=== PATIENT | male | born 1980 | race Caucasian/White ===

== ENCOUNTER 2016-07-02 12:07 | Emergency (ER) | payer OTHER ==
--- NOTE | 2016-07-02 14:13 | EDDOCDS ---
Physician Documentation [facility] Name: José Miguel Terrell Age: 35 yrs Sex: Male : 1980 Arrival Date: 07/02/2016 Time: 12:07 Bed I10 / 23 Private MD: Flynn Prado A. Disposition: 07/02/16 13:59 Discharged to Home/Self Care. Impression: Dental caries. - Condition is Stable. - Discharge Instructions: Dental Pain. - Prescriptions for Clindamycin HCl 300 mg Oral Capsule - take 1 capsule by ORAL route every 6 hours; 40 capsule. Percocet 5- 325 mg Oral Tablet - take 1 tablet by ORAL route every 6 hours As needed MDD: 4 tabs; 20 tablet. - Medication Reconciliation, Local Pharmacy Hours form. - Follow up: Your, Dentist; When: As soon as possible; Reason: Further diagnostic work-up, Continuance of care. - Problem is an ongoing problem. - Symptoms have worsened. Historical: - Allergies: PENICILLINS; - Home Meds: 1. lisinopril 20 mg Oral tab 1 tab once daily (Last dose: 07/01/2016) 2. Xigduo XR Unknown oral once daily (Last dose: 07/01/2016) 3. Unknown Antidepressant daily - PMHx: Depression; Diabetes - NIDDM: controlled; Hypertension; - PSHx: bilateral eye surgery; - Social history: Smoking status: Patient states was never smoker of tobacco. No barriers to communication noted, The patient speaks fluent Yi, Speaks appropriately for age. - Family history: Not pertinent. - : The pt / caregiver states he / she is not on anticoagulants. Home medication list is obtained from the patient. - Exposure Risk Screening:: None identified. Vital Signs: 07/02 12:13 BP 202 / 106 RA Sitting (auto/lg); Pulse 93; Resp 18; Temp 98.5(T); Pulse Ox 99% on dem1 R/A; Weight 90.72 kg / 200 lbs; Height 5 ft. 8 in. (172.72 cm); Pain 9/10; 14:00 Resp 18; Pain 8/10; ttb 12:13 Body Mass Index 30.41 (90.72 kg, 172.72 cm) dem1 Signatures: Glynn Moreno, TALENT ACQUISITION CONSULTANT TALENT ACQUISITION CONSULTANT Sandra Feliciano,RN RN kr3 Rachel Mack, RN RN ttb TOMEKAD
--- NOTE | 2016-07-02 14:13 | EDDOCDS ---
Nurse's Notes [facility] Name: José Miguel Terrell Age: 35 yrs Sex: Male : 1980 Arrival Date: 07/02/2016 Time: 12:07 Bed I10 / 23 Private MD: Flynn Prado A. Diagnosis: Dental caries Presentation: 07/02 12:13 Presenting complaint: Patient states: right upper dental pain for 1 1/2 days. Adult kr3 Sepsis Screening: The patient does not have new or worsening altered mentation. Patient's respiratory rate is less than 22. Systolic blood pressure is greater than 100. Patient has a qSOFA score of 0- Negative Sepsis Screen. Suicide/Homicide risk assessment- the patient denies having any suicidal and/or homicidal ideations and does not present with any other emotional, behavioral or mental health complaints. Status: Patient is not a director of physiotherapy services or dependent. Transition of care: patient was not received from another setting of care. 12:13 Method Of Arrival: Walkin/Carried/Asstd kr3 12:13 Acuity: ALONZO Level 4 kr3 Triage Assessment: 12:15 General: Appears uncomfortable, Behavior is appropriate for age, cooperative. Pain: kr3 Location: right side of face Pain currently is 8 out of 10 on a pain scale. HIV screening NA for this visit Offered previously. EENT: Reports pain in mouth. Respiratory: Respiratory effort is even, unlabored. Derm: Swollen area noted on right cheek. Historical: - Allergies: PENICILLINS; - Home Meds: 1. lisinopril 20 mg Oral tab 1 tab once daily (Last dose: 07/01/2016) 2. Xigduo XR Unknown oral once daily (Last dose: 07/01/2016) 3. Unknown Antidepressant daily - PMHx: Depression; Diabetes - NIDDM: controlled; Hypertension; - PSHx: bilateral eye surgery; - Social history: Smoking status: Patient states was never smoker of tobacco. No barriers to communication noted, The patient speaks fluent Sao Tomean, Speaks appropriately for age. - Family history: Not pertinent. - : The pt / caregiver states he / she is not on anticoagulants. Home medication list is obtained from the patient. - Exposure Risk Screening:: None identified. Screenin:09 Screening information is obtained from the patient. Fall risk: No risks identified. ttb Assistance ADL's: requires no assistance with activities of daily living. Abuse/DV Screen: The patient / caregiver reports he/she is: not in a situation that causes fear, pain or injury. Nutritional screening: No deficits noted. Advance Directives: Currently, there is no health care proxy. home support is adequate. Assessment: 13:30 Adult Sepsis Screening: The patient does not have new or worsening altered mentation. ttb Patient's respiratory rate is less than 22. Systolic blood pressure is greater than 100. Patient has a qSOFA score of 0- Negative Sepsis Screen. 14:09 General: Appears in no apparent distress, well nourished, well groomed, Behavior is ttb appropriate for age, cooperative, pleasant. Pain: Location: right mouth. Neurological: Level of Consciousness is awake, alert. Cardiovascular: Chest pain is denied. Respiratory: Airway is patent Denies cough, shortness of breath. GI: Denies nausea, vomiting, pain. Derm: Skin is normal. Injury Description: No known injury. Vital Signs: 12:13 BP 202 / 106 RA Sitting (auto/lg); Pulse 93; Resp 18; Temp 98.5(T); Pulse Ox 99% on [facility] R/A; Weight 90.72 kg; Height 5 ft. 8 in. (172.72 cm); Pain 9/10; 14:00 Resp 18; Pain 8/10; ttb 12:13 Body Mass Index 30.41 (90.72 kg, 172.72 cm) [facility] Vitals: 12:10 Log In Time: July 02, 2016 at 12:07. [facility] ED Course: 12:09 Patient visited by Juliocesar Collado. gr2 12:09 Patient moved to Waiting gr2 12:10 NO PRIMARY PHYSICIAN, . is Private Physician. gr2 12:11 Patient visited by Juliocesar Collado. gr2 12:11 Patient moved to Pre RCE gr2 12:13 Triage Initiated kr3 12:15 Flynn Prado is Private Physician. dem1 13:46 Patient moved to I10 / 23 dsf 13:47 Glynn Moreno FNP is PHCP. ke 13:47 Patient visited by Glynn Moreno FNP. ke 13:47 Patient visited by Glynn Moreno FNP. ke 13:57 Your, Dentist is Referral Physician. ke 14:09 The patient / caregiver is instructed regarding the plan of care and ED course. Patient ttb has correct armband on for positive identification. 14:09 No IV's were initiated during this patient's visit. No procedures done that require ttb assistance. 14:12 Patient visited by Rachel Mack RN. ttb Order Results: There are currently no results for this order. Outcome: 13:59 Discharge ordered by Provider. ke 14:09 Discharge Assessment: Patient awake, alert and oriented x 3. No cognitive and/or ttb functional deficits noted. Patient verbalized understanding of disposition instructions. Patient awake and alert. patient administered narcotics - no. The following High Risk Discharge criteria are identified: None. Discharged to home ambulatory. Condition: good Condition: stable Condition: improved. Discharge instructions given to patient, Instructed on discharge instructions, follow up and referral plans. medication usage, no driving heavy equipment, no drinking with medication, Demonstrated understanding of instructions, medications, no d/d with narcs Pt was receptive of discharge instructions/ teaching. Prescriptions given X 2. No special radiology studies were completed. Property :Personal belongings accompany Pt. 14:12 Patient left the ED. ttb Signatures: Glynn Moreno, DRY HOUSE WHEELER DRY HOUSE WHEELER Sandra FelicianoRN RN Megan MaldonadoRN RN Gil Dixon dem1 Rachel Mack, BERNABE RN ttb Juliocesar Collado gr2 Corrections: (The following items were deleted from the chart) 12:15 12:10 Log In Time: July 02, 2016 at 12:10 gr2 dem1 12:15 12:10 BP 158 / 107; Pulse 78bpm; Resp 18bpm; Spontaneous; Pulse Ox 98% RA; Temp 96.0F dem1 Oral; 104.33 kg Reported; Height 5 ft. 10 in. Reported; BMI: 33.0; Pain 3/10; gr2 MTDD
--- NOTE | 2016-07-04 15:12 | EDDOCDS ---
Physician Documentation [facility] Name: José Miguel Terrell Age: 35 yrs Sex: Male : 1980 Arrival Date: 07/02/2016 Time: 12:07 Bed I10 / 23 Private MD: Flynn Prado A. Disposition: 07/02/16 13:59 Discharged to Home/Self Care. Impression: Dental caries. - Condition is Stable. - Discharge Instructions: Dental Pain. - Prescriptions for Clindamycin HCl 300 mg Oral Capsule - take 1 capsule by ORAL route every 6 hours; 40 capsule. Percocet 5- 325 mg Oral Tablet - take 1 tablet by ORAL route every 6 hours As needed MDD: 4 tabs; 20 tablet. - Medication Reconciliation, Local Pharmacy Hours form. - Follow up: Your, Dentist; When: As soon as possible; Reason: Further diagnostic work-up, Continuance of care. - Problem is an ongoing problem. - Symptoms have worsened. Historical: - Allergies: PENICILLINS; - Home Meds: 1. lisinopril 20 mg Oral tab 1 tab once daily (Last dose: 07/01/2016) 2. Xigduo XR Unknown oral once daily (Last dose: 07/01/2016) 3. Unknown Antidepressant daily - PMHx: Depression; Diabetes - NIDDM: controlled; Hypertension; - PSHx: bilateral eye surgery; - Social history: Smoking status: Patient states was never smoker of tobacco. No barriers to communication noted, The patient speaks fluent German, Speaks appropriately for age. - Family history: Not pertinent. - : The pt / caregiver states he / she is not on anticoagulants. Home medication list is obtained from the patient. - Exposure Risk Screening:: None identified. Vital Signs: 07/02 12:13 BP 202 / 106 RA Sitting (auto/lg); Pulse 93; Resp 18; Temp 98.5(T); Pulse Ox 99% on dem1 R/A; Weight 90.72 kg / 200 lbs; Height 5 ft. 8 in. (172.72 cm); Pain 9/10; 14:00 Resp 18; Pain 8/10; ttb 12:13 Body Mass Index 30.41 (90.72 kg, 172.72 cm) dem1 MDM: 14:44 [facility] Payment Agreement was scanned into [employer] and attached to record. pm4 07/03 07:40 T-Sheet-- Draft Copy was scanned into [employer] and attached to record. gb Signatures: Vivi Miller, Reg Reg gb Glynn Moreno, JEFF LEÓNP Sandra Feliciano,RN RN kr3 Rachel Mack RN RN ttb Ubaldo Harris, Reg Reg pm4 The chart was reviewed and I authenticate all verbal orders and agree with the evaluation and treatment provided.Attachments: 07/02 14:44 [facility] [place] pm4 07/03 07:40 T-Sheet-- Draft Copy gb Chart Complete MTDD
--- NOTE | 2016-07-04 15:12 | EDDOCDS ---
Physician Documentation [facility] Name: José Miguel Terrell Age: 35 yrs Sex: Male : 1980 Arrival Date: 07/02/2016 Time: 12:07 Bed I10 / 23 Private MD: Flynn Prado A. Disposition: 07/02/16 13:59 Discharged to Home/Self Care. Impression: Dental caries. - Condition is Stable. - Discharge Instructions: Dental Pain. - Prescriptions for Clindamycin HCl 300 mg Oral Capsule - take 1 capsule by ORAL route every 6 hours; 40 capsule. Percocet 5- 325 mg Oral Tablet - take 1 tablet by ORAL route every 6 hours As needed MDD: 4 tabs; 20 tablet. - Medication Reconciliation, Local Pharmacy Hours form. - Follow up: Your, Dentist; When: As soon as possible; Reason: Further diagnostic work-up, Continuance of care. - Problem is an ongoing problem. - Symptoms have worsened. Historical: - Allergies: PENICILLINS; - Home Meds: 1. lisinopril 20 mg Oral tab 1 tab once daily (Last dose: 07/01/2016) 2. Xigduo XR Unknown oral once daily (Last dose: 07/01/2016) 3. Unknown Antidepressant daily - PMHx: Depression; Diabetes - NIDDM: controlled; Hypertension; - PSHx: bilateral eye surgery; - Social history: Smoking status: Patient states was never smoker of tobacco. No barriers to communication noted, The patient speaks fluent Romansh, Speaks appropriately for age. - Family history: Not pertinent. - : The pt / caregiver states he / she is not on anticoagulants. Home medication list is obtained from the patient. - Exposure Risk Screening:: None identified. Vital Signs: 07/02 12:13 BP 202 / 106 RA Sitting (auto/lg); Pulse 93; Resp 18; Temp 98.5(T); Pulse Ox 99% on dem1 R/A; Weight 90.72 kg / 200 lbs; Height 5 ft. 8 in. (172.72 cm); Pain 9/10; 14:00 Resp 18; Pain 8/10; ttb 12:13 Body Mass Index 30.41 (90.72 kg, 172.72 cm) dem1 MDM: 14:44 [facility] Payment Agreement was scanned into [employer] and attached to record. pm4 07/03 07:40 T-Sheet-- Draft Copy was scanned into [employer] and attached to record. gb Signatures: Vivi Miller, Reg Reg gb Glynn Moreno, JEFF LEÓNP Sandra Feliciano,RN RN kr3 Rachel Mack RN RN ttb Ubaldo Harris, Reg Reg pm4 The chart was reviewed and I authenticate all verbal orders and agree with the evaluation and treatment provided.Attachments: 07/02 14:44 [facility] Payment Agreement pm4 07/03 07:40 T-Sheet-- Draft Copy gb Chart Complete MTDD
--- NOTE | 2016-07-04 15:13 | EDDOCDS ---
Nurse's Notes [facility] Name: José Miguel Terrell Age: 35 yrs Sex: Male : 1980 Arrival Date: 07/02/2016 Time: 12:07 Bed I10 / 23 Private MD: Flynn Prado A. Diagnosis: Dental caries Presentation: 07/02 12:13 Presenting complaint: Patient states: right upper dental pain for 1 1/2 days. Adult kr3 Sepsis Screening: The patient does not have new or worsening altered mentation. Patient's respiratory rate is less than 22. Systolic blood pressure is greater than 100. Patient has a qSOFA score of 0- Negative Sepsis Screen. Suicide/Homicide risk assessment- the patient denies having any suicidal and/or homicidal ideations and does not present with any other emotional, behavioral or mental health complaints. Status: Patient is not a service desk team lead or dependent. Transition of care: patient was not received from another setting of care. 12:13 Method Of Arrival: Walkin/Carried/Asstd kr3 12:13 Acuity: ALONZO Level 4 kr3 Triage Assessment: 12:15 General: Appears uncomfortable, Behavior is appropriate for age, cooperative. Pain: kr3 Location: right side of face Pain currently is 8 out of 10 on a pain scale. HIV screening NA for this visit Offered previously. EENT: Reports pain in mouth. Respiratory: Respiratory effort is even, unlabored. Derm: Swollen area noted on right cheek. Historical: - Allergies: PENICILLINS; - Home Meds: 1. lisinopril 20 mg Oral tab 1 tab once daily (Last dose: 07/01/2016) 2. Xigduo XR Unknown oral once daily (Last dose: 07/01/2016) 3. Unknown Antidepressant daily - PMHx: Depression; Diabetes - NIDDM: controlled; Hypertension; - PSHx: bilateral eye surgery; - Social history: Smoking status: Patient states was never smoker of tobacco. No barriers to communication noted, The patient speaks fluent Ethiopian, Speaks appropriately for age. - Family history: Not pertinent. - : The pt / caregiver states he / she is not on anticoagulants. Home medication list is obtained from the patient. - Exposure Risk Screening:: None identified. Screenin:09 Screening information is obtained from the patient. Fall risk: No risks identified. ttb Assistance ADL's: requires no assistance with activities of daily living. Abuse/DV Screen: The patient / caregiver reports he/she is: not in a situation that causes fear, pain or injury. Nutritional screening: No deficits noted. Advance Directives: Currently, there is no health care proxy. home support is adequate. Assessment: 13:30 Adult Sepsis Screening: The patient does not have new or worsening altered mentation. ttb Patient's respiratory rate is less than 22. Systolic blood pressure is greater than 100. Patient has a qSOFA score of 0- Negative Sepsis Screen. 14:09 General: Appears in no apparent distress, well nourished, well groomed, Behavior is ttb appropriate for age, cooperative, pleasant. Pain: Location: right mouth. Neurological: Level of Consciousness is awake, alert. Cardiovascular: Chest pain is denied. Respiratory: Airway is patent Denies cough, shortness of breath. GI: Denies nausea, vomiting, pain. Derm: Skin is normal. Injury Description: No known injury. Vital Signs: 12:13 BP 202 / 106 RA Sitting (auto/lg); Pulse 93; Resp 18; Temp 98.5(T); Pulse Ox 99% on [facility] R/A; Weight 90.72 kg; Height 5 ft. 8 in. (172.72 cm); Pain 9/10; 14:00 Resp 18; Pain 8/10; ttb 12:13 Body Mass Index 30.41 (90.72 kg, 172.72 cm) [facility] Vitals: 12:10 Log In Time: July 02, 2016 at 12:07. [facility] ED Course: 12:09 Patient visited by Juliocesar Collado. gr2 12:09 Patient moved to Waiting gr2 12:10 NO PRIMARY PHYSICIAN, . is Private Physician. gr2 12:11 Patient visited by Juliocesar Collado. gr2 12:11 Patient moved to Pre RCE gr2 12:13 Triage Initiated kr3 12:15 Flynn rPado is Private Physician. dem1 13:46 Patient moved to I10 / 23 dsf 13:47 Glynn Moreno FNP is PHCP. ke 13:47 Patient visited by Glynn Moreno FNP. ke 13:47 Patient visited by Glynn Moreno FNP. ke 13:57 Your, Dentist is Referral Physician. ke 14:09 The patient / caregiver is instructed regarding the plan of care and ED course. Patient ttb has correct armband on for positive identification. 14:09 No IV's were initiated during this patient's visit. No procedures done that require ttb assistance. 14:12 Patient visited by Rachel Mack RN. ttb 14:40 Patient name changed from José Miguel\Zulma\Dhruv\S\Xander\S\ to José Miguel\Zulma\Calixto\S\Xander. EDMS 14:44 [place] [place] was scanned into [employer] and attached to record. pm4 07/03 07:40 T-Sheet-- Draft Copy was scanned into [employer] and attached to record. gb Order Results: There are currently no results for this order. Outcome: 07/02 13:59 Discharge ordered by Provider. ke 14:09 Discharge Assessment: Patient awake, alert and oriented x 3. No cognitive and/or ttb functional deficits noted. Patient verbalized understanding of disposition instructions. Patient awake and alert. patient administered narcotics - no. The following High Risk Discharge criteria are identified: None. Discharged to home ambulatory. Condition: good Condition: stable Condition: improved. Discharge instructions given to patient, Instructed on discharge instructions, follow up and referral plans. medication usage, no driving heavy equipment, no drinking with medication, Demonstrated understanding of instructions, medications, no d/d with narcs Pt was receptive of discharge instructions/ teaching. Prescriptions given X 2. No special radiology studies were completed. Property :Personal belongings accompany Pt. 14:12 Patient left the ED. ttb Signatures: [facility] Vivi Miller, Reg Reg gb Glynn Moreno, REGISTERED PHARMACY TECHNICIAN REGISTERED PHARMACY TECHNICIAN Sandra FelicianoRN RN Megan Maldonado RN RN dsf Mack, Demeishia dem1 Rachel Mack RN RN ttb Juliocesar Collado gr2 Ubaldo Harris, Reg Reg pm4 Corrections: (The following items were deleted from the chart) 12:15 12:10 Log In Time: July 02, 2016 at 12:10 gr2 dem1 12:15 12:10 BP 158 / 107; Pulse 78bpm; Resp 18bpm; Spontaneous; Pulse Ox 98% RA; Temp 96.0F dem1 Oral; 104.33 kg Reported; Height 5 ft. 10 in. Reported; BMI: 33.0; Pain 3/10; gr2 Chart Complete MTDD
== END 2016-07-02 14:12 | disposition home or self-care (01) ==
LOC: M ED 12:07
DX: K02.9 Dental caries, unspecified (principal); K05.10 Chronic gingivitis, plaque induced; R68.84 Jaw pain; G50.1 Atypical facial pain; K08.9 Disorder of teeth and supporting structures, unspecified; F32.9 Major depressive disorder, single episode, unspecified; E11.9 Type 2 diabetes mellitus without complications; I10 Essential (primary) hypertension; Z79.899 Other long term (current) drug therapy; Z88.0 Allergy status to penicillin

== ENCOUNTER 2016-07-04 13:39 | Emergency (ER) | payer OTHER ==
--- NOTE | 2016-07-04 14:33 | EDDOCDS ---
Nurse's Notes [facility] Name: José Miguel Terrell Age: 35 yrs Sex: Male : 1980 Arrival Date: 07/04/2016 Time: 13:39 Bed TR7 Private MD: Flynn Prado A. Diagnosis: Pain in left upper arm;Pain in left shoulder Presentation: 07/04 13:43 Presenting complaint: Patient states: "I've been having some left arm pain today that jc4 has been causing me a little bit of concern". States that pain began a couple of hours ago and has been intermittent. Denies any chest pain. Denies any injury to arm. Pt points to left triceps when asked where pain located. Adult Sepsis Screening: The patient does not have new or worsening altered mentation. Patient's respiratory rate is less than 22. Systolic blood pressure is greater than 100. Patient has a qSOFA score of 0- Negative Sepsis Screen. Suicide/Homicide risk assessment- the patient denies having any suicidal and/or homicidal ideations and does not present with any other emotional, behavioral or mental health complaints. 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 Transition of care: patient was not received from another setting of care. 13:43 Acuity: ALONZO Level 3 jc4 13:43 Method Of Arrival: Walkin/Carried/Asstd jc4 Triage Assessment: 13:47 General: Appears in no apparent distress. Pain: Denies pain. Location: left tricep Is jc4 intermittent. HIV screening NA for this visit Offered previously. Musculoskeletal: Circulation, motion, and sensation intact. Historical: - Allergies: PENICILLINS (throat closes); - Home Meds: 1. lisinopril 20 mg Oral tab 1 tab once daily (Last dose: 07/04/2016 12:45) 2. Xigduo XR 5-500 mg oral TBph 1 tab twice a day (Last dose: 07/04/2016 12:45) 3. Percocet 5-325 mg Oral tab 1 tab every 4 hours as needed (Last dose: 07/04/2016 08:00) 4. Clindamycin Oral 1 cap 4 times per day (Last dose: 07/04/2016 08:00) 5. glipizide 2.5 mg oral tr24 1 tabs once daily (Last dose: 07/04/2016 12:45) 6. Sertraline 25 mg daily (Last dose: 07/04/2016 12:45) - PMHx: Depression; Diabetes - NIDDM: controlled; Hypertension; - PSHx: Eye Surgery for Retinopathy; - Social history: Smoking status: Patient states was never smoker of tobacco. No barriers to communication noted, The patient speaks fluent Tajik. - Family history: Not pertinent. - : The pt / caregiver states he / she is not on anticoagulants. Home medication list is obtained from the patient. - Exposure Risk Screening:: None identified. Screenin:30 Screening information is obtained from the patient. Primary language is Tajik. Fall dls risk: No risks identified. Assistance ADL's: requires no assistance with activities of daily living. Abuse/DV Screen: The patient / caregiver reports he/she is: not in a situation that causes fear, pain or injury. Nutritional screening: No deficits noted. Advance Directives: Currently, there is no health care proxy. There is no active DNR order. There is no Power of Simulation Educator. Advance directive information has not previously been placed in an [facility] medical record. home support is adequate. Assessment: 14:30 General: Appears uncomfortable, well developed, well nourished, well groomed, Behavior dls is cooperative. Awake, alert, oriented. Skin warm and dry. Moves all extremities. Bilateral breath sounds clear. Respirations unlabored. Abdomen soft, non-tender. No apparent distress. The patient / caregiver is instructed regarding the plan of care and ED course. Vital Signs: 13:41 BP 152 / 86; Pulse 98; Resp 18 S; Temp 98.5(O); Pulse Ox 98% on R/A; Weight 90.72 kg gr2 (R); Height 5 ft. 8 in. (172.72 cm) (R); Pain 6/10; 13:41 Body Mass Index 30.41 (90.72 kg, 172.72 cm) gr2 Vitals: 13:41 Log In Time: July 04, 2016 at 13:41. gr2 ED Course: 13:41 Patient visited by Juliocesar Collado. gr2 13:41 Flynn Prado is Private Physician. gr2 13:41 Patient moved to Waiting gr2 13:42 Patient visited by Juliocesar Collado. gr2 13:42 Patient moved to Pre RCE gr2 13:44 Triage Initiated jc4 13:48 Patient moved to PD2 / 27 jc4 13:58 Patient moved to Triage 2 js13 14:05 Vern Mayo PA is PHCP. btw 14:05 Darian Zapien MD is Attending Physician. btw 14:11 Patient visited by Vern Mayo PA. btw 14:25 Flynn Prado is Referral Physician. btw 14:29 Patient moved to TR7 dls 14:29 [facility] Payment Agreement was scanned into [employer] and attached to record. lg 14:30 Accompanied by Family Member. dls 14:32 No IV's were initiated during this patient's visit. No procedures done that require dls assistance. Order Results: There are currently no results for this order. Outcome: 14:25 Discharge ordered by Provider. btw 14:30 The following High Risk Discharge criteria are identified: None. Discharged to home dls ambulatory, with family. Condition: stable. Discharge instructions given to patient, Instructed on discharge instructions, follow up and referral plans. Demonstrated understanding of instructions, Pt was receptive of discharge instructions/ teaching. No special radiology studies were completed. 14:32 Discharge Assessment: Patient awake, alert and oriented x 3. No cognitive and/or dls functional deficits noted. Patient verbalized understanding of disposition instructions. patient administered narcotics - no. The following High Risk Discharge criteria are identified: None. Discharged to home ambulatory, with family. Property sent home with patient. 14:32 Patient left the ED. dls Signatures: Vaishnavi Denson RN RN dls Aditi Arzola, Reg Reg Vern Mayo PA PA bt Haven Sandoval RN RN jc4 Haven Schmitt RN RN js13 Juliocesar Collado gr2 Corrections: (The following items were deleted from the chart) 13:51 13:48 Home Meds: glipizide 5 mg Oral tr24 1 tab once daily (Last Dose: 07/04/2016 jc4 12:45); jc4 MTDD
--- NOTE | 2016-07-04 14:33 | EDDOCDS ---
Physician Documentation [facility] Name: José Miguel Terrell Age: 35 yrs Sex: Male : 1980 Arrival Date: 07/04/2016 Time: 13:39 Bed TR7 Private MD: Flynn Prado A. Disposition: 07/04/16 14:25 Discharged to Home/Self Care. Impression: Pain in left upper arm, Pain in left shoulder. - Condition is Stable. - Discharge Instructions: Musculoskeletal Pain, Shoulder Pain, [id number]. - Medication Reconciliation, Local Pharmacy Hours form. - Follow up: Flynn Prado; When: 2 - 3 days; Reason: Further diagnostic work-up, Recheck today's complaints, Continuance of care. - Problem is new. - Symptoms are unchanged. Historical: - Allergies: PENICILLINS (throat closes); - Home Meds: 1. lisinopril 20 mg Oral tab 1 tab once daily (Last dose: 07/04/2016 12:45) 2. Xigduo XR 5-500 mg oral TBph 1 tab twice a day (Last dose: 07/04/2016 12:45) 3. Percocet 5-325 mg Oral tab 1 tab every 4 hours as needed (Last dose: 07/04/2016 08:00) 4. Clindamycin Oral 1 cap 4 times per day (Last dose: 07/04/2016 08:00) 5. glipizide 2.5 mg oral tr24 1 tabs once daily (Last dose: 07/04/2016 12:45) 6. Sertraline 25 mg daily (Last dose: 07/04/2016 12:45) - PMHx: Depression; Diabetes - NIDDM: controlled; Hypertension; - PSHx: Eye Surgery for Retinopathy; - Social history: Smoking status: Patient states was never smoker of tobacco. No barriers to communication noted, The patient speaks fluent Romansh. - Family history: Not pertinent. - : The pt / caregiver states he / she is not on anticoagulants. Home medication list is obtained from the patient. - Exposure Risk Screening:: None identified. Vital Signs: 07/04 13:41 BP 152 / 86; Pulse 98; Resp 18 S; Temp 98.5(O); Pulse Ox 98% on R/A; Weight 90.72 kg / gr2 200 lbs (R); Height 5 ft. 8 in. (172.72 cm) (R); Pain 6/10; 13:41 Body Mass Index 30.41 (90.72 kg, 172.72 cm) gr2 MDM: 13:49 ECG WITH READING ER PHYS+CARDIAG ordered. EDVT 14:13 Financial registration complete. 14:29 [facility] Payment Agreement was scanned into [employer] and attached to record. Signatures: Dispatcher [employer] EDVT Vaishnavi Denson, BERNABE RN dls Aditi Arzola, Reg Reg lg Vern Mayo PA PA btw [place], Jennifer RN RN jc4 The chart was reviewed and I authenticate all verbal orders and agree with the evaluation and treatment provided.Corrections: (The following items were deleted from the chart) 13:51 13:48 Home Meds: glipizide 5 mg Oral tr24 1 tab once daily (Last Dose: 07/04/2016 jc4 12:45); jc4 Attachments: 14:29 [facility] Payment Agreement lg MTDD
--- NOTE | 2016-07-04 23:02 | ECGEPIP ---
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
--- NOTE | 2016-07-07 11:11 | EDDOCDS ---
Physician Documentation [facility] Name: José Miguel Terrell Age: 35 yrs Sex: Male : 1980 Arrival Date: 07/04/2016 Time: 13:39 Bed TR7 Private MD: Flynn Prado A. Disposition: 07/04/16 14:25 Discharged to Home/Self Care. Impression: Pain in left upper arm, Pain in left shoulder. - Condition is Stable. - Discharge Instructions: Musculoskeletal Pain, Shoulder Pain, Fqxs-nv-Axza. - Medication Reconciliation, Local Pharmacy Hours form. - Follow up: Flynn Prado; When: 2 - 3 days; Reason: Further diagnostic work-up, Recheck today's complaints, Continuance of care. - Problem is new. - Symptoms are unchanged. Historical: - Allergies: PENICILLINS (throat closes); - Home Meds: 1. lisinopril 20 mg Oral tab 1 tab once daily (Last dose: 07/04/2016 12:45) 2. Xigduo XR 5-500 mg oral TBph 1 tab twice a day (Last dose: 07/04/2016 12:45) 3. Percocet 5-325 mg Oral tab 1 tab every 4 hours as needed (Last dose: 07/04/2016 08:00) 4. Clindamycin Oral 1 cap 4 times per day (Last dose: 07/04/2016 08:00) 5. glipizide 2.5 mg oral tr24 1 tabs once daily (Last dose: 07/04/2016 12:45) 6. Sertraline 25 mg daily (Last dose: 07/04/2016 12:45) - PMHx: Depression; Diabetes - NIDDM: controlled; Hypertension; - PSHx: Eye Surgery for Retinopathy; - Social history: Smoking status: Patient states was never smoker of tobacco. No barriers to communication noted, The patient speaks fluent Romansh. - Family history: Not pertinent. - : The pt / caregiver states he / she is not on anticoagulants. Home medication list is obtained from the patient. - Exposure Risk Screening:: None identified. Vital Signs: 07/04 13:41 BP 152 / 86; Pulse 98; Resp 18 S; Temp 98.5(O); Pulse Ox 98% on R/A; Weight 90.72 kg / gr2 200 lbs (R); Height 5 ft. 8 in. (172.72 cm) (R); Pain 610; 13:41 Body Mass Index 30.41 (90.72 kg, 172.72 cm) gr2 MDM: 13:49 ECG WITH READING ER PHYS+CARDIAG ordered. EDMS 14:13 Financial registration complete. lg 14:29 [facility] Payment Agreement was scanned into [employer] and attached to record. lg 20:43 T-Sheet-- Draft Copy was scanned into [employer] and attached to record. klr 07/05 09:15 ECG/EKG was scanned into [employer] and attached to record. gb Signatures: Dispatcher [employer] EDMS Vaishnavi Denson, RN BERNABE dls Vivi Miller, Reg Reg gb Aditi Arzola, Reg Reg lg Vern Mayo PA PA btw Castle, Jennifer RN Yoli Conde The chart was reviewed and I authenticate all verbal orders and agree with the evaluation and treatment provided.Corrections: (The following items were deleted from the chart) 07/04 13:51 13:48 Home Meds: glipizide 5 mg Oral tr24 1 tab once daily (Last Dose: 07/04/2016 jc4 12:45); jc4 Attachments: 14:29 [facility] Payment Agreement lg 20:43 T-Sheet-- Draft Copy r 07/05 09:15 ECG/EKG gb Chart Complete MTDD
--- NOTE | 2016-07-07 11:11 | EDDOCDS ---
Physician Documentation [facility] Name: José Miguel Terrell Age: 35 yrs Sex: Male : 1980 Arrival Date: 07/04/2016 Time: 13:39 Bed TR7 Private MD: Flynn Prado A. Disposition: 07/04/16 14:25 Discharged to Home/Self Care. Impression: Pain in left upper arm, Pain in left shoulder. - Condition is Stable. - Discharge Instructions: Musculoskeletal Pain, Shoulder Pain, Geto-ht-Cveo. - Medication Reconciliation, Local Pharmacy Hours form. - Follow up: Flynn Prado; When: 2 - 3 days; Reason: Further diagnostic work-up, Recheck today's complaints, Continuance of care. - Problem is new. - Symptoms are unchanged. Historical: - Allergies: PENICILLINS (throat closes); - Home Meds: 1. lisinopril 20 mg Oral tab 1 tab once daily (Last dose: 07/04/2016 12:45) 2. Xigduo XR 5-500 mg oral TBph 1 tab twice a day (Last dose: 07/04/2016 12:45) 3. Percocet 5-325 mg Oral tab 1 tab every 4 hours as needed (Last dose: 07/04/2016 08:00) 4. Clindamycin Oral 1 cap 4 times per day (Last dose: 07/04/2016 08:00) 5. glipizide 2.5 mg oral tr24 1 tabs once daily (Last dose: 07/04/2016 12:45) 6. Sertraline 25 mg daily (Last dose: 07/04/2016 12:45) - PMHx: Depression; Diabetes - NIDDM: controlled; Hypertension; - PSHx: Eye Surgery for Retinopathy; - Social history: Smoking status: Patient states was never smoker of tobacco. No barriers to communication noted, The patient speaks fluent Bengali. - Family history: Not pertinent. - : The pt / caregiver states he / she is not on anticoagulants. Home medication list is obtained from the patient. - Exposure Risk Screening:: None identified. Vital Signs: 07/04 13:41 BP 152 / 86; Pulse 98; Resp 18 S; Temp 98.5(O); Pulse Ox 98% on R/A; Weight 90.72 kg / gr2 200 lbs (R); Height 5 ft. 8 in. (172.72 cm) (R); Pain 610; 13:41 Body Mass Index 30.41 (90.72 kg, 172.72 cm) gr2 MDM: 13:49 ECG WITH READING ER PHYS+CARDIAG ordered. EDMS 14:13 Financial registration complete. lg 14:29 [facility] Payment Agreement was scanned into [employer] and attached to record. lg 20:43 T-Sheet-- Draft Copy was scanned into [employer] and attached to record. klr 07/05 09:15 ECG/EKG was scanned into [employer] and attached to record. gb Signatures: Dispatcher [employer] EDMS Vaishnavi Denson, RN BERNABE dls Vivi Miller, Reg Reg gb Aditi Arzola, Reg Reg lg Vern Mayo PA PA btw Castle, Jennifer RN Yoli Conde The chart was reviewed and I authenticate all verbal orders and agree with the evaluation and treatment provided.Corrections: (The following items were deleted from the chart) 07/04 13:51 13:48 Home Meds: glipizide 5 mg Oral tr24 1 tab once daily (Last Dose: 07/04/2016 jc4 12:45); jc4 Attachments: 14:29 [facility] Payment Agreement lg 20:43 T-Sheet-- Draft Copy r 07/05 09:15 ECG/EKG gb Chart Complete MTDD
--- NOTE | 2016-07-07 11:11 | EDDOCDS ---
Nurse's Notes [facility] Name: José Miguel Vegas Age: 35 yrs Sex: Male : 1980 Arrival Date: 07/04/2016 Time: 13:39 Bed TR7 Private MD: Flynn Prado A. Diagnosis: Pain in left upper arm;Pain in left shoulder Presentation: 07/04 13:43 Presenting complaint: Patient states: "I've been having some left arm pain today that jc4 has been causing me a little bit of concern". States that pain began a couple of hours ago and has been intermittent. Denies any chest pain. Denies any injury to arm. Pt points to left triceps when asked where pain located. Adult Sepsis Screening: The patient does not have new or worsening altered mentation. Patient's respiratory rate is less than 22. Systolic blood pressure is greater than 100. Patient has a qSOFA score of 0- Negative Sepsis Screen. Suicide/Homicide risk assessment- the patient denies having any suicidal and/or homicidal ideations and does not present with any other emotional, behavioral or mental health complaints. Status: Patient is not a mobile equipment servicer or dependent. Transition of care: patient was not received from another setting of care. 13:43 Acuity: ALONZO Level 3 jc4 13:43 Method Of Arrival: Walkin/Carried/Asstd jc4 Triage Assessment: 13:47 General: Appears in no apparent distress. Pain: Denies pain. Location: left tricep Is jc4 intermittent. HIV screening NA for this visit Offered previously. Musculoskeletal: Circulation, motion, and sensation intact. Historical: - Allergies: PENICILLINS (throat closes); - Home Meds: 1. lisinopril 20 mg Oral tab 1 tab once daily (Last dose: 07/04/2016 12:45) 2. Xigduo XR 5-500 mg oral TBph 1 tab twice a day (Last dose: 07/04/2016 12:45) 3. Percocet 5-325 mg Oral tab 1 tab every 4 hours as needed (Last dose: 07/04/2016 08:00) 4. Clindamycin Oral 1 cap 4 times per day (Last dose: 07/04/2016 08:00) 5. glipizide 2.5 mg oral tr24 1 tabs once daily (Last dose: 07/04/2016 12:45) 6. Sertraline 25 mg daily (Last dose: 07/04/2016 12:45) - PMHx: Depression; Diabetes - NIDDM: controlled; Hypertension; - PSHx: Eye Surgery for Retinopathy; - Social history: Smoking status: Patient states was never smoker of tobacco. No barriers to communication noted, The patient speaks fluent Lithuanian. - Family history: Not pertinent. - : The pt / caregiver states he / she is not on anticoagulants. Home medication list is obtained from the patient. - Exposure Risk Screening:: None identified. Screenin:30 Screening information is obtained from the patient. Primary language is Lithuanian. Fall dls risk: No risks identified. Assistance ADL's: requires no assistance with activities of daily living. Abuse/DV Screen: The patient / caregiver reports he/she is: not in a situation that causes fear, pain or injury. Nutritional screening: No deficits noted. Advance Directives: Currently, there is no health care proxy. There is no active DNR order. There is no Power of Anatomy And Physiology Instructor. Advance directive information has not previously been placed in an [facility] medical record. home support is adequate. Assessment: 14:30 General: Appears uncomfortable, well developed, well nourished, well groomed, Behavior dls is cooperative. Awake, alert, oriented. Skin warm and dry. Moves all extremities. Bilateral breath sounds clear. Respirations unlabored. Abdomen soft, non-tender. No apparent distress. The patient / caregiver is instructed regarding the plan of care and ED course. Vital Signs: 13:41 BP 152 / 86; Pulse 98; Resp 18 S; Temp 98.5(O); Pulse Ox 98% on R/A; Weight 90.72 kg gr2 (R); Height 5 ft. 8 in. (172.72 cm) (R); Pain 6/10; 13:41 Body Mass Index 30.41 (90.72 kg, 172.72 cm) gr2 Vitals: 13:41 Log In Time: July 04, 2016 at 13:41. gr2 ED Course: 13:41 Patient visited by Juliocesar Collado. gr2 13:41 Flynn Prado is Private Physician. gr2 13:41 Patient moved to Waiting gr2 13:42 Patient visited by Juliocesar Collado. gr2 13:42 Patient moved to Pre RCE gr2 13:44 Triage Initiated jc4 13:48 Patient moved to PD2 / 27 jc4 13:58 Patient moved to Triage 2 js13 14:05 Vern Mayo PA is PHCP. btw 14:05 Darian Zapien MD is Attending Physician. btw 14:11 Patient visited by Vern Mayo PA. btw 14:25 Flynn Prado is Referral Physician. btw 14:29 Patient moved to TR7 dls 14:29 [facility] Payment Agreement was scanned into [employer] and attached to record. lg 14:30 Accompanied by Family Member. dls 14:32 No IV's were initiated during this patient's visit. No procedures done that require dls assistance. 20:43 T-Sheet-- Draft Copy was scanned into [employer] and attached to record. klr 23:42 EKG-ADULT Returned. EDMS 07/05 09:15 ECG/EKG was scanned into [employer] and attached to record. gb Order Results: Radiology Order: EKG-ADULT Test: EKG-ADULT REASON FOR EXAMINATION: left arm pain; Stationary ECG Study; [facility] - ED; ; Test Date: 2016-07-04; Pat Name: JOSÉ MIGUEL VEGAS Department:; Room: -; Gender: M Solar Sales Associate: ; : 1980 Requested By: Darian Zapien; Order Number: [id number] Reading MD: Aung Cuadra; Measurements; Intervals [place]; Rate: 99 P: 43; MO: 158 QRS: 42; QRSD: 93 T: 33; QT: 341; QTc: 438; Interpretive Statements; SINUS RHYTHM; ; Electronically Signed On 07-04-2016 23:02:41 EST by Aung Cuadra; Outcome: 07/04 14:25 Discharge ordered by Provider. btw 14:30 The following High Risk Discharge criteria are identified: None. Discharged to home dls ambulatory, with family. Condition: stable. Discharge instructions given to patient, Instructed on discharge instructions, follow up and referral plans. Demonstrated understanding of instructions, Pt was receptive of discharge instructions/ teaching. No special radiology studies were completed. 14:32 Discharge Assessment: Patient awake, alert and oriented x 3. No cognitive and/or dls functional deficits noted. Patient verbalized understanding of disposition instructions. patient administered narcotics - no. The following High Risk Discharge criteria are identified: None. Discharged to home ambulatory, with family. Property sent home with patient. 14:32 Patient left the ED. dls Signatures: Dispatcher [employer] EDMS Vaishnavi Denson, RN RN dls Vivi Miller, Reg Reg gb Aditi Arzola, Reg Reg lg Vern Mayo PA PA btw Castle, Jennifer, RN RN jc4 Haven Schmitt RN RN js13 Juliocesar Collado gr2 Yoli Keyes Corrections: (The following items were deleted from the chart) 13:51 13:48 Home Meds: glipizide 5 mg Oral tr24 1 tab once daily (Last Dose: 07/04/2016 jc4 12:45); jc4 Chart Complete MTDD
== END 2016-07-04 14:32 | disposition home or self-care (01) ==
LOC: M ED 13:39
DX: M25.512 Pain in left shoulder (principal); I10 Essential (primary) hypertension; E11.9 Type 2 diabetes mellitus without complications; F32.9 Major depressive disorder, single episode, unspecified; Z79.899 Other long term (current) drug therapy; Z79.84 Long term (current) use of oral hypoglycemic drugs; Z88.0 Allergy status to penicillin

== ENCOUNTER 2017-06-03 18:31 | Emergency (ER) | payer OTHER ==
[~2017-06-03] VITALS: Ht 172.7 cm; Wt 97.7 kg
[2017-06-03] MEDS ORDERED: LISI-538 PO (18:47)
[2017-06-03] MEDS ORDERED: OMEP40CA2 PO (18:47)
[2017-06-03] MEDS ORDERED: ZOLO50TA PO (18:47)
[2017-06-03] MEDS ORDERED: GLIP10TA6 PO (18:47)
[2017-06-03] MEDS ORDERED: INVO1TAB2 PO (18:47)
[2017-06-03] MEDS ORDERED: ONDANSETRON 4MG/2ML VIAL (J2405) IV ONE (19:00)
[2017-06-03] MEDS ORDERED: PANTOPRAZOLE 40MG INJ (PROTONIX) (C9113) IV ONE (19:00)
[2017-06-03] MEDS ORDERED: NS 1,000 ML IV ONE ×2 (19:00→20:00)
[2017-06-03 19:15] LABS: BASO # 0.1 10^3/uL (0.0-0.2); BASO % 0.3 % (0.0-1.0); EOS # 0.2 10^3/uL (0.0-0.50); EOS % 0.8 % (0.0-3.0); IMMATURE GRANULOCYTE % 0.7 % (0-0); LYMPH % 4.9 % (24.0-44.0); MEAN CORPUSCULAR HEMOGLOBIN 28.2 pg (27.0-33.0); MEAN CORPUSCULAR VOLUME 82.9 fl (80.0-96.0); MONO # 1.9 10^3/uL (0.0-0.8); MONO % 9.2 % (0.0-5.0); NEUTROPHILS # 17.7 10^3/uL (1.8-7.7); NEUTROPHILS % 84.1 % (36.0-66.0); PLATELET COUNT, AUTOMATED 337 10^3/uL (150-450); RED CELL DISTRIBUTION WIDTH 14.1 % (11.5-14.5); WHITE BLOOD COUNT 21.1 10^3/uL (4.0-10.0)
[2017-06-03 19:45] LABS: ALBUMIN 4.3 GM/DL (3.2-5.2); ALBUMIN/GLOBULIN RATIO 0.96 (1.00-1.93); BILIRUBIN,DIRECT 0.2 MG/DL (0.0-0.2); BILIRUBIN,TOTAL 0.9 MG/DL (0.2-1.0); CALCIUM LEVEL 9.5 MG/DL (8.5-10.1); CREATININE FOR GFR 1.73 MG/DL (0.70-1.30); GLOMERULAR FILTRATION RATE 47.6 (>60); TOTAL PROTEIN 8.8 GM/DL (6.4-8.2)
--- NOTE | 2017-06-03 20:10 | REPUSA ---
CT of the cervical spine Clinical history: Pain. Technique: Multiple axial CT images were obtained through the cervical spine without administration o f contrast. Coronal and sagittal 3-D reconstructed images were also obtained. Comparison: None. Findings: The cervical vertebral bodies are in satisfactory positioning and alignment. No fractures or dislocat ions are demonstrated. The odontoid process is intact. Intervertebral disc spaces are well-maintained . There is no evidence of facet subluxation. The neural foramen appear grossly patent. The cervical c ranial junction is intact. The cervical spinal canal demonstrates normal caliber and contour without evidence of spinal stenosis. The surrounding soft tissues are within normal limits. Impression: Unremarkable CT examination of the cervical spine.
[2017-06-03] MEDS ORDERED: KETOROLAC 30 MG/ML VIAL (J1885) IV ONE (20:15)
[2017-06-03] MEDS ORDERED: METOCLOPRAMIDE INJ 10MG/2ML VIAL (J2765) IV ONE (20:15)
[2017-06-03] MEDS ORDERED: ZOFR4TAB3 PO (21:12)
[2017-06-03 21:17] VITALS: BP 122/75
--- NOTE | 2017-06-03 21:53 | REP ---
ACUTE ABDOMINAL SERIES: 06/03/2017. Clinical history: Abdominal pain. Findings: PA chest: Comparison 05/05/2012. The lung sarkar are well inflated and without infiltrate, effusion, atelectasis or mass. The heart, mediastinal and hilar contour normal. Airway and aorta intact. Bony thorax is unremarkable. There is no free air under the diaphragm. Flat upright abdomen: Small bowel loops and colon are mostly fluid-filled with scattered air in the colon outlining the haustral markings. No obstruction, mass or free air. Mostly fluid-filled loops would suggest some gastroenteritis or ileus. There are calcifications in the seminal vesicles that are usually seen in diabetics. A few pelvic phleboliths are seen. Bones are intact. No other abnormal calcifications. No masses. Impression: 1. Nonspecific gas pattern with mostly fluid-filled colon and small bowel loops without dilatation. The air-fluid levels seen in the colon are in small haustral markings indicating that the colon is fluid-filled. No air-fluid levels or obstruction. No free air. No mass. 2. PA chest negative. Signed by Scar Otto MD 06/04/2017 08:23 A
--- NOTE | 2017-06-04 08:37 | REP ---
Sacrum and coccyx: 06/03/2017. Clinical history: Abdominal pelvic pain. Findings: Inlet and outlet views as well as lateral view of the sacrum and coccyx provided. Lateral view shows no malalignment. There is no visible or displaced fracture. The sacral ala and foramina were intact on the AP views. SI joints intact. No erosion, sclerosis or evidence of sacral fracture. Minor degenerative changes at the L5-S1 level. Pelvic ring intact. Pelvic phleboliths are noted. There are calcified seminal vesicles bilaterally. Impression: 1. No evidence of sacral or coccygeal fracture. Signed by Scar Otto MD 06/04/2017 06:40 P
== END 2017-06-03 21:23 | disposition home or self-care (01) ==
LOC: M ED 18:31 → EDBD 18:31 → M ED 21:23
DX: K21.9 Gastro-esophageal reflux disease without esophagitis (principal); R55 Syncope and collapse; R19.7 Diarrhea, unspecified; E11.9 Type 2 diabetes mellitus without complications; I10 Essential (primary) hypertension; Z79.899 Other long term (current) drug therapy; Z79.84 Long term (current) use of oral hypoglycemic drugs; Z88.0 Allergy status to penicillin; F17.210 Nicotine dependence, cigarettes, uncomplicated
CPT/HCPCS: 72125; 72220; 74022; 80048; 80076; 83690; 85025; 96374; 96375; 99284; C9113; J1885; J2405; J2765

== ENCOUNTER 2017-08-12 01:01 | Inpatient (IN) | payer BC, OTHER ==
[2017-08-12 06:07] LABS: BASO % 0.3 % (0.0-1.0); EOS # 0.2 10^3/uL (0.0-0.50); EOS % 1.7 % (0.0-3.0); HEMATOCRIT 39.3 % (42.0-52.0); HEMOGLOBIN 13.6 g/dl (14.0-18.0); IMMATURE GRANULOCYTE % 0.3 % (0-3.0); LYMPH # 1.7 10^3/uL (1.5-4.5); LYMPH % 14.5 % (24.0-44.0); MEAN CORPUSCULAR HEMOGLOBIN 27.7 pg (27.0-33.0); MEAN CORPUSCULAR HGB CONC 34.6 g/dl (32.0-36.5); MONO # 1.7 10^3/uL (0.0-0.8); MONO % 13.8 % (0.0-5.0); NEUTROPHILS # 8.3 10^3/uL (1.8-7.7); NEUTROPHILS % 69.4 % (36.0-66.0); PLATELET COUNT, AUTOMATED 283 10^3/uL (150-450); RED BLOOD COUNT 4.91 10^6/uL (4.30-6.10); RED CELL DISTRIBUTION WIDTH 13.2 % (11.5-14.5); WHITE BLOOD COUNT 11.9 10^3/uL (4.0-10.0)
[2017-08-12] MEDS: LevoFLOXacin IV 750 MG in APPROPRIATE DILUENT 1 EA IV (06:10)
[2017-08-12 06:25] LABS: ANION GAP 11 MEQ/L (8-16); BLOOD UREA NITROGEN 12 MG/DL (7-18); CALCIUM LEVEL 8.7 MG/DL (8.5-10.1); CARBON DIOXIDE LEVEL 24 MEQ/L (21-32); CHLORIDE LEVEL 105 MEQ/L (98-107); CREATININE FOR GFR 0.88 MG/DL (0.70-1.30); GLOMERULAR FILTRATION RATE > 60.0 (>60); GLUCOSE, FASTING 89 MG/DL (70-100); POTASSIUM SERUM 3.4 MEQ/L (3.5-5.1); SODIUM LEVEL 140 MEQ/L (136-145)
[2017-08-12] MEDS: metroNIDAZOLE 500 MG in APPROPRIATE DILUENT 1 EA IV (07:39)
[2017-08-12 08:03] LABS: ERYTHROCYTE SEDIMENTATION RATE 62 mm/hr (0-15)
[2017-08-12] MEDS: VANCOMYCIN HCL 1,000 MG, VIAL MATE ADAPTER 1 EACH in D5W 250 ML IV (08:55)
[2017-08-12] MEDS ORDERED: GLUCAGON FOR INJ 1 MG VIAL (J1610) SC (09:15)
[2017-08-12] MEDS ORDERED: DEXTROSE 50% 50 ML SYRINGE IV (09:15)
[2017-08-12] MEDS ORDERED: GLUCOSE 4 GM CHEW TABLET PO (09:15)
[2017-08-12] MEDS ORDERED: ACETAMINOPHEN 500 MG TAB PO (09:30)
[2017-08-12 09:57] LABS: CHOLESTEROL LEVEL 153 MG/DL (<200); CHOLESTEROL RISK RATIO 5.275 (<5); HDL CHOLESTEROL 29 MG/DL (>40); LDL CHOLESTEROL 95.2 MG/DL (<100); NON-HDL-C 124 MG/DL; TRIGLYCERIDES LEVEL 144 MG/DL (<150)
[2017-08-12] MEDS: KCL 40MEQ in NS 1000ML 1,000 ML IV (10:05)
[2017-08-12] MEDS: LISINOPRIL 20 MG TAB PO (10:05)
[2017-08-12] MEDS: OMEPRAZOLE 20 MG CAP PO (10:06)
[2017-08-12] MEDS: SERTRALINE HCL 50 MG TAB PO (10:06)
[2017-08-12 10:17] LABS: ESTIMATED AVERAGE GLUCOSE 180 MG/DL (60-110); HEMOGLOBIN A1c 7.9 %
[2017-08-12 10:32] LABS: FOLATE 12.9 NG/ML (>5.4)
[2017-08-12 10:33] LABS: VITAMIN B12 LEVEL 357 PG/ML (247-911)
[2017-08-12] MEDS: HumaLOG INSULIN (NovoLOG) PER UNIT SC ×3 (13:39→21:31)
[2017-08-12 13:41] LABS: BEDSIDE GLUCOSE 107 MG/DL (70-105)
[2017-08-12 18:03] LABS: BEDSIDE GLUCOSE 137 MG/DL (70-105)
[2017-08-12] MEDS ORDERED: PROHANCE 279.3MG/ML 5ML VIAL (A9576) As Ordered (19:31)
[2017-08-12] MEDS: ATORVASTATIN 20 MG TAB PO (21:31)
[2017-08-12 21:43] LABS: BEDSIDE GLUCOSE 133 MG/DL (70-105)
[2017-08-13] MEDS: LevoFLOXacin IV 500 MG in APPROPRIATE DILUENT 1 EA IV (05:16)
[2017-08-13 07:09] LABS: BASO # 0.1 10^3/uL (0.0-0.2); BASO % 0.6 % (0.0-1.0); EOS # 0.3 10^3/uL (0.0-0.50); EOS % 3.2 % (0.0-3.0); HEMATOCRIT 37.9 % (42.0-52.0); HEMOGLOBIN 12.7 g/dl (14.0-18.0); IMMATURE GRANULOCYTE % 0.2 % (0-3.0); LYMPH # 1.9 10^3/uL (1.5-4.5); MEAN CORPUSCULAR HEMOGLOBIN 27.2 pg (27.0-33.0); MEAN CORPUSCULAR HGB CONC 33.5 g/dl (32.0-36.5); MEAN CORPUSCULAR VOLUME 81.2 fl (80.0-96.0); NEUTROPHILS # 4.9 10^3/uL (1.8-7.7); PLATELET COUNT, AUTOMATED 285 10^3/uL (150-450); RED BLOOD COUNT 4.67 10^6/uL (4.30-6.10); RED CELL DISTRIBUTION WIDTH 13.2 % (11.5-14.5)
[2017-08-13 07:28] LABS: BEDSIDE GLUCOSE 163 MG/DL (70-105)
[2017-08-13 07:30] LABS: ANION GAP 7 MEQ/L (8-16); BLOOD UREA NITROGEN 11 MG/DL (7-18); CALCIUM LEVEL 8.6 MG/DL (8.5-10.1); CARBON DIOXIDE LEVEL 27 MEQ/L (21-32); CHLORIDE LEVEL 104 MEQ/L (98-107); CREATININE FOR GFR 0.91 MG/DL (0.70-1.30); GLOMERULAR FILTRATION RATE > 60.0 (>60); GLUCOSE, FASTING 167 MG/DL (70-100); SODIUM LEVEL 138 MEQ/L (136-145)
[2017-08-13] MEDS: OMEPRAZOLE 20 MG CAP PO (08:12)
[2017-08-13] MEDS: SERTRALINE HCL 50 MG TAB PO (08:12)
[2017-08-13] MEDS: ENOXAPARIN 40 MG/0.4 ML SYRINGE (J1650) SC (08:12)
[2017-08-13] MEDS: HumaLOG INSULIN (NovoLOG) PER UNIT SC ×4 (08:12→21:00)
[2017-08-13] MEDS: LISINOPRIL 20 MG TAB PO (08:13)
[2017-08-13 11:39] LABS: BEDSIDE GLUCOSE 177 MG/DL (70-105)
[2017-08-13] MEDS ORDERED: LevoFLOXacin IV 500 MG in APPROPRIATE DILUENT 1 EA IV (12:00)
[2017-08-13] MEDS: VANCOMYCIN HCL 1,000 MG, VIAL MATE ADAPTER 1 EACH in D5W 250 ML IV (15:59)
[2017-08-13] MEDS ORDERED: LIDOCAINE 2% INJ 100 MG/5 ML SDV (FOR ANES.) As Ordered (17:05)
[2017-08-13] MEDS ORDERED: PROPOFOL 200 MG/20 ML VIAL As Ordered ×2 (17:05→17:42)
[2017-08-13] MEDS ORDERED: MIDAZOLAM INJ 2 MG/2 ML VIAL (J2250) As Ordered ×2 (17:06→17:26)
[2017-08-13] MEDS ORDERED: fentaNYL 100 MCG/2 ML INJECTION (J3010) As Ordered (17:06)
[2017-08-13] MEDS: LIDOCAINE 1% MDV 20ML VIAL As Ordered (17:42)
[2017-08-13] MEDS: BUPIVACAINE HCL 0.5% 30 ML VIAL As Ordered (17:42)
[2017-08-13] MEDS ORDERED: ONDANSETRON 4MG/2ML VIAL (J2405) As Ordered (17:44)
[2017-08-13] MEDS ORDERED: KETOROLAC 60 MG/2 ML VIAL (J1885) As Ordered (17:44)
[2017-08-13 18:24] LABS: BEDSIDE GLUCOSE 151 MG/DL (70-105)
[2017-08-13] MEDS ORDERED: PERCOCET 5MG/325MG TAB PO (18:30)
[2017-08-13] MEDS ORDERED: fentaNYL 100 MCG/2 ML INJECTION (J3010) IV (18:30)
[2017-08-13] MEDS ORDERED: ONDANSETRON 4MG/2ML VIAL (J2405) IV (18:30)
[2017-08-13] MEDS ORDERED: MORPHINE 4 MG/ML 1ML VIAL (J2270) IV (18:45)
[2017-08-13 21:27] LABS: BEDSIDE GLUCOSE 161 MG/DL (70-105)
[2017-08-13] MEDS: ATORVASTATIN 20 MG TAB PO (21:41)
[2017-08-14] MEDS: VANCOMYCIN HCL 1,000 MG, VIAL MATE ADAPTER 1 EACH in D5W 250 ML IV ×3 (00:24→17:12)
[2017-08-14] MEDS ORDERED: LevoFLOXacin IV 500 MG in APPROPRIATE DILUENT 1 EA IV (06:00)
[2017-08-14 06:48] LABS: BASO # 0.1 10^3/uL (0.0-0.2); BASO % 0.8 % (0.0-1.0); EOS # 0.3 10^3/uL (0.0-0.50); EOS % 4.2 % (0.0-3.0); HEMATOCRIT 37.6 % (42.0-52.0); HEMOGLOBIN 12.7 g/dl (14.0-18.0); IMMATURE GRANULOCYTE % 0.3 % (0-3.0); LYMPH # 1.7 10^3/uL (1.5-4.5); LYMPH % 22.1 % (24.0-44.0); MEAN CORPUSCULAR HEMOGLOBIN 26.8 pg (27.0-33.0); MEAN CORPUSCULAR HGB CONC 33.8 g/dl (32.0-36.5); MEAN CORPUSCULAR VOLUME 79.5 fl (80.0-96.0); MONO # 1.1 10^3/uL (0.0-0.8); MONO % 13.8 % (0.0-5.0); NEUTROPHILS # 4.6 10^3/uL (1.8-7.7); NEUTROPHILS % 58.8 % (36.0-66.0); PLATELET COUNT, AUTOMATED 304 10^3/uL (150-450); RED BLOOD COUNT 4.73 10^6/uL (4.30-6.10); RED CELL DISTRIBUTION WIDTH 13.1 % (11.5-14.5); WHITE BLOOD COUNT 7.8 10^3/uL (4.0-10.0)
[2017-08-14 07:03] LABS: ANION GAP 6 MEQ/L (8-16); BLOOD UREA NITROGEN 16 MG/DL (7-18); C REACTIVE PROTEIN QUANTITATIV 8.18 MG/DL (0.00-0.30); CALCIUM LEVEL 8.6 MG/DL (8.5-10.1); CARBON DIOXIDE LEVEL 28 MEQ/L (21-32); CHLORIDE LEVEL 105 MEQ/L (98-107); CREATININE FOR GFR 0.91 MG/DL (0.70-1.30); GLOMERULAR FILTRATION RATE > 60.0 (>60); GLUCOSE, FASTING 174 MG/DL (70-100); POTASSIUM SERUM 3.9 MEQ/L (3.5-5.1); SODIUM LEVEL 139 MEQ/L (136-145)
[2017-08-14] MEDS: HumaLOG INSULIN (NovoLOG) PER UNIT SC (08:26)
[2017-08-14] MEDS: ENOXAPARIN 40 MG/0.4 ML SYRINGE (J1650) SC (08:26)
[2017-08-14] MEDS: OMEPRAZOLE 20 MG CAP PO (08:27)
[2017-08-14] MEDS: LISINOPRIL 20 MG TAB PO (08:31)
[2017-08-14] MEDS: SERTRALINE HCL 50 MG TAB PO (08:31)
[2017-08-14] MEDS: LR 1,000 ML IV (08:32)
[2017-08-14] MEDS: PERCOCET 5MG/325MG TAB PO (08:34)
[2017-08-14] MEDS: metFORMIN (GLUCOPHAGE) 1000 MG TABLET PO ×2 (14:37→17:12)
[2017-08-14 15:46] LABS: VANCOMYCIN LEVEL TROUGH 15.2 UG/ML (10.0-20.0)
[2017-08-14] MEDS: ATORVASTATIN 20 MG TAB PO (21:29)
[2017-08-15] MEDS: VANCOMYCIN HCL 1,000 MG, VIAL MATE ADAPTER 1 EACH in D5W 250 ML IV ×3 (00:40→17:37)
[2017-08-15 06:50] LABS: BASO # 0.1 10^3/uL (0.0-0.2); EOS # 0.4 10^3/uL (0.0-0.50); EOS % 5.2 % (0.0-3.0); HEMATOCRIT 38.5 % (42.0-52.0); IMMATURE GRANULOCYTE % 0.8 % (0-3.0); LYMPH # 1.9 10^3/uL (1.5-4.5); LYMPH % 26.6 % (24.0-44.0); MEAN CORPUSCULAR HEMOGLOBIN 27.1 pg (27.0-33.0); MEAN CORPUSCULAR HGB CONC 33.8 g/dl (32.0-36.5); MEAN CORPUSCULAR VOLUME 80.2 fl (80.0-96.0); MONO # 0.9 10^3/uL (0.0-0.8); MONO % 12.5 % (0.0-5.0); NEUTROPHILS # 3.9 10^3/uL (1.8-7.7); NEUTROPHILS % 53.9 % (36.0-66.0); PLATELET COUNT, AUTOMATED 310 10^3/uL (150-450); RED CELL DISTRIBUTION WIDTH 12.9 % (11.5-14.5); WHITE BLOOD COUNT 7.2 10^3/uL (4.0-10.0)
[2017-08-15 07:07] LABS: ANION GAP 7 MEQ/L (8-16); BLOOD UREA NITROGEN 11 MG/DL (7-18); CALCIUM LEVEL 8.6 MG/DL (8.5-10.1); CARBON DIOXIDE LEVEL 28 MEQ/L (21-32); CHLORIDE LEVEL 104 MEQ/L (98-107); GLOMERULAR FILTRATION RATE > 60.0 (>60); GLUCOSE, FASTING 179 MG/DL (70-100); SODIUM LEVEL 139 MEQ/L (136-145)
[2017-08-15] MEDS: LISINOPRIL 40 MG TAB PO (08:52)
[2017-08-15] MEDS: ENOXAPARIN 40 MG/0.4 ML SYRINGE (J1650) SC (08:52)
[2017-08-15] MEDS: OMEPRAZOLE 20 MG CAP PO (08:54)
[2017-08-15] MEDS: amLODIPine 5 MG TAB PO (08:54)
[2017-08-15] MEDS: SERTRALINE HCL 50 MG TAB PO (08:54)
[2017-08-15] MEDS: metFORMIN (GLUCOPHAGE) 1000 MG TABLET PO ×2 (08:54→17:36)
[2017-08-15] MEDS: PERCOCET 5MG/325MG TAB PO ×2 (17:36→19:10)
[2017-08-15 19:34] LABS: BEDSIDE GLUCOSE 218 MG/DL (70-105)
[2017-08-15] MEDS: diphenhydrAMINE 25 MG CAP PO (21:08)
[2017-08-15] MEDS: ATORVASTATIN 20 MG TAB PO (21:08)
[2017-08-16] MEDS: VANCOMYCIN HCL 1,000 MG, VIAL MATE ADAPTER 1 EACH in D5W 250 ML IV ×2 (00:07→08:18)
[2017-08-16 07:04] LABS: BASO # 0.1 10^3/uL (0.0-0.2); BASO % 0.9 % (0.0-1.0); EOS # 0.3 10^3/uL (0.0-0.50); EOS % 4.3 % (0.0-3.0); HEMATOCRIT 41.2 % (42.0-52.0); HEMOGLOBIN 14.1 g/dl (14.0-18.0); LYMPH # 1.9 10^3/uL (1.5-4.5); LYMPH % 25.2 % (24.0-44.0); MEAN CORPUSCULAR HEMOGLOBIN 26.9 pg (27.0-33.0); MEAN CORPUSCULAR HGB CONC 34.2 g/dl (32.0-36.5); MEAN CORPUSCULAR VOLUME 78.5 fl (80.0-96.0); MONO # 0.9 10^3/uL (0.0-0.8); MONO % 12.1 % (0.0-5.0); NEUTROPHILS # 4.3 10^3/uL (1.8-7.7); NEUTROPHILS % 56.5 % (36.0-66.0); PLATELET COUNT, AUTOMATED 331 10^3/uL (150-450); RED BLOOD COUNT 5.25 10^6/uL (4.30-6.10); RED CELL DISTRIBUTION WIDTH 13.1 % (11.5-14.5); WHITE BLOOD COUNT 7.6 10^3/uL (4.0-10.0)
[2017-08-16 07:19] LABS: ANION GAP 6 MEQ/L (8-16); BLOOD UREA NITROGEN 11 MG/DL (7-18); C REACTIVE PROTEIN QUANTITATIV 3.13 MG/DL (0.00-0.30); CALCIUM LEVEL 8.9 MG/DL (8.5-10.1); CARBON DIOXIDE LEVEL 30 MEQ/L (21-32); CHLORIDE LEVEL 102 MEQ/L (98-107); CREATININE FOR GFR 0.89 MG/DL (0.70-1.30); GLOMERULAR FILTRATION RATE > 60.0 (>60); GLUCOSE, FASTING 156 MG/DL (70-100); POTASSIUM SERUM 4.3 MEQ/L (3.5-5.1); SODIUM LEVEL 138 MEQ/L (136-145)
[2017-08-16] MEDS: ENOXAPARIN 40 MG/0.4 ML SYRINGE (J1650) SC (08:18)
[2017-08-16] MEDS: SERTRALINE HCL 50 MG TAB PO (08:18)
[2017-08-16] MEDS: LISINOPRIL 40 MG TAB PO (08:18)
[2017-08-16] MEDS: amLODIPine 5 MG TAB PO (08:20)
[2017-08-16] MEDS: OMEPRAZOLE 20 MG CAP PO (08:20)
[2017-08-16] MEDS: metFORMIN (GLUCOPHAGE) 1000 MG TABLET PO (08:21)
== END 2017-08-16 12:10 | disposition home or self-care (01) | DRG 364 ==
LOC: M ED 01:01 → M ED INP 09:10 → M PED 14:36
PROC: 0LDW0ZZ Extraction of Left Foot Tendon, Open Approach (ICD-10-PCS; principal; 2017-08-13 12:37)
DX: E11.621 Type 2 diabetes mellitus with foot ulcer (principal); E11.40 Type 2 diabetes mellitus with diabetic neuropathy, unspecified; E78.5 Hyperlipidemia, unspecified; I10 Essential (primary) hypertension; L03.032 Cellulitis of left toe; B95.1 Streptococcus, group B, as the cause of diseases classified elsewhere; B95.61 Methicillin susceptible Staphylococcus aureus infection as the cause of diseases classified elsewhere; F32.9 Major depressive disorder, single episode, unspecified; E87.6 Hypokalemia; Z88.0 Allergy status to penicillin; Z79.84 Long term (current) use of oral hypoglycemic drugs; E11.319 Type 2 diabetes mellitus with unspecified diabetic retinopathy without macular edema; Z79.899 Other long term (current) drug therapy; L97.529 Non-pressure chronic ulcer of other part of left foot with unspecified severity

== ENCOUNTER 2017-09-17 19:41 | Emergency (ER) | payer BC ==
[2017-09-17 22:22] LABS: BASO # 0.1 10^3/uL (0.0-0.2); BASO % 1.3 % (0.0-1.0); EOS # 0.4 10^3/uL (0.0-0.50); EOS % 4.7 % (0.0-3.0); HEMATOCRIT 45.9 % (42.0-52.0); HEMOGLOBIN 15.4 g/dl (14.0-18.0); IMMATURE GRANULOCYTE % 0.2 % (0-3.0); LYMPH # 2.4 10^3/uL (1.5-4.5); LYMPH % 28.1 % (24.0-44.0); MEAN CORPUSCULAR HGB CONC 33.6 g/dl (32.0-36.5); MEAN CORPUSCULAR VOLUME 80.5 fl (80.0-96.0); MONO % 11.2 % (0.0-5.0); NEUTROPHILS # 4.7 10^3/uL (1.8-7.7); NEUTROPHILS % 54.5 % (36.0-66.0); PLATELET COUNT, AUTOMATED 259 10^3/uL (150-450); RED CELL DISTRIBUTION WIDTH 14.2 % (11.5-14.5); WHITE BLOOD COUNT 8.7 10^3/uL (4.0-10.0)
[2017-09-17] MEDS: PIPERACILLIN/TAZOBACTAM SOD 4.5 GM in D5W MINI-BAG PLUS 50 ML IV (22:46)
[2017-09-17] MEDS: NS 1,000 ML IV (22:46)
[2017-09-17 22:48] LABS: ANION GAP 7 MEQ/L (8-16); BLOOD UREA NITROGEN 15 MG/DL (7-18); CALCIUM LEVEL 9.1 MG/DL (8.5-10.1); CARBON DIOXIDE LEVEL 26 MEQ/L (21-32); CHLORIDE LEVEL 106 MEQ/L (98-107); CREATININE FOR GFR 1.04 MG/DL (0.70-1.30); GLOMERULAR FILTRATION RATE > 60.0 (>60); GLUCOSE, FASTING 154 MG/DL (70-100); SODIUM LEVEL 139 MEQ/L (136-145)
[2017-09-17 22:56] LABS: ERYTHROCYTE SEDIMENTATION RATE 9 mm/hr (0-15)
== END 2017-09-18 00:04 | disposition home or self-care (01) ==
LOC: M ED 09-18 00:04
DX: T81.4XXA Infection following a procedure, initial encounter (principal); Y92.9 Unspecified place or not applicable; Y93.9 Activity, unspecified; E11.9 Type 2 diabetes mellitus without complications; I10 Essential (primary) hypertension; K21.9 Gastro-esophageal reflux disease without esophagitis; Z79.84 Long term (current) use of oral hypoglycemic drugs; Z79.899 Other long term (current) drug therapy; Z88.0 Allergy status to penicillin
CPT/HCPCS: J2543

== ENCOUNTER → 2017-09-27 | Outpatient (REF) | payer BC | LOC: M LAB REF 17:33 | DX: L03.116 Cellulitis of left lower limb (principal); L89.892 Pressure ulcer of other site, stage 2; E11.59 Type 2 diabetes mellitus with other circulatory complications | CPT/HCPCS: 87205 ==

== ENCOUNTER → 2017-10-19 | Outpatient (CLI) | payer BC ==
[~2017-10-19] MED LIST: PROHANCE 279.3MG/ML 15ML VIAL (A9576) As Ordered; PROHANCE 279.3MG/ML 5ML VIAL (A9576) As Ordered
== END ==
LOC: M RAD 12:32
DX: M25.475 Effusion, left foot (principal); E11.621 Type 2 diabetes mellitus with foot ulcer; M86.172 Other acute osteomyelitis, left ankle and foot
CPT/HCPCS: A9576

== ENCOUNTER 2017-10-27 09:29 | Inpatient (IN) | payer BC ==
[2017-10-27] MEDS ORDERED: LIDOCAINE 1% MDV 20ML VIAL SQ (10:00)
[2017-10-27] MEDS ORDERED: LIDOCAINE 1% MDV 20ML VIAL As Ordered (10:17)
[2017-10-27] MEDS ORDERED: VANCOMYCIN 1000 MG/20 ML VIAL (J3370) As Ordered (10:17)
[2017-10-27] MEDS ORDERED: BUPIVACAINE HCL 0.5% 10 ML VIAL As Ordered (10:17)
[2017-10-27] MEDS: LR 1,000 ML IV ×2 (10:42→13:15)
[2017-10-27] MEDS: VANCOMYCIN HCL 1,000 MG, VIAL MATE ADAPTER 1 EACH in D5W 250 ML IV ×2 (10:42→18:14)
[2017-10-27 10:51] LABS: BEDSIDE GLUCOSE 167 MG/DL (70-105)
[2017-10-27] MEDS ORDERED: LIDOCAINE 2% INJ 100 MG/5 ML SDV (FOR ANES.) As Ordered (10:58)
[2017-10-27] MEDS ORDERED: PROPOFOL 200 MG/20 ML VIAL As Ordered ×2 (10:58→12:25)
[2017-10-27] MEDS ORDERED: fentaNYL 100 MCG/2 ML INJECTION (J3010) As Ordered (10:58)
[2017-10-27] MEDS ORDERED: MIDAZOLAM INJ 2 MG/2 ML VIAL (J2250) As Ordered (10:58)
[2017-10-27] MEDS ORDERED: PHENYLephrine HCL 500 MCG/5 ML (100MCG/ML) SYRINGE (J2370) As Ordered (12:01)
[2017-10-27] MEDS ORDERED: ONDANSETRON 4MG/2ML VIAL (J2405) As Ordered (12:13)
[2017-10-27] MEDS ORDERED: KETOROLAC 60 MG/2 ML VIAL (J1885) As Ordered (12:13)
[2017-10-27] MEDS ORDERED: ePHEDrine SULFATE 25 MG/5 ML(5MG/ML) SYRINGE As Ordered (12:39)
[2017-10-27] MEDS ORDERED: fentaNYL 100 MCG/2 ML INJECTION (J3010) IV (13:15)
[2017-10-27] MEDS ORDERED: ONDANSETRON 4MG/2ML VIAL (J2405) IV ×2 (13:15→15:45)
[2017-10-27] MEDS ORDERED: PERCOCET 5MG/325MG TAB PO (13:30)
[2017-10-27] MEDS ORDERED: MORPHINE 4 MG/ML 1ML VIAL/SYRINGE (J2270) IV (13:30)
[2017-10-27] MEDS: PERCOCET 5MG/325MG TAB PO ×2 (13:35→19:49)
[2017-10-27] MEDS ORDERED: DEXTROSE 50% 50 ML SYRINGE IV (15:45)
[2017-10-27] MEDS ORDERED: GLUCOSE 4 GM CHEW TABLET PO (15:45)
[2017-10-27] MEDS ORDERED: ONDANSETRON 4 MG TAB (S0181) PO (15:45)
[2017-10-27] MEDS ORDERED: GLUCAGON FOR INJ 1 MG VIAL (J1610) SC (15:45)
[2017-10-27 16:47] LABS: BEDSIDE GLUCOSE 198 MG/DL (70-105)
[2017-10-27] MEDS: HumaLOG INSULIN (NovoLOG) PER UNIT SC ×2 (18:14→21:48)
[2017-10-27 21:01] LABS: BEDSIDE GLUCOSE 260 MG/DL (70-105)
[2017-10-27] MEDS: ATORVASTATIN 20 MG TAB PO (21:47)
[2017-10-28] MEDS: VANCOMYCIN HCL 1,000 MG, VIAL MATE ADAPTER 1 EACH in D5W 250 ML IV ×3 (02:39→18:17)
[2017-10-28 05:48] LABS: BASO # 0.1 10^3/uL (0.0-0.2); EOS # 0.3 10^3/uL (0.0-0.50); EOS % 4.5 % (0.0-3.0); HEMATOCRIT 37.8 % (42.0-52.0); HEMOGLOBIN 12.3 g/dl (13.5-17.5); IMMATURE GRANULOCYTE % 0.3 % (0-3.0); LYMPH # 2.5 10^3/uL (1.5-4.5); LYMPH % 36.3 % (24.0-44.0); MEAN CORPUSCULAR HEMOGLOBIN 26.5 pg (27.0-33.0); MEAN CORPUSCULAR HGB CONC 32.5 g/dl (32.0-36.5); MEAN CORPUSCULAR VOLUME 81.5 fl (80.0-96.0); MONO # 0.8 10^3/uL (0.0-0.8); MONO % 11.6 % (0.0-5.0); NEUTROPHILS # 3.2 10^3/uL (1.8-7.7); NEUTROPHILS % 46.3 % (36.0-66.0); PLATELET COUNT, AUTOMATED 229 10^3/uL (150-450); RED BLOOD COUNT 4.64 10^6/uL (4.30-6.10); RED CELL DISTRIBUTION WIDTH 14.6 % (11.5-14.5); WHITE BLOOD COUNT 6.9 10^3/uL (4.0-10.0)
[2017-10-28 06:03] LABS: ANION GAP 5 MEQ/L (8-16); BLOOD UREA NITROGEN 17 MG/DL (7-18); CALCIUM LEVEL 8.1 MG/DL (8.5-10.1); CARBON DIOXIDE LEVEL 25 MEQ/L (21-32); CHLORIDE LEVEL 108 MEQ/L (98-107); CREATININE FOR GFR 1.22 MG/DL (0.70-1.30); GLOMERULAR FILTRATION RATE > 60.0 (>60); GLUCOSE, FASTING 197 MG/DL (70-100); MAGNESIUM LEVEL 2.2 MG/DL (1.8-2.4); POTASSIUM SERUM 4.5 MEQ/L (3.5-5.1); SODIUM LEVEL 138 MEQ/L (136-145)
[2017-10-28] MEDS: PERCOCET 5MG/325MG TAB PO ×3 (06:51→21:51)
[2017-10-28] MEDS: LISINOPRIL 20 MG TAB PO (09:00)
[2017-10-28] MEDS: HumaLOG INSULIN (NovoLOG) PER UNIT SC ×4 (09:00→21:50)
[2017-10-28] MEDS: SERTRALINE HCL 50 MG TAB PO (09:00)
[2017-10-28] MEDS: OMEPRAZOLE 20 MG CAP PO (09:01)
[2017-10-28 12:53] LABS: BEDSIDE GLUCOSE 252 MG/DL (70-105)
[2017-10-28 17:34] LABS: BEDSIDE GLUCOSE 250 MG/DL (70-105)
[2017-10-28 19:01] LABS: VANCOMYCIN LEVEL TROUGH 15.8 UG/ML (10.0-20.0)
[2017-10-28 21:24] LABS: BEDSIDE GLUCOSE 305 MG/DL (70-105)
[2017-10-28] MEDS: ATORVASTATIN 20 MG TAB PO (21:50)
[2017-10-29] MEDS: VANCOMYCIN HCL 1,000 MG, VIAL MATE ADAPTER 1 EACH in D5W 250 ML IV ×2 (03:27→10:30)
[2017-10-29 05:37] LABS: BASO # 0.1 10^3/uL (0.0-0.2); BASO % 1.1 % (0.0-1.0); EOS # 0.3 10^3/uL (0.0-0.50); EOS % 5.2 % (0.0-3.0); HEMATOCRIT 37.3 % (42.0-52.0); HEMOGLOBIN 12.6 g/dl (13.5-17.5); IMMATURE GRANULOCYTE % 0.4 % (0-3.0); LYMPH # 2.2 10^3/uL (1.5-4.5); LYMPH % 38.8 % (24.0-44.0); MEAN CORPUSCULAR HEMOGLOBIN 27.1 pg (27.0-33.0); MEAN CORPUSCULAR HGB CONC 33.8 g/dl (32.0-36.5); MEAN CORPUSCULAR VOLUME 80.2 fl (80.0-96.0); MONO # 0.8 10^3/uL (0.0-0.8); MONO % 14.8 % (0.0-5.0); NEUTROPHILS # 2.2 10^3/uL (1.8-7.7); NEUTROPHILS % 39.7 % (36.0-66.0); PLATELET COUNT, AUTOMATED 243 10^3/uL (150-450); RED BLOOD COUNT 4.65 10^6/uL (4.30-6.10); RED CELL DISTRIBUTION WIDTH 14.4 % (11.5-14.5); WHITE BLOOD COUNT 5.6 10^3/uL (4.0-10.0)
[2017-10-29] MEDS: PERCOCET 5MG/325MG TAB PO (05:49)
[2017-10-29 05:55] LABS: ANION GAP 5 MEQ/L (8-16); BLOOD UREA NITROGEN 13 MG/DL (7-18); C REACTIVE PROTEIN QUANTITATIV 1.16 MG/DL (0.00-0.30); CALCIUM LEVEL 8.4 MG/DL (8.5-10.1); CARBON DIOXIDE LEVEL 27 MEQ/L (21-32); CHLORIDE LEVEL 108 MEQ/L (98-107); CREATININE FOR GFR 1.07 MG/DL (0.70-1.30); GLOMERULAR FILTRATION RATE > 60.0 (>60); GLUCOSE, FASTING 193 MG/DL (70-100); MAGNESIUM LEVEL 2.1 MG/DL (1.8-2.4); POTASSIUM SERUM 4.9 MEQ/L (3.5-5.1); SODIUM LEVEL 140 MEQ/L (136-145)
[2017-10-29] MEDS: HumaLOG INSULIN (NovoLOG) PER UNIT SC ×2 (07:30→12:00)
[2017-10-29] MEDS: OMEPRAZOLE 20 MG CAP PO (07:58)
[2017-10-29] MEDS: SERTRALINE HCL 50 MG TAB PO (07:58)
[2017-10-29] MEDS: LISINOPRIL 20 MG TAB PO (07:58)
[2017-10-29] MEDS: LEVEMIR (INSULIN DETEMIR) 1 UNITS/0.01ML SC (07:59)
[2017-10-29 11:45] LABS: BEDSIDE GLUCOSE 276 MG/DL (70-105)
== END 2017-10-29 17:39 | disposition home or self-care (01) | DRG 305 ==
LOC: M OR 09:29 → M MS5PR 10-28 01:12 → M MSPAV 13:52
PROVIDERS: Podiatrist Foot & Ankle Surgery
PROC: 0Y6N0Z9 Detachment at Left Foot, Partial 1st Ray, Open Approach (ICD-10-PCS; principal; 2017-10-27 11:20)
PROC: 3E0U029 Introduction of Other Anti-infective into Joints, Open Approach (ICD-10-PCS; 2017-10-27 11:20)
DX: E11.69 Type 2 diabetes mellitus with other specified complication (principal); M86.172 Other acute osteomyelitis, left ankle and foot; I10 Essential (primary) hypertension; E78.5 Hyperlipidemia, unspecified; F39 Unspecified mood [affective] disorder; Z79.84 Long term (current) use of oral hypoglycemic drugs; Z88.0 Allergy status to penicillin; L97.529 Non-pressure chronic ulcer of other part of left foot with unspecified severity; E11.621 Type 2 diabetes mellitus with foot ulcer; Z79.899 Other long term (current) drug therapy

== ENCOUNTER 2017-12-30 08:28 | Emergency (ER) | payer BC | END 2017-12-30 09:25 | disposition home or self-care (01) | LOC: M ED 08:28 | DX: S90.416A Abrasion, unspecified lesser toe(s), initial encounter (principal); X58.XXXA Exposure to other specified factors, initial encounter; Y92.89 Other specified places as the place of occurrence of the external cause; E11.40 Type 2 diabetes mellitus with diabetic neuropathy, unspecified; I10 Essential (primary) hypertension; K21.9 Gastro-esophageal reflux disease without esophagitis; F32.9 Major depressive disorder, single episode, unspecified; Z88.0 Allergy status to penicillin; Z79.899 Other long term (current) drug therapy; Z79.84 Long term (current) use of oral hypoglycemic drugs; Z89.422 Acquired absence of other left toe(s) | CPT/HCPCS: 99282 ==

== ENCOUNTER 2018-02-12 18:54 | Emergency (ER) | payer BC ==
[2018-02-12] MEDS: OXYCODONE/APAP 5MG/325MG(BULK FOR ED) 1 TABLET PO (22:50)
== END 2018-02-12 22:59 | disposition home or self-care (01) ==
LOC: M ED 18:54
DX: S92.342A Displaced fracture of fourth metatarsal bone, left foot, initial encounter for closed fracture (principal); S92.352A Displaced fracture of fifth metatarsal bone, left foot, initial encounter for closed fracture; X58.XXXA Exposure to other specified factors, initial encounter; Y92.89 Other specified places as the place of occurrence of the external cause; I10 Essential (primary) hypertension; E11.40 Type 2 diabetes mellitus with diabetic neuropathy, unspecified; E78.5 Hyperlipidemia, unspecified; K21.9 Gastro-esophageal reflux disease without esophagitis; Z79.899 Other long term (current) drug therapy; Z88.0 Allergy status to penicillin
CPT/HCPCS: 73630

== ENCOUNTER 2018-04-29 00:07 | Emergency (ER) | payer BC | END 2018-04-29 04:05 | disposition home or self-care (01) | LOC: M ED 00:07 | DX: S90.822A Blister (nonthermal), left foot, initial encounter (principal); X58.XXXA Exposure to other specified factors, initial encounter; Y92.9 Unspecified place or not applicable; Y93.9 Activity, unspecified; Y99.0 Civilian activity done for income or pay; E11.9 Type 2 diabetes mellitus without complications; M86.172 Other acute osteomyelitis, left ankle and foot; Z89.412 Acquired absence of left great toe; Z79.84 Long term (current) use of oral hypoglycemic drugs; Z79.899 Other long term (current) drug therapy; Z88.0 Allergy status to penicillin | CPT/HCPCS: 99283 ==

== ENCOUNTER 2018-06-12 09:02 | Emergency (ER) | payer BC ==
[2018-06-12 10:01] LABS: BASO # 0.1 10^3/uL (0.0-0.2); BASO % 0.8 % (0.0-1.0); EOS # 0.3 10^3/uL (0.0-0.50); EOS % 4.1 % (0.0-3.0); HEMATOCRIT 44.2 % (42.0-52.0); IMMATURE GRANULOCYTE % 0.3 % (0-3.0); LYMPH # 2.2 10^3/uL (1.5-4.5); LYMPH % 29.1 % (24.0-44.0); MEAN CORPUSCULAR HEMOGLOBIN 28.5 pg (27.0-33.0); MEAN CORPUSCULAR HGB CONC 33.9 g/dl (32.0-36.5); MONO # 0.9 10^3/uL (0.0-0.8); MONO % 11.8 % (0.0-5.0); NEUTROPHILS % 53.9 % (36.0-66.0); PLATELET COUNT, AUTOMATED 264 10^3/uL (150-450); RED BLOOD COUNT 5.26 10^6/uL (4.30-6.10); RED CELL DISTRIBUTION WIDTH 13.2 % (11.5-14.5); WHITE BLOOD COUNT 7.4 10^3/uL (4.0-10.0)
[2018-06-12 10:21] LABS: ANION GAP 8 MEQ/L (8-16); BLOOD UREA NITROGEN 18 MG/DL (7-18); C REACTIVE PROTEIN QUANTITATIV 3.52 MG/DL (0.00-0.30); CALCIUM LEVEL 8.7 MG/DL (8.5-10.1); CARBON DIOXIDE LEVEL 27 MEQ/L (21-32); CHLORIDE LEVEL 104 MEQ/L (98-107); ERYTHROCYTE SEDIMENTATION RATE 16 mm/hr (0-15); GLOMERULAR FILTRATION RATE > 60.0 (>60); GLUCOSE, FASTING 170 MG/DL (70-100); POTASSIUM SERUM 4.3 MEQ/L (3.5-5.1); SODIUM LEVEL 139 MEQ/L (136-145)
== END 2018-06-12 11:11 | disposition home or self-care (01) ==
LOC: M ED 09:02
DX: E11.40 Type 2 diabetes mellitus with diabetic neuropathy, unspecified (principal); I10 Essential (primary) hypertension; S92.322A Displaced fracture of second metatarsal bone, left foot, initial encounter for closed fracture; S92.332A Displaced fracture of third metatarsal bone, left foot, initial encounter for closed fracture; S92.342A Displaced fracture of fourth metatarsal bone, left foot, initial encounter for closed fracture; S92.352A Displaced fracture of fifth metatarsal bone, left foot, initial encounter for closed fracture; X58.XXXA Exposure to other specified factors, initial encounter; Y92.89 Other specified places as the place of occurrence of the external cause; E78.5 Hyperlipidemia, unspecified; K21.9 Gastro-esophageal reflux disease without esophagitis; G47.30 Sleep apnea, unspecified; F33.9 Major depressive disorder, recurrent, unspecified; Z79.899 Other long term (current) drug therapy; Z89.422 Acquired absence of other left toe(s); Z88.0 Allergy status to penicillin
CPT/HCPCS: 73630

== ENCOUNTER 2019-07-17 23:15 | Emergency (ER) | payer BC, OTHER, SELFPAY ==
[~2019-07-17] VITALS: Ht 172.7 cm; Wt 95.6 kg
[~2019-07-17 23:15] MED LIST changes: +ACET-716 PO; +ATOR1TAB21 PO; +BACT800T5 PO; +DOXY-350 PO; +DOXY100C PO; +GLIP10TA6 PO; +IBUP-1022 PO; +IBUP1TAB7 PO; +IBUP80TA PO; +INVO1TAB2 PO; +KEFL500C17 PO; +LISI-538 PO; +OMEP1CAP73; +OMEP40CA97 PO; +OXYC1TAB23 PO; +PERC5TAB12 PO; +PERCOCET PO; -PROHANCE 279.3MG/ML 15ML VIAL (A9576) As Ordered; -PROHANCE 279.3MG/ML 5ML VIAL (A9576) As Ordered; +ZOFR4TAB14 PO; +ZOLO50TA PO
[2019-07-18 00:24] VITALS: BP 133/86
--- NOTE | 2019-07-18 01:16 | REP ---
Clinical: Pain and swelling. Technique: AP, lateral, bilateral oblique views of the left foot. 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 No acute fracture dislocation. No acute osseous changes. No subcutaneous emphysema or foreign body. Impression: Soft-tissue swelling. Chronic osseous changes. Electronically Signed by Steve Buckner MD 07/18/2019 01:07 A
== END 2019-07-18 01:29 | disposition home or self-care (01) ==
LOC: M ED 23:15
DX: E11.21 Type 2 diabetes mellitus with diabetic nephropathy (principal); I10 Essential (primary) hypertension; E78.5 Hyperlipidemia, unspecified; K21.9 Gastro-esophageal reflux disease without esophagitis; Z79.899 Other long term (current) drug therapy; Z88.0 Allergy status to penicillin

== ENCOUNTER → 2019-10-21 | Outpatient (CLI) | payer OTHER ==
[~2019-10-21] MED LIST changes: +FARX1TAB3 PO; +HYDR-3713 PO; +METF10004 PO; -OMEP1CAP73; +OMEP1CAP73 PO; +TRUL10IN SC; +vitamin d PO
== END ==
LOC: M LABSMTC 10:15
PROVIDERS: ATTEND Family Medicine
DX: Z01.818 Encounter for other preprocedural examination (principal); Z11.59 Encounter for screening for other viral diseases

== ENCOUNTER 2019-10-23 11:30 | Day surgery (SDC) | payer OTHER ==
[~2019-10-23] VITALS: Ht 172.7 cm; Wt 95.3 kg
[~2019-10-23 11:30] MED LIST changes: +CLINDAMYCIN 600 MG in IV 1 EA IV ONE; -HYDR-3713 PO; +LIDOCAINE 1% MDV 20ML VIAL SQ PRN; +LR 1,000 ML IV ONE
[2019-10-23] MEDS ORDERED: ONDANSETRON 4MG/2ML VIAL As Ordered ONE (11:49)
[2019-10-23] MEDS ORDERED: dexameTHASONE 4 MG/ML 1ML VIAL (J1100 PER 1MG) As Ordered ONE (11:49)
[2019-10-23] MEDS ORDERED: MIDAZOLAM INJ 2MG/2ML VIAL (J2250 PER 1MG) As Ordered ONE (11:49)
[2019-10-23] MEDS ORDERED: fentaNYL 100 MCG/2 ML INJECTION (J3010) As Ordered ONE (11:49)
[2019-10-23] MEDS ORDERED: LIDOCAINE 2% 100MG/5ML SDV (FOR ANES.) As Ordered ONE (11:49)
[2019-10-23] MEDS ORDERED: ROCURONIUM BROMIDE 50 MG/5 ML VIAL As Ordered ONE (11:49)
[2019-10-23] MEDS ORDERED: propofoL 200 MG/20 ML VIAL As Ordered ONE ×2 (11:49→12:47)
[2019-10-23] MEDS ORDERED: PHENYLephrine HCL 500 MCG/5 ML (100MCG/ML) SYRINGE (J2370) As Ordered ONE (11:50)
[2019-10-23] MEDS ORDERED: ePHEDrine SULFATE 25 MG/5 ML(5MG/ML) SYRINGE As Ordered ONE (11:50)
[2019-10-23] MEDS ORDERED: LIDOCAINE 1% SDV 30ML VIAL As Ordered ONE (11:52)
[2019-10-23] MEDS ORDERED: BUPIVACAINE HCL 0.5% 30 ML VIAL As Ordered ONE (11:52)
[2019-10-23] MEDS ORDERED: HumaLOG INSULIN (NovoLOG) PER UNIT As Ordered ONE (12:54)
[2019-10-23] MEDS ORDERED: HumaLOG INSULIN (NovoLOG) PER UNIT SC ONE (13:00)
[2019-10-23] MEDS ORDERED: HYDR-3713 PO (13:42)
[2019-10-23] MEDS ORDERED: PERCOCET 5MG/325MG TAB PO PRN (14:00)
[2019-10-23] MEDS ORDERED: fentaNYL 100 MCG/2 ML INJECTION (J3010) IV PRN (14:00)
[2019-10-23] MEDS ORDERED: METOCLOPRAMIDE INJ 10MG/2ML VIAL (J2765 PER 1) IV PRN (14:00)
[2019-10-23] MEDS ORDERED: LR 1,000 ML IV SCH (14:00)
[2019-10-23] MEDS ORDERED: ONDANSETRON 4MG/2ML VIAL IV PRN (14:00)
[2019-10-23 15:10] VITALS: BP 121/75
--- NOTE | 2019-10-23 19:25 | RO ---
DATE OF PROCEDURE: 10/23/2019 PREPROCEDURE DIAGNOSIS: Left foot diabetic ulceration and 3rd and 4th metatarsal deformities. POSTPROCEDURE DIAGNOSIS: Left foot diabetic ulceration and 3rd and 4th metatarsal deformities. PROCEDURE: Left foot 3rd and 4th metatarsal head resections. SURGEON: Wei Abdullahi DPM STONER OUT: None. ANESTHESIA: Monitored anesthesia care with preoperative injection of 15 mL of a 1:1 mixture of 1% lidocaine plain and 0.5% Marcaine plain. ESTIMATED BLOOD LOSS: Minimal. MATERIALS: #3-0 nylon. SPECIMEN: Left 3rd and 4th metatarsal head, as well as clean margin left 3rd metatarsal. COMPLICATIONS: None. CONDITION: Stable. José Miguel Terrell is a 38-year-old diabetic male who presents to [facility] with complaints of diabetic ulcer. He has been treated with offloading and antibiotics without resolution, with worsening of the wound recently over the last week. Decision made to bring him to the operating room to remove the deformed metatarsal bone, which is the source of the ulceration. The patient's side and site were identified and marked in the preoperative holding area. Consent was reviewed and obtained. All risks, complications, and alternatives to the procedure were explained to the patient in detail and all questions were answered. DESCRIPTION OF PROCEDURE: The patient was brought to the operating room, placed on the operating room table in supine position, monitored anesthesia care was delivered by the anesthesia team. Preoperative injection of 15 mL of a 1:1 mixture of 1% lidocaine plain and 0.5% Marcaine plain were injected into the left foot. The left foot was prepped and draped in a normal sterile fashion. A tourniquet was applied to the left ankle and inflated at 225 mmHg. Dorsal incision was made between the 3rd and 4th toes and carried through with a #15 blade. Dissection was carried out until the 3rd and 4th metatarsal heads were identified. The 3rd metatarsal head was notably deformed with some erosive changes. The 4th metatarsal appeared in good condition, although it was relatively plantar flexed from a previous fracture. The soft tissue attachments were released using #15 blade, as well as McGlamry elevator. Using a sagittal saw, the metatarsal heads were resected. These were sent for pathology. The proximal bone appeared in good condition, and a small portion of the metatarsal neck was resected as a clean margin from the 3rd metatarsal bone. Following this, the site was irrigated with normal saline. The wound was inspected. There was no purulence or necrotic tissue at all within the wound or incision, and the incision was closed using #3-0 nylon. Sterile dressings were applied. Tourniquet was deflated. The patient was brought to the post-anesthesia care unit (PACU) with vital signs stable, neurovascular status intact. He will be partial weightbearing and followup in the office in 3 days.
== END 2019-10-23 14:20 | disposition home or self-care (01) ==
LOC: M SDC 11:30
PROVIDERS: ATTEND Podiatrist Foot & Ankle Surgery
DX: E11.621 Type 2 diabetes mellitus with foot ulcer (principal); M20.5X2 Other deformities of toe(s) (acquired), left foot; I10 Essential (primary) hypertension; E78.5 Hyperlipidemia, unspecified; K21.9 Gastro-esophageal reflux disease without esophagitis; Z79.84 Long term (current) use of oral hypoglycemic drugs; Z79.899 Other long term (current) drug therapy; Z88.0 Allergy status to penicillin; L97.529 Non-pressure chronic ulcer of other part of left foot with unspecified severity
CPT/HCPCS: 28112; 88304; 88311; J1100; J2250; J2370; J2405; J3010

== ENCOUNTER → 2020-06-12 | Outpatient (REF) | payer OTHER ==
[~2020-06-12] MED LIST changes: -CLINDAMYCIN 600 MG in IV 1 EA IV ONE; +HYDR-3713 PO; -LIDOCAINE 1% MDV 20ML VIAL SQ PRN; -LR 1,000 ML IV ONE
[2020-06-12 18:04] LABS: MAU/CREAT RATIO 74.2 MCG/MG (0.0-30.0)
== END ==
LOC: M LAB REF 16:57
PROVIDERS: ATTEND Nurse Practitioner Family
DX: E11.65 Type 2 diabetes mellitus with hyperglycemia (principal)

== ENCOUNTER 2020-08-11 00:51 | Emergency (ER) | payer OTHER ==
[~2020-08-11] VITALS: Ht 172.7 cm; Wt 95.5 kg
[~2020-08-11 00:51] MED LIST changes: -LISI-538 PO; +LISI20TA33 PO
--- OUTSIDE RECORDS SUMMARY | 2020-08-11 00:59 | CCD | Continuity of Care Document ---
Author Author José Miguel MANN RUBBER TIRE CURER Organization Unknown Address [address] [address] Phone [phone] Care Team Providers Care Chemist Assistant Name Role Phone Flynn Prado MD AUTM [phone] Problems Active Problems Provider Date Essential hypertension Maritza Mann NP Onset: 10/19/2019 Social History Type Date Description Comments Sex Unknown ETOH Use Never used alcohol Tobacco Use Start: Unknown End: Unknown Patient is a former smoker smoked cigars Smoking Status Reviewed: 06/12/20 Patient is a former smoker sm oked cigars Allergies, Adverse Reactions, Alerts Active Allergies Reaction Severity Comments Date Penicillins rash,anaphylaxis 10/19/2019 Medications Active Medications SIG Qnty Indications Ordering Provide r Date Vitamin D3 125mcg (5000 Ut) Tablet s Take One Tablet By Mouth Every Day With Dinner 90tabs Kelly Alexandra MD 01/16/2020 Vascepa 1gm Capsules 2 tabs by mouth twice a day 360caps E78.2 Maritza Mann NP 12/20/2019 Trulicity 1.5mg/0.5ML Solution Pen -Inject Inject The Contents Of One Pen Under The Skin Once Weekly 6ml Angela Alexandra MD 10/20/2019 Farxiga 10mg Tablets Take One Tablet By Mouth Every Morning 90tabs Maritza Mann NP 0 Atorvastatin Calcium 20mg Tablets Take One Tablet By Mouth Every Day 30tabs Maritza Mann NP Glipizide 5mg Tablets 2 tabs by mouth twice a day 120tabs Maritza Mann NP Lisinopril 40mg Tablets 1 po qd Unknown Metformin HCL 1000mg Tablets 1 by mouth twice a day 180tabs Maritza Mann NP Omeprazole 20mg Capsules DR 1 po qd Unknown Amlodipine Besylate 5mg Tablets one tab po qd Unknown History Medications Vitamin D (Ergocalciferol) 1.25mg (59808 Ut) Capsules Take One Capsule By Mouth Once Weekly 12caps E55.9 Maritza Mann NP 01/08/2020 - 06/12/2020 Immunizations Description No Information Available Vital Signs Date Vital Result Comment 06/12/2020 9:00am BP Systolic 135 mmHg BP Diastolic 85 mmHg Heart Rate 105 /min Body Temperature 97.0 F Height 68.5 inches 5'8.50" Weight 207.00 lb BMI (Body Mass Index) 31.0 kg/m2 O2 % BldC Oximetry 98 % 03/20/2020 8:42am BP Systolic 152 mmHg BP Diastolic 100 mmHg Heart Rate 104 /min Height 68.5 inches 5'8.50" Weight 206.12 lb BMI (Body Mass Index) 30.9 kg/m2 O2 % BldC Oximetry 98 % Results Test Acquired Date Facility Test Result H/L Range Note Urine Micro/Creat Ratio Random 06/12/2020 [facility] [address] [place] [address] (315)- - Creatinine, Urine 105.0 mg/dL Normal Malb Urine Siemens 78.0 mg/L Normal Elvin/Creat Ratio 74.2 MCG/MG High 0.0-30.0 1 Laboratory test finding 03/20/2020 In House Hemoglobin A1c 8.5 Glucose 212 Laboratory test finding 12/20/2019 In House Glucose 152 Hemoglobin A1c 7.5 1 THE [place] [employer] ATION STATES THAT MICROALBUMINURIA IS PRESENT IF THE MICROALBUMIN/CREATININE RATIO EXCEEDS 30 MCG/MG. THE THRESHOLD FOR CLINICAL ALBUMINURIA IS REACHED AT 300 MCG/MG. THE CLASSIFICATION OF A PATIENT SHOULD BE BASED UPON AT LEAST 2 OF 3 ABNORMAL RESULTS ON SPECIMENS COLLECTED WITHIN A 3 TO 6 MONTH TIME FRAME. Procedures Date Code Description Status 10/20/2019 [id number] Diabetic Foot Exam Completed Medical Devices Description No Information Available Encounters Type Date Location Provider Dx Diagnosis Office Visit 06/12/2020 8:45a DR. Angela Mann NP E1 1.65 Type 2 diabetes mellitus with hyperglycemia E78.2 Mixed hyperlipidemia I10 Essential (primary) hyperten peace E55.9 Vitamin D deficiency, unspec ified Office Visit 03/20/2020 8:45a DR. Angela Mann, [place] E1 1.65 Type 2 diabetes mellitus with hyperglycemia E78.2 Mixed hyperlipidemia I10 Essential (primary) hyperten peace E55.9 Vitamin D deficiency, unspec ified Office Visit 12/20/2019 9:15a DR. Angela Mann NP E1 1.65 Type 2 diabetes mellitus with hyperglycemia E78.2 Mixed hyperlipidemia I10 Essential (primary) hyperten peace E55.9 Vitamin D deficiency, unspec ified Assessments Date Code Description Provider 06/12/2020 E11.65 Type 2 diabetes mellitus with hy perglycemia Maritza Mann, [place] 06/12/2020 E78.2 Mixed hyperlipidemia Maritza rodriguez, RUBBER TIRE CURER 06/12/2020 I10 Essential (primary) hypertension Maritza Mann, [place] 06/12/2020 E55.9 Vitamin D deficiency, unspecifie d Maritza Mann, RUBBER TIRE CURER 03/20/2020 E11.65 Type 2 diabetes mellitus with hy perglycemia Maritza Mann, RUBBER TIRE CURER 03/20/2020 E78.2 Mixed hyperlipidemia Maritza rodriguez, RUBBER TIRE CURER 03/20/2020 I10 Essential (primary) hypertension Maritza Mann, RUBBER TIRE CURER 03/20/2020 E55.9 Vitamin D deficiency, unspecifie d Maritza Mann, RUBBER TIRE CURER 12/20/2019 E11.65 Type 2 diabetes mellitus with hy perglycemia Maritza Mann, [place] 12/20/2019 E78.2 Mixed hyperlipidemia Maritza rodriguez, RUBBER TIRE CURER 12/20/2019 I10 Essential (primary) hypertension Maritza Mann, RUBBER TIRE CURER 12/20/2019 E55.9 Vitamin D deficiency, unspecifie d Maritza Mann NP Plan of Treatment Future Appointment(s):* 09/11/2020 9:45 am - Maritza Mann NP at DR. Angela Alexandra 06/12/2020 - Maritza Mann NP* E11.65 Type 2 diabetes mellitus with hyperglycemia* Comments:* Pt with long hx of uncontrolled Diabetes. States dx 20 yrs ago06/12/2020- in office A1c= 8.2% (8.5%, 7.5%, 9.4%, 10%.) Manual meter download- fasting- 121-227Reviewed diet- admits that he has become more laxed about diet. No exercise. Current medication: Farxiga 10mg po qd, Metformin 1000mg BID, Trulicity 1.5mg Glipizide 5mg 2 tabs po BID.Encourage fluids Needs to start checking fasting and 2 hrs ppIf no improvement- needs basal insulinRTO 3 months * Follow up:* RTO 3 months [facility]FIN[facility] * E78.2 Mixed hyperlipidemia* Comments:* LDL goal < 100Labs done 12/13/2019- chol= 180, Trig= 482, HDL= 24, LDL-unable to calculate On Atorvastatin 20mg po qd and Vascepa 1gm 2 tabs po BIDLabs done 06/06/2020- chol= 96, Trig= 130, HDL= 25, LDL= 48- much improved. Vascepa is the only drug FDA approved as an adjunct to maximally TOLERATED statin therapy to reduce the risk of [place], stroke, coronary revascularization, and unstable angina requiring hospi talization in adult patients with triglycerides > =150mg/dl and established CVD or DIABETES and 2 or more CVD risk factors. * I10 Essential (primary) hypertension* Comments:* On TRINITY. Lisinopril 40mg po and Amlodipine 5mg qd. BP 135/85 * E55.9 Vitamin D deficiency, unspecified* Comments:* Labs done 10/17/2019- Vit D= 24.9 Per pt, was started on Vit D by PCPPt is unsure what dose he is takingTreated with Vit D 50,000iu qweek x 12 weeks. Also Vit D 5000iu qd. Labs done 12/13/2019- Vit D= 50.1 Now on it D 5000iu qdLabs done 06/06/2020- Vit D= 49.1 Functional Status Description No Information Available Mental Status Description No Information Available Referrals Description No Information Available
--- OUTSIDE RECORDS SUMMARY | 2020-08-11 00:59 | CCD | Continuity of Care Document ---
Author Author José Miguel MANN QUALIFICATION ENGINEER Organization Unknown Address [address] [address] Phone [phone] Care Team Providers Care Brick Off Bearer Name Role Phone Flynn Prado MD AUTM [phone] Problems Active Problems Provider Date Essential hypertension [...] One Tablet By Mouth Every Morning 90tabs Angela Alexandra MD 10/20/19 20 Atorvastatin Calcium 20mg Tablets Take One Tablet By Mouth Every Day 30tabs Angela Alexandra MD Glipizide 5mg Tablets 2 tabs by mouth twice a day 120tabs Maritza Mann NP Lisinopril 40mg Tablets 1 po qd Unknown Metformin HCL 1000mg Tablets 1 po bid Unknown Omeprazole 20mg Capsules DR 1 po qd Unknown Amlodipine Besylate 5mg Tablets one tab po qd Unknown History Medications Vitamin D (Ergocalciferol) 1.25mg (74044 Ut) Capsules Take One Capsule By Mouth [...] Date Facility Test Result H/L Range Note Laboratory test finding 03/20/2020 In House Hemoglobin A1c 8.5 Glucose 212 Laboratory test finding 12/20/2019 In House Glucose 152 Hemoglobin A1c 7.5 Procedures Date Code Description Status 10/20/2019 [id number] Diabetic Foot Exam Completed Medical Devices Description No Information Available Encounters Type Date Location Provider Dx Diagnosis Office Visit 06/12/2020 8:45a DR. Angela Mann, QUALIFICATION ENGINEER E1 1.65 Type 2 diabetes mellitus with hyperglycemia E78.2 Mixed hyperlipidemia I10 Essential (primary) hyperten peace E55.9 Vitamin D deficiency, unspec ified Office Visit 03/20/2020 8:45a DR. Angela Mann, QUALIFICATION ENGINEER E1 1.65 Type 2 diabetes mellitus with hyperglycemia E78.2 Mixed hyperlipidemia I10 Essential (primary) hyperten peace E55.9 Vitamin D deficiency, unspec ified Office Visit 12/20/2019 9:15a DR. Angela Mann, QUALIFICATION ENGINEER E1 1.65 Type 2 diabetes mellitus with hyperglycemia E78.2 Mixed hyperlipidemia I10 Essential (primary) hyperten peace E55.9 Vitamin D deficiency, unspec ified Assessments Date Code Description Provider 06/12/2020 E11.65 Type 2 diabetes mellitus with hy perglycemia Maritza Mann, [place] 06/12/2020 E78.2 Mixed hyperlipidemia Maritza rodriguez, QUALIFICATION ENGINEER 06/12/2020 I10 Essential (primary) hypertension Maritza Mann, QUALIFICATION ENGINEER 06/12/2020 E55.9 Vitamin D deficiency, unspecifie d Maritza Mann, QUALIFICATION ENGINEER 03/20/2020 E11.65 Type 2 diabetes mellitus with hy perglycemia Maritza Mann, QUALIFICATION ENGINEER 03/20/2020 E78.2 Mixed hyperlipidemia Maritza rodriguez, QUALIFICATION ENGINEER 03/20/2020 I10 Essential (primary) hypertension Maritza Mann, QUALIFICATION ENGINEER 03/20/2020 E55.9 Vitamin D deficiency, unspecifie d Maritza Mann, QUALIFICATION ENGINEER 12/20/2019 E11.65 Type 2 diabetes mellitus with hy perglycemia Maritza Mann, QUALIFICATION ENGINEER 12/20/2019 E78.2 Mixed hyperlipidemia Maritza rodriguez, QUALIFICATION ENGINEER 12/20/2019 I10 Essential (primary) hypertension Maritza Mann, QUALIFICATION ENGINEER 12/20/2019 E55.9 Vitamin D deficiency, unspecifie d Maritza aMnn NP Plan of Treatment Future Appointment(s):* 09/11/2020 9:45 am - Maritza Mann NP at DR. Angela Alexandra 06/12/2020 - Maritza Mann NP* E11.65 Type 2 diabetes mellitus with hyperglycemia* New Labs:* Urine Micro/Creat Ratio Random, Scheduled: 06/12/20 * Comments:* Pt with long hx of uncontrolled Diabetes. States dx 20 yrs ago06/12/2020- in office A1c= 8.2% (8.5%, 7.5%, 9.4%, 10%.) Manual meter download- fasting- 121-317Reviewed diet- admits that he has become more [...] statin therapy to reduce the risk of [place], stroke, coronary revascularization, and unstable angina requiring [...]
--- OUTSIDE RECORDS SUMMARY | 2020-08-11 00:59 | CCD | Continuity of Care Document ---
Author José Miguel Wall DPM Organization Unknown Address [address] [place] [address], [address] [place] [address] Phone [phone] Care Team Providers Care Metal Riveting Machine Operator Name Role Phone Eve Esteban, Flynn POOLE [phone] Andrei Montana M.D. [phone] Problems Active Problems Provider Date Osteochondropathy Wei Abdullahi DPM Onset: 04/25/2019 Peripheral vascular disorder due to diabetes mellitus Wei Abdullahi DPM Onset: 04/25/2019 Amputated big toe Wei Abdullahi DPM Onset: 04/11/2020 Social History Type Date Description Comments Sex Unknown ETOH Use Denies alcohol use Tobacco Use Start: Unknown Patient has never smoked Allergies, Adverse Reactions, Alerts Active Allergies Reaction Severity Comments Date Penicillin 08/20/2017 Medications Active Medications SIG Qnty Indications Ordering Provide r Date Bactrim DS 800-160mg Tablets 1 tab by mouth twice daily 20tabs Wei Abdullahi DPM 0 Clindamycin HCL 300mg Capsules 1 tab by mouth three times a day 21caps Wei Abdullahi DPM 07/2019 Vitamin D Cap 1000Unit 1000Iu Take 1 Capsule By Mouth Once Daily 90units Wei Abdullahi DPM 05/29/2019 Invokamet 50-1000mg Tablets Take 1 Tablet By Mouth Twice Daily With Meals Unknown Ibuprofen 600mg Tablets Take 1 Tablet By Mouth 4 Times Daily as Needed Unknown Chlorhexidine Gluconate 0.12% Solu tion Rinse With 1 Capful 3 Times Daily Starting Tomorrow Unknown Hydrocodone-Acetaminophen 5-325mg Tablets Take 1 Tablet By Mouth Every 4 To 6 Hours as Needed For Pain . DO Not Exceed 6 Per 24 Hours Unknown Vitamin D-3 25mcg (1000 Ut) Capsul es Take 1 Capsule By Mouth Once Daily Unknown Immunizations Description No Information Available Vital Signs Date Vital Result Comment 10/17/2019 9:47am Height 68 inches 5'8" Weight 213.00 lb BP Systolic 158 mmHg BP Diastolic 84 mmHg Heart Rate 103 /min BMI (Body Mass Index) 32.4 kg/m2 10/26/2017 8:44am Height 68 inches 5'8" Weight 215.00 lb BP Systolic 122 mmHg BP Diastolic 70 mmHg Heart Rate 80 /min BMI (Body Mass Index) 32.7 kg/m2 Results Description No Information Available Procedures Description No Information Available Medical Devices Description No Information Available Encounters Type Date Location Provider Dx Diagnosis Office Visit 07/12/2020 10:15a [facility] Wei Abdullahi DPM M20.40 Other hammer toe(s) (acquired), unspecified foot E11.59 Type 2 diabetes mellitus wit [facility] circulatory complications Office Visit 04/02/2020 11:00a [facility] Wei Abdullahi DPM 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, unsp ankle and foot E11.59 Type 2 diabetes mellitus wit [facility] circulatory complications Assessments Date Code Description Provider 07/12/2020 M20.40 Other hammer toe(s) (acquired), unspecified foot Wei Abdullahi DPM 07/12/2020 E11.59 Type 2 diabetes mellitus with ot her circulatory complications Wei Abdullahi DPM 04/11/2020 Z89.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 Wei Abdullahi DPM 04/03/2020 E11.59 Type 2 diabetes mellitus with ot her circulatory complications Wei Abdullahi DPM 04/03/2020 M84.871 Other disorders of continuity of bone, right ankle and foot Wei Abdullahi DPM 04/03/2020 M84.872 Other disorders of continuity of bone, left ankle and foot Wei Abdullahi DPM 04/03/2020 Z89.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 Wei Abdullahi DPM 04/02/2020 M84.879 Other disorders of c ontinuity of bone, unspecified ankle and foot Wei Abdullahi DPM 04/02/2020 E11.59 Type 2 diabetes mellitus with ot her circulatory complications Wei Abdullahi DPM Plan of Treatment Future Appointment(s):* 09/20/2020 10:30 am - Wei Abdullahi DPM at [facility] Functional Status Description No Information Available Mental Status Description No Information Available Referrals Refer to Reason for Referral Status Appt Date Wei Abdullahi DPM Closed [address] [address] [phone]
--- OUTSIDE RECORDS SUMMARY | 2020-08-11 00:59 | CCD | Continuity of Care Document ---
Author Author José Miguel MANN SUPERVISOR METAL CANS Organization Unknown Address [address] [place] [address] Phone [phone] Care Team Providers Care Corporate Driver Name Role Phone Flynn Prado MD AUTM [phone] Problems Active Problems Provider Date Essential hypertension [...] Unknown History Medications Vitamin D (Ergocalciferol) 1.25mg (21945 Ut) Capsules Take One Capsule By Mouth [...] Range Note Urine Micro/Creat Ratio Random 06/12/2020 [facility] [address] [place] [address] (315)- - Creatinine, Urine 105.0 mg/dL Normal Malb Urine Siemens 78.0 mg/L Normal Elvin/Creat Ratio 74.2 MCG/MG High 0.0-30.0 1 Laboratory test finding 03/20/2020 In House Hemoglobin A1c 8.5 Glucose 212 1 THE [place] [employer] ASSOC[employer] ATION STATES THAT MICROALBUMINURIA IS PRESENT IF THE MICROALBUMIN/CREATININE RATIO EXCEEDS 30 MCG/MG. THE THRESHOLD FOR CLINICAL ALBUMINURIA IS REACHED AT 300 MCG/MG. THE CLASSIFICATION OF A PATIENT SHOULD BE BASED UPON AT LEAST 2 OF 3 ABNORMAL RESULTS ON SPECIMENS COLLECTED WITHIN A 3 TO 6 MONTH TIME FRAME. Procedures Date Code Description Status 10/20/2019 [id number] Diabetic Foot Exam Completed Medical Devices Description No Information Available Encounters Type Date Location Provider Dx Diagnosis Office Visit 06/12/2020 8:45a DR. Angela Mann, [place] E1 1.65 [...] [place] 06/12/2020 E78.2 Mixed hyperlipidemia Maritza rodriguez, SUPERVISOR METAL CANS 06/12/2020 I10 Essential (primary) hypertension Maritza Mann, [place] 06/12/2020 E55.9 Vitamin D deficiency, unspecifie d Maritza Mann, [place] 03/20/2020 E11.65 Type 2 diabetes mellitus with hy perglycemia Maritza Mann, [place] 03/20/2020 E78.2 Mixed hyperlipidemia Maritza rodriguez, SUPERVISOR METAL CANS 03/20/2020 I10 Essential (primary) hypertension Maritza Mann, [place] 03/20/2020 E55.9 Vitamin D deficiency, unspecifie d [...] statin therapy to reduce the risk of [place], stroke, coronary revascularization, and unstable angina requiring [...]
--- OUTSIDE RECORDS SUMMARY | 2020-08-11 01:00 | CCD ---
Author Author [facility] Organization [facility] Address Unknown Phone Unavailable Care Team Providers Care Crane Manager Name Role Phone Steve Alexandraartur [facility]ughen [facility] Unavailable [facility]availabl e [facility] Unavailable Unavailabl e [facility] Unavailable Unavailabl e Fish Rosaline [facility], PA-C Unavailable Unavailabl e FishStevee [facility], PA-C Unavailable Unavailabl e FishStevee [facility], PA-C Unavailable Unavailabl e [facility] Unavailable Unavailabl e [facility] Unavailable Unavailabl e [facility] Unavailable Unavailabl e [facility] Unavailable Unavailabl e [facility] Unavailable Unavailabl e Fish, [facility], PA-C Unavailable Unavailabl e Fish, [facility], PA-C Unavailable Unavailabl e Fish, [facility], PA-C Unavailable Unavailabl e Fish, [facility], PA-C Unavailable Unavailabl e Fish, [facility], PA-C Unavailable Unavailabl e Fish, [facility], PA-C Unavailable Unavailabl e Fish, [facility], PA-C Unavailable Unavailabl e Fish, [facility], PA-C Unavailable Unavailabl e Fish, [facility], PA-C Unavailable Unavailabl e Fish, [facility], PA-C Unavailable Unavailabl e Fish, [facility], PA-C Unavailable Unavailabl e Fish, [facility], PA-C Unavailable Unavailabl e Fish, [facility], PA-C Unavailable Unavailabl e Fish, [facility], PA-C Unavailable Unavailabl e Fish, [facility], PA-C Unavailable Unavailabl e Fish, [facility], PA-C Unavailable Unavailabl e Fish, [facility], PA-C Unavailable Unavailabl e Fish, [facility], PA-C Unavailable Unavailabl e Fish, [facility], PA-C Unavailable Unavailabl e Fish, [facility], PA-C Unavailable Unavailabl e Fish, [facility], PA-C Unavailable Unavailabl e Fish, [facility], PA-C Unavailable Unavailabl e Rosa Elena AMADOR DPM Unavailable Unavailable Rosa Elena AMADOR DPM Unavailable Unavailable Rosa Elena AMADOR DPM Unavailable Unavailable Rosa Elena AMADOR DPM Unavailable Unavailable Rosa Elena AMADOR DPM Unavailable Unavailable Rosa Elena AMADOR DPM Unavailable Unavailable Rosa Elena AMADOR DPM Unavailable Unavailable Rosa Elena AMADOR DPM Unavailable Unavailable Rosa Elena AMADOR DPM Unavailable Unavailable Rosa Elena AMADOR DPM Unavailable Unavailable Rosa Elena AMADOR DPM Unavailable Unavailable Rosa Elena AMADOR DPM Unavailable Unavailable Rosa Elena AMADOR DPM Unavailable Unavailable Rosa Elena AMADOR DPM Unavailable Unavailable Rosa Elena AMADOR DPM Unavailable Unavailable MAJAK, R KARMA DPM Unavailable Unavailable MAJAK, R KARMA DPM Unavailable Unavailable MAJAK, R KARMA DPM Unavailable Unavailable MAJAK, R KARMA DPM Unavailable Unavailable MAJAK, R KARMA DPM Unavailable Unavailable MAJAK, R KARMA DPM Unavailable Unavailable MAJAK, R KARMA DPM Unavailable Unavailable MAJAK, R KARMA DPM Unavailable Unavailable MAJAK, R KARMA DPM Unavailable Unavailable MAJAK, R KARMA DPM Unavailable Unavailable MAJAK, R KARMA DPM Unavailable Unavailable MAJAK, R KARMA DPM Unavailable Unavailable MAJAK, R KARMA DPM Unavailable Unavailable MAJAK, R KARMA DPM Unavailable Unavailable MAJAK, R KARMA DPM Unavailable Unavailable COOK, B VALERIY SOLDERER ASSEMBLER Unavailable Unavailable COOK, B VALERIY SOLDERER ASSEMBLER Unavailable Unavailable COOK, B VALERIY SOLDERER ASSEMBLER Unavailable Unavailable COOK, B VALERIY SOLDERER ASSEMBLER Unavailable Unavailable COOK, B VALERIY SOLDERER ASSEMBLER Unavailable Unavailable COOK, B VALERIY SOLDERER ASSEMBLER Unavailable Unavailable COOK, B VALERIY SOLDERER ASSEMBLER Unavailable Unavailable COOK, B VALERIY SOLDERER ASSEMBLER Unavailable Unavailable COOK, B VALERIY SOLDERER ASSEMBLER Unavailable Unavailable COOK, B VALERIY SOLDERER ASSEMBLER Unavailable Unavailable COOK, B VALERIY SOLDERER ASSEMBLER Unavailable Unavailable COOK, B VALERIY SOLDERER ASSEMBLER Unavailable Unavailable COOK, B VALERIY SOLDERER ASSEMBLER Unavailable Unavailable COOK, B VALERIY SOLDERER ASSEMBLER Unavailable Unavailable COOK, B VALERIY SOLDERER ASSEMBLER Unavailable Unavailable COOK, B VALERIY SOLDERER ASSEMBLER Unavailable Unavailable COOK, B VALERIY SOLDERER ASSEMBLER Unavailable Unavailable COOK, B VALERIY SOLDERER ASSEMBLER Unavailable Unavailable COOK, B VALERIY SOLDERER ASSEMBLER Unavailable Unavailable COOK, B VALERIY SOLDERER ASSEMBLER Unavailable Unavailable COOK, B VALERIY SOLDERER ASSEMBLER Unavailable Unavailable COOK, B VALERIY SOLDERER ASSEMBLER Unavailable Unavailable COOK, B VALERIY SOLDERER ASSEMBLER Unavailable Unavailable COOK, B VALERIY SOLDERER ASSEMBLER Unavailable Unavailable COOK, B VALERIY SOLDERER ASSEMBLER Unavailable Unavailable COOK, B VALERIY SOLDERER ASSEMBLER Unavailable Unavailable COOK, B VALERIY SOLDERER ASSEMBLER Unavailable Unavailable COOK, B VALERIY SOLDERER ASSEMBLER Unavailable Unavailable COOK, B VALERIY SOLDERER ASSEMBLER Unavailable Unavailable COOK, B VALERIY SOLDERER ASSEMBLER Unavailable Unavailable COOK, B VALERIY SOLDERER ASSEMBLER Unavailable Unavailable COOK, B VALERIY SOLDERER ASSEMBLER Unavailable Unavailable COOK, B VALERIY SOLDERER ASSEMBLER Unavailable Unavailable COOK, B VALERIY SOLDERER ASSEMBLER Unavailable Unavailable COOK, B VALERIY SOLDERER ASSEMBLER Unavailable Unavailable COOK, B VALERIY SOLDERER ASSEMBLER Unavailable Unavailable COOK, B VALERIY SOLDERER ASSEMBLER Unavailable Unavailable COOK, B VALERIY SOLDERER ASSEMBLER Unavailable Unavailable COOK, B VALERIY SOLDERER ASSEMBLER Unavailable Unavailable COOK, B VALERIY SOLDERER ASSEMBLER Unavailable Unavailable COOK, B VALERIY SOLDERER ASSEMBLER Unavailable Unavailable COOK, B VALERIY SOLDERER ASSEMBLER Unavailable Unavailable COOK, B VALERIY SOLDERER ASSEMBLER Unavailable Unavailable COOK, B VALERIY SOLDERER ASSEMBLER Unavailable Unavailable COOK, B VALERIY SOLDERER ASSEMBLER Unavailable Unavailable COOK, B VALERIY SOLDERER ASSEMBLER Unavailable Unavailable COOK, B VALERIY SOLDERER ASSEMBLER Unavailable Unavailable COOK, B VALERIY SOLDERER ASSEMBLER Unavailable Unavailable COOK, B VALERIY SOLDERER ASSEMBLER Unavailable Unavailable COOK, B VALERIY SOLDERER ASSEMBLER Unavailable Unavailable COOK, B VALERIY SOLDERER ASSEMBLER Unavailable Unavailable COOK, B VALERIY SOLDERER ASSEMBLER Unavailable Unavailable COOK, B VALERIY SOLDERER ASSEMBLER Unavailable Unavailable COOK, B VALERIY SOLDERER ASSEMBLER Unavailable Unavailable COOK, B VALERIY SOLDERER ASSEMBLER Unavailable Unavailable COOK, B VALERIY SOLDERER ASSEMBLER Unavailable Unavailable COOK, B VALERIY SOLDERER ASSEMBLER Unavailable Unavailable COOK, B VALERIY SOLDERER ASSEMBLER Unavailable Unavailable COOK, B VALERIY SOLDERER ASSEMBLER Unavailable Unavailable COOK, B VALERIY SOLDERER ASSEMBLER Unavailable Unavailable COOK, B VALERIY SOLDERER ASSEMBLER Unavailable Unavailable COOK, B VALERIY SOLDERER ASSEMBLER Unavailable Unavailable COOK, B VALERIY SOLDERER ASSEMBLER Unavailable Unavailable COOK, B VALERIY SOLDERER ASSEMBLER Unavailable Unavailable Re-disclosure Warning The records that you are about to access may contain information from federally-assisted alcohol or drug abuse programs. If such information is present, then the following federally mandated warning applies: This information has been disclosed to you from records protected by federal confidentiality rules (42 CFR part 2). The federal rules prohibit you from making any further disclosure of this information unless further disclosure is expressly permitted by the written consent of the person to whom it pertains or as otherwise permitted by 42 CFR part 2. A general authorization for the release of medical or other information is NOT sufficient for this purpose. The Federal rules restrict any use of the information to criminally investigate or prosecute any alcohol or drug abuse patient.The records that you are about to access may contain highly sensitive health information, the redisclosure of which is protected by Article 27-F of the [facility] Public Health law. If you continue you may have access to information: Regarding HIV / AIDS; Provided by facilities licensed or operated by the [facility] Office of Mental Health; or Provided by the [facility] Office for People With Developmental Disabilities. If such information is present, then the following [facility] mandated warning applies: This information has been disclosed to you from confidential records which are protected by state law. State law prohibits you from making any further disclosure of this information without the specific written consent of the person to whom it pertains, or as otherwise permitted by law. Any unauthorized further disclosure in violation of state law may result in a fine or assisted sentence or both. A general authorization for the release of medical or other information is NOT sufficient authorization for further disc losure. Family History Family Member Name Family Member Gender Family Member Status Date o f Status Description Data Source(s) Unknown Male Problem [facility] ([facility]) Unknown Male Problem [facility] ([facility] Unknown Unknown Problem [facility] (Brad Obrien [facility], ) Encounters Encounter Providers Location Date Indications Data Source(s ) Office Visit Attender: KARMA AMADOR [facility] Office 06/28 09:15:00 AM EST [facility] ([facility] Outpatient Attender: VALERIY MIN NP Physical Therapy 06/12/2020 0 7:45:00 AM EST [facility] ([facility]) Office Visit Attender: KARMA AMADOR [facility] 11/2019 11:00:00 AM EDT [facility] ([facility] Outpatient Attender: VALERIY MIN NP Physical Therapy 03/20/2020 0 8:45:00 AM EDT [facility] ([facility]) Outpatient Attender: KARMA AMADOR [facility] 12/27 01:45:00 PM EDT [facility] ([facility] Outpatient Attender: VALERIY MIN NP Physical Therapy 12/20/2019 0 9:15:00 AM EDT [facility] ([facility] ) Outpatient Attender: KARMA AMADOR [facility] 11/26 01:45:00 PM EDT [facility] ([facility] Office Visit Attender: KARMA AMADOR [facility] 10/27 09:45:00 AM EDT [facility] ([facility] Office Visit Attender: KARMA AMADOR [facility] 10/26 09:30:00 AM EDT [facility] ([facility] Office Visit Attender: KARMA AMADOR [facility] 12/2019 09:30:00 AM EDT [facility] ([facility] Office Visit Attender: KARMA AMADOR [facility] 09/28 09:45:00 AM EDT [facility] ([facility] Outpatient Attender: VALERIY MIN NP Physical Therapy 10/20/2019 0:00:00 AM EDT [facility] ([facility]) Outpatient Attender: KARMA AMADOR [facility] 09/27 09:15:00 AM EDT [facility] ([facility] Outpatient Attender: KARMA AMADOR [facility] 12/2019 08:30:00 AM EST [facility] ([facility] Outpatient Referrer: Parvin MILLIGAN PA-C 08/02/2019 05:3 8:00 AM EST [facility] Outpatient Referrer: Parvin MILLIGAN PA-C 07/21/2019 02:3 3:00 PM EST [facility] Outpatient Attender: KARMA AMADOR [facility] 07/2019 08:30:00 AM EST [facility] ([facility] Medications Medication Brand Name Start Date Product Form Dose Route Admi nistrative Instructions Pharmacy Instructions Status Indications Reaction Description Data Source(s) Cholecalciferol 5000 UNT Oral Tablet Vitamin D3 01/16/2020 12:00:00 A M EDT active [facility] ([facility]) Ergocalciferol 32047 UNT Oral Capsule Vitamin D (Ergocalcife rol) 01/08/2020 12:00:00 AM EDT completed [facility] ([facility]) icosapent ethyl 1000 MG Oral Capsule [Vascepa] Vascepa 12/20/2019 12:00:00 AM EDT ORAL active [facility] ([facility]) Cholecalciferol 5000 UNT Oral Tablet Vitamin D3 10/20/2019 12:00:00 A M EDT ORAL active [facility] ([facility]) dapagliflozin 10 MG Oral Tablet [Farxiga] Farxiga 10/20/2019 1 2:00:00 AM EDT active [facility] ([facility]) Ergocalciferol 84084 UNT Oral Capsule Ergocalciferol 10/20/2019 12:00:00 AM EDT ORAL completed [facility] ([facility]) 0.5 ML dulaglutide 3 MG/ML Auto-Injector [Trulicity] Trulici ty 10/20/2019 12:00:00 AM EDT active M [facility] ([facility]) Sulfamethoxazole 800 MG / Trimethoprim 160 MG Oral Tablet [B actrim] Bactrim DS 10/12/2019 12:00:00 AM EDT ORAL active [facility] ([facility] Clindamycin 300 MG Oral Capsule Clindamycin HCL 06/29/2019 12:00:00 A M EST ORAL active [facility] ([facility] Insurance Providers Payer name Policy type / Coverage type Policy ID Covered libertarian ID Covered libertarian's relationship to bonilla Policy Bonilla Plan Information [facility] [id number] SP [id number] SELF PAY ONLY [id number] SP [id number] UNAVAILABLE UNAVAILA BLE EXCELLUS BCBS B [id number] S ODL [id number] [facility] [id number] SP [id number] [place]/307 [id number] SP [id number] [place] [id number] Self [id number] [place] Commercial [id number] Self [id number] [place] PPO 302/307 [id number] SP [id number] [facility] [id number] SP [id number] UNITED HEALTHCARE O [id number] S [id number] [facility] O [id number] S [id number] [facility] -O/P [id number] 18 [id number] [facility] Commercial Self [employer] [place] [id number] SP [id number] [facility] COMM PLAN LEONEL W [id number] S [id number] [facility] COMM PLAN LEONEL W UNAVAILABLE S UNAVAILABLE HMO BLUE OPTION W [id number] S V [id number] HMO BLUE OPTION W [id number] S 1 [id number] HMO BLUE OPTION W VYT S VYT Problems, Conditions, and Diagnoses Code Display Name Description Problem Type Effective Dates Data Source(s) 844317161 Amputated big toe Amputated big toe Problem 04/11 12:00:00 AM EDT [facility] ([facility] [id number] Essential hypertension Essential hypertension Problem 10/19/2019 12:00:00 AM EDT [facility] ([facility] ) Pressure ulcer of other site, stage 1 Pressure u lcer of other site, stage 1 Problem 09/23/2019 12:00:00 AM EDT - 11/24/2019 12:00:00 AM ED T [facility] Pressure ulcer of other site, stage 2 Pressure u lcer of other site, stage 2 Problem 08/31/2019 12:00:00 AM EST - 09/23/2019 12:00:00 AM ED T [facility] Pressure ulcer of other site, stage 1 Pressure u lcer of other site, stage 1 Problem 08/25/2019 12:00:00 AM EST - 08/31/2019 12:00:00 AM ES T [facility] [id number] Hammer toe Hammer toe Problem 08/10/2019 12:0 0:00 AM EST - 09/23/2019 12:00:00 AM EDT [facility] ([facility] Cellulitis of left toe Cellulitis of left toe Problem 08/10/2019 12:00:00 AM EST - 09/23/2019 12:00:00 AM EDT [facility] ([facility] Pressure ulcer of other site, stage 2 Pressure u lcer of other site, stage 2 Problem 08/10/2019 12:00:00 AM EST - 08/25/2019 12:00:00 AM ES T [facility] ([facility] Cellulitis of left lower limb Cellulitis of left lower limb Problem 07/05/2019 12:00:00 AM EST - 07/30/2019 12:00:00 AM EST [facility] ([facility] Pressure ulcer of other site, stage 1 Pressure u lcer of other site, stage 1 Problem 04/25/2019 12:00:00 AM EDT - 08/10/2019 12:00:00 AM ES T [facility] ([facility] Surgeries/Procedures Procedure Description Date Indications Data Source(s) Ostectomy Partial Excision 5TH Metatarsal Head (Bunionette) 10/23/2019 12:00:00 AM EDT [facility] ([facility] Ostectomy Partial Excision 5TH Metatarsal Head (Bunionette) 10/23/2019 12:00:00 AM EDT [facility] ([facility] Ostectomy Complete Excision 1St Metatarsal Head 2019 12:00:00 AM EDT [facility] ([facility] Ostectomy Complete Excision 1St Metatarsal Head 2019 12:00:00 AM EDT [facility] ([facility] Diabetic Foot Exam 10/20/2019 12:00:00 AM EDT [facility] ([facility] ) DEBRIDEMENT SUBCUTANEOUS TISSUE 20 SQ CM/< 10/17/2019 12:00:00 AM EDT [facility] ([facility] RADEX FOOT COMPLETE MINIMUM 3 VIEWS 10/17/2019 12:00:0 0 AM EDT [facility] ([facility] DEBRIDEMENT OPEN WOUND 20 SQ CM/< 09/11/2019 12:00:00 AM EDT [facility] ([facility] DEBRIDEMENT SUBCUTANEOUS TISSUE 20 SQ CM/< 08/28/2019 12:00:00 AM EST [facility] ([facility] DEBRIDEMENT OPEN WOUND 20 SQ CM/< 08/11/2019 12:00:00 AM EST [facility] ([facility] DEBRIDEMENT SUBCUTANEOUS TISSUE 20 SQ CM/< 08/04/2019 12:00:00 AM EST [facility] ([facility] Tenotomy Toe Subcutaneous Multiple 08/04/2019 12:00:00 AM EST [facility] ([facility] Tenotomy Toe Subcutaneous Multiple 08/04/2019 12:00:00 AM EST [facility] ([facility] DEBRIDEMENT OPEN WOUND 20 SQ CM/< 07/20/2019 12:00:00 AM EST [facility] ([facility] DEBRIDEMENT OPEN WOUND 20 SQ CM/< 07/06/2019 12:00:00 AM EST [facility] ([facility] DEBRIDEMENT OPEN WOUND 20 SQ CM/< 06/29/2019 12:00:00 AM EST [facility] ([facility] DEBRIDEMENT OPEN WOUND 20 SQ CM/< 06/14/2019 12:00:00 AM EST [facility] ([facility] Results ID Date Data Source [id number] 06/12/2020 09:15:00 AM EST [facility] ([facility] ) Name Value Range Interpretation Code Description Data Kristen rce(s) Supporting Document(s) Creatinine [Mass/volume] in Urine 105.0 mg/dL [facility] ([facility]) Microalbumin/Creatinine [Mass Ratio] in Urine 74.2 MCG/MG 0.0-30.0 [facility] ([facility]) THE [place] STATES THAT MICROALBUMINURIA IS PRESENT IF THE MICROALBUMIN/CREATININE RATIO EXCEEDS 30 MCG/MG. THE THRESHOLD FOR CLINICAL ALBUMINURIA IS REACHED AT 300 MCG/MG. THE CLASSIFICATION OF A PATIENT SHOULD BE BASED UPON AT LEAST 2 OF 3 ABNORMAL RESULTS ON SPECIMENS COLLECTED WITHIN A 3 TO 6 MONTH TIME FRAME. Microalbumin [Mass/volume] in Urine 78.0 mg/L [facility] ([facility]) ID Date Data Source [id number] 03/20/2020 08:40:00 AM EDT [facility] ([facility]) Name Value Range Interpretation Code Description Data Kristen rce(s) Supporting Document(s) Hemoglobin A1c/Hemoglobin.total in Blood 8.5 [facility] ([facility]) Glucose [Mass/volume] in Serum or Plasma 212 [facility] ([facility]) ID Date Data Source [id number] 12/20/2019 09:24:00 AM EDT [facility] ([facility]) Name Value Range Interpretation Code Description Data Kristen rce(s) Supporting Document(s) Glucose [Mass/volume] in Serum or Plasma 152 [facility] ([facility]) Hemoglobin A1c/Hemoglobin.total in Blood 7.5 [facility] ([facility]) ID Date Data Source [id number] 10/23/2019 01:52:00 PM EDT [facility] ([facility] Name Value Range Interpretation Code Description Data Kristen rce(s) Supporting Document(s) Glucose [Mass/volume] in Capillary blood by Glucometer 171 mg/dL 70-105 Above high normal [facility] ([facility] ID Date Data Source [id number] 10/23/2019 01:32:00 PM EDT [facility] ([facility] Name Value Range Interpretation Code Description Data Kristen rce(s) Supporting Document(s) Surgical pathology study Laboratory test result [facility] ([facility] FINAL DIAGNOSIS A - Bone, left foot 3rd and 4th metatarsal, resection: Two segments of bone with chronic osteomyelitis and marrow fibrosis, no definite acute osteomyelitis is noted. B - Left foot, 3rd metatarsal, clean margin resection: A 3 mm segment of 3rd metatarsal bone with marrow fibrosis, no acute osteomyelitis is noted. 10/25/2019 - 103 CLINICAL DIAGNOSIS Diabetic with left foot ulcer, osteomyelitis left foot 10/24/2019 - 144 GROSS DIAGNOSIS A - Received in formalin labeled "left foot 3rd and 4th metatarsal" are two fragments of bone with cartilage aggregating 2.6 x 1.8 x 1.2 cm. Represented in one following decalcification. B - Received in formalin labeled "left foot 3rd metatarsal clean margin" is a segment of bone measuring 1 x 0.7 x 0.3 cm. All in (B) following decalcification. -YZ 10/24/2019 - 1444 Signed Tati Lin M.D. 10/25/2019 1053 ID Date Data Source [id number] 10/23/2019 11:59:00 AM EDT [facility] Name Value Range Interpretation Code Description Data Kristen rce(s) Supporting Document(s) Glucose [Mass/volume] in Capillary blood by Glucometer 215 mg/dL 70-105 Above high normal [facility] Doctor Notified Procedure Social History Code Duration Value Status Description Data Source(s ) Smoking 06/12/2020 12:00:00 AM EST Patient is a former smoker completed Patient is a former smoker [facility] ([facility]) Vital Signs ID Date Data Source UNK Name Value Range Interpretation Code Description Data Source(s) Oxygen saturation in Arterial blood by Pulse oximetry 98 % 98 % [facility] ([facility]) Body mass index (BMI) [Ratio] 31.0 kg/m2 31.0 k g/m2 [facility] ([facility]) Body weight 207.00 [lb_av] 207.00 [lb_av] MEDEN T ([facility]) Body height 68.5 [in_i] 68.5 [in_i] [facility] ([facility]) 5'8.50" Body temperature 97.0 [degF] 97.0 [degF] [facility] ([facility]) Heart rate 105 /min 105 /min [facility] ([facility]) Diastolic blood pressure 85 mm[Hg] 85 mm[Hg] [facility] ([facility]) Systolic blood pressure 135 mm[Hg] 135 mm[Hg] M [facility] ([facility]) Oxygen saturation in Arterial blood by Pulse oximetry 98 % 98 % [facility] ([facility]) Body mass index (BMI) [Ratio] 30.9 kg/m2 30.9 k g/m2 [facility] ([facility]) Body weight 206.12 [lb_av] 206.12 [lb_av] [facility] T ([facility]) Body height 68.5 [in_i] 68.5 [in_i] [facility] ([facility]) 5'8.50" Heart rate 104 /min 104 /min [facility] ([facility]) Diastolic blood pressure 100 mm[Hg] 100 mm[Hg] [facility] ([facility]) Systolic blood pressure 152 mm[Hg] 152 mm[Hg] M [facility] ([facility]) Oxygen saturation in Arterial blood by Pulse oximetry 99 % 99 % [facility] ([facility]) Body mass index (BMI) [Ratio] 31.5 kg/m2 31.5 k g/m2 [facility] ([facility]) Body weight 210.00 [lb_av] 210.00 [lb_av] [facility] T ([facility]) Body height 68.5 [in_i] 68.5 [in_i] [facility] ([facility]) 5'8.50" Heart rate 102 /min 102 /min [facility] ([facility]) Diastolic blood pressure 84 mm[Hg] 84 mm[Hg] [facility] ([facility]) Systolic blood pressure 142 mm[Hg] 142 mm[Hg] M [facility] ([facility]) Oxygen saturation in Arterial blood by Pulse oximetry 98 % 98 % [facility] ([facility]) Body mass index (BMI) [Ratio] 31.5 kg/m2 31.5 k g/m2 [facility] [facility] Body weight 210.00 [lb_av] 210.00 [lb_av] MEDEN T ([facility]) Body height 68.5 [in_i] 68.5 [in_i] MEDENT ([facility]) 5'8.50" Heart rate 105 /min 105 /min MED[facility] ([facility] Diastolic blood pressure 98 mm[Hg] 98 mm[Hg] MED[facility] ([facility]) Systolic blood pressure 168 mm[Hg] 168 mm[Hg] M EDENT ([facility] ) Body mass index (BMI) [Ratio] 32.4 kg/m2 32.4 k g/m2 [facility] ([facility] Heart rate 103 /min 103 /min [facility] ([facility] Diastolic blood pressure 84 mm[Hg] 84 mm[Hg] [facility] ([facility] Systolic blood pressure 158 mm[Hg] 158 mm[Hg] EDENT ([facility] Body weight 213.00 [lb_av] 213.00 [lb_av] MEDEN T ([facility] Body height 68 [in_i] 68 [in_i] MEDENT ([facility] 5'8"
[2020-08-11] MEDS ORDERED: VASC1CAP2 (01:18)
[2020-08-11] MEDS ORDERED: HYDR-3490 (01:18)
[2020-08-11] MEDS ORDERED: LISI40TA4 (01:18)
[2020-08-11] MEDS ORDERED: AMLO1TAB24 (01:18)
--- OUTSIDE RECORDS SUMMARY | 2020-08-11 02:43 | CCD ---
Author Author [facility] Organization [facility] Address Unknown Phone Unavailable Care Team Providers Care Molding And Trim Installer Name Role Phone Steve Alexandraartur Pughen [facility]-Last Unavailable [facility]ail[facility] e [facility] Unavailable [facility]availabl e [facility]-C Unavailable Unavailabl e Fish Rosaline [facility], PA-C Unavailable Unavailabl e [facility], PA-C Unavailable Unavailabl e [facility], PA-C Unavailable Unavailabl e [facility]-C Unavailable Unavailabl e [facility]-C Unavailable Unavailabl e [facility]-C Unavailable Unavailabl e [facility]-C Unavailable Unavailabl e [facility], PA-C Unavailable Unavailabl e Fish, [facility], PA-C Unavailable Unavailabl e Fish, [facility], PA-C Unavailable Unavailabl e Fish, [facility], PA-C Unavailable Unavailabl e Fish, [facility], PA-C Unavailable Unavailabl e Fish, [facility], PA-C Unavailable Unavailabl e Fish, [facility], PA-C Unavailable Unavailabl e Fish, [facility], PA-C Unavailable Unavailabl e Fish, [facility], PA-C Unavailable Unavailabl e Fish, [facility], PA-C Unavailable Unavailabl e Fish, [facility], PA-C Unavailable Unavailabl e Fish, [facility], PA-C Unavailable Unavailabl e Fish, [facility], PA-C Unavailable Unavailabl e Fish, [facility], PA-C Unavailable Unavailabl e Fish, [facility], PA-C Unavailable Unavailabl e Fish, [facility], PA-C Unavailable Unavailabl e Fish, [facility], PA-C Unavailable Unavailabl e Fish, [facility], PA-C Unavailable Unavailabl e Fish, [facility], PA-C Unavailable Unavailabl e Fish, [facility], PA-C Unavailable Unavailabl e Fish, [facility], PA-C Unavailable Unavailabl e Fish, [facility], PA-C Unavailable Unavailabl e Fish, [facility], PA-C Unavailable Unavailabl e Rosa Elena AMADOR [...] KARMA DPM Unavailable Unavailable COOK, B VALERIY JUVENILE JUSTICE SPECIALIST Unavailable Unavailable COOK, B VALERIY JUVENILE JUSTICE SPECIALIST Unavailable Unavailable COOK, B VALERIY JUVENILE JUSTICE SPECIALIST Unavailable Unavailable COOK, B VALERIY JUVENILE JUSTICE SPECIALIST Unavailable Unavailable COOK, B VALERIY JUVENILE JUSTICE SPECIALIST Unavailable Unavailable COOK, B VALERIY JUVENILE JUSTICE SPECIALIST Unavailable Unavailable COOK, B VALERIY JUVENILE JUSTICE SPECIALIST Unavailable Unavailable COOK, B VALERIY JUVENILE JUSTICE SPECIALIST Unavailable Unavailable COOK, B VALERIY JUVENILE JUSTICE SPECIALIST Unavailable Unavailable COOK, B VALERIY JUVENILE JUSTICE SPECIALIST Unavailable Unavailable COOK, B VALERIY JUVENILE JUSTICE SPECIALIST Unavailable Unavailable COOK, B VALERIY JUVENILE JUSTICE SPECIALIST Unavailable Unavailable COOK, B VALERIY JUVENILE JUSTICE SPECIALIST Unavailable Unavailable COOK, B VALERIY JUVENILE JUSTICE SPECIALIST Unavailable Unavailable COOK, B VALERIY JUVENILE JUSTICE SPECIALIST Unavailable Unavailable COOK, B VALERIY JUVENILE JUSTICE SPECIALIST Unavailable Unavailable COOK, B VALERIY JUVENILE JUSTICE SPECIALIST Unavailable Unavailable COOK, B VALERIY JUVENILE JUSTICE SPECIALIST Unavailable Unavailable COOK, B VALERIY JUVENILE JUSTICE SPECIALIST Unavailable Unavailable COOK, B VALERIY JUVENILE JUSTICE SPECIALIST Unavailable Unavailable COOK, B VALERIY JUVENILE JUSTICE SPECIALIST Unavailable Unavailable COOK, B VALERIY JUVENILE JUSTICE SPECIALIST Unavailable Unavailable COOK, B VALERIY JUVENILE JUSTICE SPECIALIST Unavailable Unavailable COOK, B VALERIY JUVENILE JUSTICE SPECIALIST Unavailable Unavailable COOK, B VALERIY JUVENILE JUSTICE SPECIALIST Unavailable Unavailable COOK, B VALERIY JUVENILE JUSTICE SPECIALIST Unavailable Unavailable COOK, B VALERIY JUVENILE JUSTICE SPECIALIST Unavailable Unavailable COOK, B VALERIY JUVENILE JUSTICE SPECIALIST Unavailable Unavailable COOK, B VALERIY JUVENILE JUSTICE SPECIALIST Unavailable Unavailable COOK, B VALERIY JUVENILE JUSTICE SPECIALIST Unavailable Unavailable COOK, B VALERIY JUVENILE JUSTICE SPECIALIST Unavailable Unavailable COOK, B VALERIY JUVENILE JUSTICE SPECIALIST Unavailable Unavailable COOK, B VALERIY JUVENILE JUSTICE SPECIALIST Unavailable Unavailable COOK, B VALERIY JUVENILE JUSTICE SPECIALIST Unavailable Unavailable COOK, B VALERIY JUVENILE JUSTICE SPECIALIST Unavailable Unavailable COOK, B VALERIY JUVENILE JUSTICE SPECIALIST Unavailable Unavailable COOK, B VALERIY JUVENILE JUSTICE SPECIALIST Unavailable Unavailable COOK, B VALERIY JUVENILE JUSTICE SPECIALIST Unavailable Unavailable COOK, B VALERIY JUVENILE JUSTICE SPECIALIST Unavailable Unavailable COOK, B VALERIY JUVENILE JUSTICE SPECIALIST Unavailable Unavailable COOK, B VALERIY JUVENILE JUSTICE SPECIALIST Unavailable Unavailable COOK, B VALERIY JUVENILE JUSTICE SPECIALIST Unavailable Unavailable COOK, B VALERIY JUVENILE JUSTICE SPECIALIST Unavailable Unavailable COOK, B VALERIY JUVENILE JUSTICE SPECIALIST Unavailable Unavailable COOK, B VALERIY JUVENILE JUSTICE SPECIALIST Unavailable Unavailable COOK, B VALERIY JUVENILE JUSTICE SPECIALIST Unavailable Unavailable COOK, B VALERIY JUVENILE JUSTICE SPECIALIST Unavailable Unavailable COOK, B VALERIY JUVENILE JUSTICE SPECIALIST Unavailable Unavailable COOK, B VALERIY JUVENILE JUSTICE SPECIALIST Unavailable Unavailable COOK, B VALERIY JUVENILE JUSTICE SPECIALIST Unavailable Unavailable COOK, B VALERIY JUVENILE JUSTICE SPECIALIST Unavailable Unavailable COOK, B VALERIY JUVENILE JUSTICE SPECIALIST Unavailable Unavailable COOK, B VALERIY JUVENILE JUSTICE SPECIALIST Unavailable Unavailable COOK, B VALERIY JUVENILE JUSTICE SPECIALIST Unavailable Unavailable COOK, B VALERIY JUVENILE JUSTICE SPECIALIST Unavailable Unavailable COOK, B VALERIY JUVENILE JUSTICE SPECIALIST Unavailable Unavailable COOK, B VALERIY JUVENILE JUSTICE SPECIALIST Unavailable Unavailable COOK, B VALERIY JUVENILE JUSTICE SPECIALIST Unavailable Unavailable COOK, B VALERIY JUVENILE JUSTICE SPECIALIST Unavailable Unavailable COOK, B VALERIY JUVENILE JUSTICE SPECIALIST Unavailable Unavailable COOK, B VALERIY JUVENILE JUSTICE SPECIALIST Unavailable Unavailable COOK, B VALERIY JUVENILE JUSTICE SPECIALIST Unavailable Unavailable COOK, B VALERIY JUVENILE JUSTICE SPECIALIST Unavailable Unavailable COOK, B VALERIY JUVENILE JUSTICE SPECIALIST Unavailable Unavailable Re-disclosure Warning The records that [...] is protected by Article 27-F of the [facility] Public Health law. If you continue you may have access to information: Regarding HIV / AIDS; Provided by facilities licensed or operated by the [facility] Office of Mental Health; or Provided by the [facility] Office for People With Developmental Disabilities. If such information is present, then the following [facility] mandated warning applies: This information has been [...] law may result in a fine or correction sentence or both. A general authorization for the release of medical or other information is NOT sufficient authorization for further disc losure. Family History Family Member Name Family Member Gender Family Member Status Date o f Status Description Data Source(s) Unknown Male Problem MEDENT ([facility]) Unknown Male Problem MED[facility] ([facility] Unknown Unknown Problem MEDENT (Brad Obrien MD, ) Encounters Encounter Providers Location Date Indications Data Source(s ) Office Visit Attender: KARMA AMADOR [facility] Office 06/28 09:15:00 AM EST [facility] ([facility] Outpatient Attender: VALERIY MIN NP Physical Therapy 06/12/2020 0 7:45:00 AM EST MEDENT ([facility]) Office Visit Attender: KARMA AMADOR [facility] Office 11/2019 11:00:00 AM EDT MEDENT ([facility] Outpatient Attender: VALERIY MIN NP Physical Therapy 03/20/2020 0 8:45:00 AM EDT MEDENT ([facility]) Outpatient Attender: KARMA AMADOR [facility] Office 12/27 01:45:00 PM EDT MEDENT ([facility] Outpatient Attender: VALERIY MIN NP Physical Therapy 12/20/2019 0 9:15:00 AM EDT MEDENT ([facility] Outpatient Attender: KARMA AMADOR [facility] Office 11/26 01:45:00 PM EDT MED[facility] ([facility] Office Visit Attender: KARMA AMADOR [facility] Office 10/27 09:45:00 AM EDT MED[facility] ([facility] Office Visit Attender: KARMA AMADOR [facility] Office 10/26 09:30:00 AM EDT MED[facility] ([facility] Office Visit Attender: KARMA AMADOR [facility] Office 12/2019 09:30:00 AM EDT MED[facility] ([facility] Office Visit Attender: KARMA AMADOR [facility] Office 09/28 09:45:00 AM EDT MED[facility] ([facility] Outpatient Attender: VALERIY MIN NP Physical Therapy 10/20/2019 0:00:00 AM EDT MEDENT ([facility] Outpatient Attender: KARMA AMADOR [facility] Office 09/27 09:15:00 AM EDT MED[facility] ([facility] Outpatient Attender: KARMA AMADOR [facility] Office 12/2019 08:30:00 AM EST MED[facility] ([facility] Outpatient Referrer: Parvin MILLIGAN PA-C 08/02/2019 05:3 8:00 AM EST [facility] Outpatient Referrer: Parvin MILLIGAN PA-C 07/21/2019 02:3 3:00 PM EST [facility] Outpatient Attender: KARMA AMADOR [facility] Office 07/2019 08:30:00 AM EST [facility] ([facility] Medications Medication Brand Name Start Date Product Form Dose Route Admi nistrative Instructions Pharmacy Instructions Status Indications Reaction Description Data Source(s) Cholecalciferol 5000 UNT Oral Tablet Vitamin D3 01/16/2020 12:00:00 A M EDT active [facility] Ergocalciferol 41775 UNT Oral Capsule Vitamin D (Ergocalcife rol) 01/08/2020 12:00:00 AM EDT completed MEDENT ([facility]) icosapent ethyl 1000 MG Oral Capsule [Vascepa] Vascepa 12/20/2019 12:00:00 AM EDT ORAL active [facility] Cholecalciferol 5000 UNT Oral Tablet Vitamin D3 10/20/2019 12:00:00 A M EDT ORAL active [facility] ([facility]) dapagliflozin 10 MG Oral Tablet [Farxiga] Farxiga 10/20/2019 1 2:00:00 AM EDT active MED[facility] ([facility]) Ergocalciferol 07784 UNT Oral Capsule Ergocalciferol 10/20/2019 12:00:00 AM EDT ORAL completed MEDENT ([facility]) 0.5 ML dulaglutide 3 MG/ML Auto-Injector [Trulicity] Trulici ty 10/20/2019 12:00:00 AM EDT active M EDENT ([facility]) Sulfamethoxazole 800 MG / Trimethoprim 160 MG Oral Tablet [B actrim] Bactrim DS 10/12/2019 12:00:00 AM EDT ORAL active [facility] ([facility] Clindamycin 300 MG Oral Capsule Clindamycin HCL 06/29/2019 12:00:00 A M EST ORAL active [facility] ([facility] Insurance Providers Payer name Policy type / Coverage type Policy ID Covered constitution party ID Covered constitution party's relationship to bonilla Policy Bonilla Plan Information [facility] [id number] SP [id number] SELF PAY ONLY [id number] SP [id number] O UNAVAILABLE UNAVAILA BLE EXCELLUS BCBS B [id number] S ODL [id number] [facility] [id number] SP [id number] [place] PPO 302/307 [id number] SP [id number] [employer] [id number] Self [id number] [employer] [id number] Self [id number] [employer] [place] PPO 302/307 [id number] SP [id number] [facility] [id number] SP [id number] [employer] O [id number] S [id number] [facility] O [id number] S [id number] [facility] -O/P [id number] 18 [id number] [facility] Commercial Self [employer] [place] [id number] SP [id number] [facility] COMM PLAN LEONEL W [id number] S [id number] [facility] COMM PLAN LEONEL W UNAVAILABLE S UNAVAILABLE HMO BLUE OPTION W [id number] S V [id number] HMO BLUE OPTION W [id number] S 1 [id number] HMO BLUE OPTION W VYT S VYT Problems, Conditions, and Diagnoses Code Display Name Description Problem Type Effective Dates Data Source(s) 731857402 Amputated big toe Amputated big toe Problem 04/11 12:00:00 AM EDT MEDENT ([facility] [id number] Essential hypertension Essential hypertension Problem 10/19/2019 12:00:00 AM EDT MED[facility] ([facility] Pressure ulcer of other [...] ES T [facility] ([facility] [id number] Hammer toe Hammer toe Problem 08/10/2019 12:0 [...] Foot Exam 10/20/2019 12:00:00 AM EDT MEDENT ([facility] ) DEBRIDEMENT SUBCUTANEOUS TISSUE 20 [...] [facility] Results ID Date Data Source [id number] 06/12/2020 09:15:00 AM EST MEDENT ([facility] Name Value Range Interpretation Code Description Data Kristen rce(s) Supporting Document(s) Creatinine [Mass/volume] in Urine 105.0 mg/dL MEDENT ([facility]) Microalbumin/Creatinine [Mass Ratio] in Urine 74.2 MCG/MG 0.0-30.0 MEDENT ([facility]) [employer] [place] [employer] STATES THAT MICROALBUMINURIA IS PRESENT IF THE MICROALBUMIN/CREATININE RATIO EXCEEDS 30 MCG/MG. THE THRESHOLD FOR CLINICAL ALBUMINURIA IS REACHED AT 300 MCG/MG. THE CLASSIFICATION OF A PATIENT SHOULD BE BASED UPON AT LEAST 2 OF 3 ABNORMAL RESULTS ON SPECIMENS COLLECTED WITHIN A 3 TO 6 MONTH TIME FRAME. Microalbumin [Mass/volume] in Urine 78.0 mg/L MEDENT ([facility]) ID Date Data Source [id number] 03/20/2020 08:40:00 AM EDT MEDENT ([facility]) Name Value Range Interpretation Code Description Data Kristen rce(s) Supporting Document(s) Hemoglobin A1c/Hemoglobin.total in Blood 8.5 MEDENT ([facility]) Glucose [Mass/volume] in Serum or Plasma 212 MEDENT ([facility]) ID Date Data Source [id number] 12/20/2019 09:24:00 AM EDT MEDENT ([facility]) Name Value Range Interpretation Code Description Data Kristen rce(s) Supporting Document(s) Glucose [Mass/volume] in Serum or Plasma 152 MEDENT ([facility]) Hemoglobin A1c/Hemoglobin.total in Blood 7.5 MEDENT ([facility]) ID Date Data Source [id number] 10/23/2019 01:52:00 PM EDT MED[facility] ([facility] Name Value Range Interpretation Code Description Data Kristen rce(s) Supporting Document(s) Glucose [Mass/volume] in Capillary blood by Glucometer 171 mg/dL 70-105 Above high normal [facility] ([facility] ID Date Data Source [id number] 10/23/2019 01:32:00 PM EDT MED[facility] ([facility] [...] M.D. 10/25/2019 1053 ID Date Data Source [id number] 10/23/2019 11:59:00 AM EDT MEDENT ([facility] [...] completed Patient is a former smoker MEDENT ([facility]) Vital Signs ID Date Data Source UNK Name Value Range Interpretation Code Description Data Source(s) Oxygen saturation in Arterial blood by Pulse oximetry 98 % 98 % MEDENT ([facility]) Body mass index (BMI) [Ratio] 31.0 kg/m2 31.0 k g/m2 MEDENT ([facility]) Body weight 207.00 [lb_av] 207.00 [lb_av] MEDEN T ([facility]) Body height 68.5 [in_i] 68.5 [in_i] MED[facility] ([facility]) 5'8.50" Body temperature 97.0 [degF] 97.0 [degF] MEDENT ([facility]) Heart rate 105 /min 105 /min MED[facility] ([facility]) Diastolic blood pressure 85 mm[Hg] 85 mm[Hg] MED[facility] ([facility]) Systolic blood pressure 135 mm[Hg] 135 mm[Hg] M EDENT ([facility]) Oxygen saturation in Arterial blood by Pulse oximetry 98 % 98 % MED[facility] ([facility]) Body mass index (BMI) [Ratio] 30.9 kg/m2 30.9 k g/m2 MED[facility] ([facility]) Body weight 206.12 [lb_av] 206.12 [lb_av] MEDEN T ([facility]) Body height 68.5 [in_i] 68.5 [in_i] MED[facility] ([facility]) 5'8.50" Heart rate 104 /min 104 /min MED[facility] ([facility]) Diastolic blood pressure 100 mm[Hg] 100 mm[Hg] MED[facility] ([facility]) Systolic blood pressure 152 mm[Hg] 152 mm[Hg] M EDENT ([facility]) Oxygen saturation in Arterial blood by Pulse oximetry 99 % 99 % MED[facility] ([facility]) Body mass index (BMI) [Ratio] 31.5 kg/m2 31.5 k g/m2 MED[facility] ([facility]) Body weight 210.00 [lb_av] 210.00 [lb_av] MEDEN T ([facility]) Body height 68.5 [in_i] 68.5 [in_i] MED[facility] ([facility]) 5'8.50" Heart rate 102 /min 102 /min MED[facility] ([facility]) Diastolic blood pressure 84 mm[Hg] 84 mm[Hg] MED[facility] ([facility]) Systolic blood pressure 142 mm[Hg] 142 mm[Hg] M EDENT ([facility]) Oxygen saturation in Arterial blood by Pulse oximetry 98 % 98 % MED[facility] ([facility]) Body mass index (BMI) [Ratio] 31.5 kg/m2 31.5 k g/m2 MED[facility] ([facility]) Body weight 210.00 [lb_av] 210.00 [lb_av] MEDEN T ([facility]) Body height 68.5 [in_i] 68.5 [in_i] MED[facility] ([facility]) 5'8.50" Heart rate 105 /min 105 /min [facility] ([facility] Diastolic blood pressure 98 mm[Hg] 98 mm[Hg] MED[facility] ([facility]) Systolic blood pressure 168 mm[Hg] 168 mm[Hg] M EDENT ([facility] Body mass index (BMI) [...]
[2020-08-11] MEDS ORDERED: NS 1,000 ML IV ONE (04:00)
[2020-08-11 04:03] LABS: VENOUS HCO3 24.8 MEQ/L (23.0-27.0); VENOUS O2 SATURATION 70.8 % (60.0-80.0); VENOUS PARTIAL PRESSURE CO2 49.4 mmHg (38.0-50.0); VENOUS PARTIAL PRESSURE O2 39.5 mmHg (30.0-50.0); VENOUS PH 7.318 UNITS (7.330-7.430); VENOUS STANDARD HCO3 22.1 MEQ/L; VENOUS TOTAL CO2 26.3 MEQ/L (24.0-28.0)
[2020-08-11 04:08] LABS: BASO # 0.1 10^3/uL (0.0-0.2); BASO % 0.9 % (0.0-1.0); EOS # 0.2 10^3/uL (0.0-0.5); EOS % 2.6 % (0.0-3.0); HEMATOCRIT 46.6 % (42.0-52.0); HEMOGLOBIN 15.5 g/dl (13.5-17.5); LYMPH # 2.5 10^3/uL (1.5-5.0); LYMPH % 34.8 % (24.0-44.0); MEAN CORPUSCULAR HEMOGLOBIN 27.4 pg (27.0-33.0); MEAN CORPUSCULAR HGB CONC 33.3 g/dl (32.0-36.5); MEAN CORPUSCULAR VOLUME 82.3 fl (80.0-96.0); MONO % 14.3 % (2.0-8.0); NEUTROPHILS # 3.3 10^3/uL (1.5-8.5); NEUTROPHILS % 47.3 % (36.0-66.0); PLATELET COUNT, AUTOMATED 252 10^3/uL (150-450); RED BLOOD COUNT 5.66 10^6/uL (4.30-6.10)
[2020-08-11 04:26] LABS: HEMOGLOBIN A1c 6.8 %
[2020-08-11 04:32] LABS: OSMOLALITY SERUM 295 MOSM/KG (275-295)
[2020-08-11 04:34] LABS: ACETONE/KETONE 0.69 MG/DL (<2.81); BLOOD UREA NITROGEN 12 MG/DL (7-18); CALCIUM LEVEL 9.4 MG/DL (8.5-10.1); CARBON DIOXIDE LEVEL 30 MEQ/L (21-32); CHLORIDE LEVEL 104 MEQ/L (98-107); CREATININE FOR GFR 1.08 MG/DL (0.70-1.30); GLOMERULAR FILTRATION RATE > 60.0 (>60); GLUCOSE, FASTING 193 MG/DL (70-100); SODIUM LEVEL 140 MEQ/L (136-145)
[2020-08-11 05:41] VITALS: BP 145/86
== END 2020-08-11 05:46 | disposition home or self-care (01) ==
LOC: M ED 00:51
DX: E11.65 Type 2 diabetes mellitus with hyperglycemia (principal); Z79.899 Other long term (current) drug therapy; Z79.84 Long term (current) use of oral hypoglycemic drugs; Z88.0 Allergy status to penicillin

== ENCOUNTER → 2021-09-17 | Outpatient (CLI) | payer BC ==
[~2021-09-17] MED LIST changes: +AMLO1TAB24; -DOXY100C PO; +DOXY100C3 PO; +HYDR-3490; +LISI40TA4; +OMEP40CA4 PO; -OMEP40CA97 PO; +VASC1CAP2
== END ==
LOC: M PLAIMG 08:34
PROVIDERS: ATTEND Family Medicine
DX: M75.101 Unspecified rotator cuff tear or rupture of right shoulder, not specified as traumatic (principal)

== ENCOUNTER 2021-09-29 06:24 | Emergency (ER) | payer BC ==
[~2021-09-29] VITALS: Ht 172.7 cm; Wt 88.6 kg
[2021-09-29 06:24] VITALS: BP 167/96
[2021-09-29] MEDS ORDERED: PROPARACAINE 0.5% OPHTH SOL 15ML OD ONE (07:15)
[2021-09-29] MEDS ORDERED: BACTDSTA PO (08:50)
== END 2021-09-29 09:11 | disposition home or self-care (01) ==
LOC: M ED 06:24
DX: S02.31XA Fracture of orbital floor, right side, initial encounter for closed fracture (principal); S02.2XXA Fracture of nasal bones, initial encounter for closed fracture; W21.03XA Struck by baseball, initial encounter; Y92.89 Other specified places as the place of occurrence of the external cause; E11.40 Type 2 diabetes mellitus with diabetic neuropathy, unspecified; I10 Essential (primary) hypertension; E78.5 Hyperlipidemia, unspecified; K21.9 Gastro-esophageal reflux disease without esophagitis; Z88.0 Allergy status to penicillin; Z79.899 Other long term (current) drug therapy; Z79.84 Long term (current) use of oral hypoglycemic drugs; Z79.4 Long term (current) use of insulin

== ENCOUNTER → 2021-12-22 | Outpatient (CLI) | payer BC ==
[~2021-12-22] MED LIST changes: +BACTDSTA PO
== END ==
LOC: M EKG 14:19
PROVIDERS: ATTEND Family Medicine
DX: R42 Dizziness and giddiness (principal)

== ENCOUNTER → 2022-01-30 | Outpatient (CLI) | payer BC | LOC: M EKG 10:53 | PROVIDERS: ATTEND Podiatrist Foot & Ankle Surgery | DX: Z01.818 Encounter for other preprocedural examination (principal) ==

== ENCOUNTER → 2022-02-04 | Outpatient (REF) | payer BC | LOC: M LAB REF 17:15 | PROVIDERS: ATTEND Podiatrist Foot & Ankle Surgery | DX: D48.9 Neoplasm of uncertain behavior, unspecified (principal) ==

== ENCOUNTER 2023-04-04 22:44 | Emergency (ER) | payer BC ==
[~2023-04-04] VITALS: Ht 172.7 cm; Wt 86.5 kg
[~2023-04-04 22:44] MED LIST changes: -AMLO1TAB24; +AMLO1TAB24 PO; +BACI1CAP PO; +CHOL125C6 PO; -DOXY-350 PO; +DOXY-444 PO; +DULA3PEN SC; +GLIP5TAB17 PO; -LISI40TA4; +LISI40TA4 PO; +MELO15TA28 PO; -VASC1CAP2; +VASC1CAP2 PO
[2023-04-04 22:45] VITALS: TEMP 99.3
[2023-04-05 01:32] LABS: BASO # 0.1 10^3/uL (0.0-0.2); BASO % 0.8 % (0.0-1.0); EOS # 0.2 10^3/uL (0.0-0.5); EOS % 2.1 % (0.0-3.0); HEMATOCRIT 42.9 % (42.0-52.0); HEMOGLOBIN 14.5 g/dl (13.5-17.5); LYMPH # 2.8 10^3/uL (1.5-5.0); LYMPH % 26.3 % (24.0-44.0); MEAN CORPUSCULAR HEMOGLOBIN 28.2 pg (27.0-33.0); MEAN CORPUSCULAR HGB CONC 33.8 g/dl (32.0-36.5); MEAN CORPUSCULAR VOLUME 83.3 fl (80.0-96.0); MONO # 1.5 10^3/uL (0.0-0.8); MONO % 13.7 % (2.0-8.0); NEUTROPHILS % 56.7 % (36.0-66.0); PLATELET COUNT, AUTOMATED 292 10^3/uL (150-450); RED BLOOD COUNT 5.15 10^6/uL (4.30-6.10); WHITE BLOOD COUNT 10.6 10^3/uL (4.0-10.0)
[2023-04-05 01:53] LABS: BLOOD UREA NITROGEN 14 MG/DL (9-23); CALCIUM LEVEL 9.1 MG/DL (8.5-10.1); CARBON DIOXIDE LEVEL 24 MMOL/L (20-31); CHLORIDE LEVEL 108 MMOL/L (98-107); CREATININE FOR GFR 0.79 MG/DL (0.70-1.30); GLOMERULAR FILTRATION RATE > 60.0 (>60); GLUCOSE, FASTING 126 MG/DL (60-100); POTASSIUM SERUM 4.3 MMOL/L (3.5-5.1); SODIUM LEVEL 143 MMOL/L (136-145)
[2023-04-05 02:04] LABS: ERYTHROCYTE SEDIMENTATION RATE 36 mm/hr (0-15)
[2023-04-05 02:16] VITALS: BP 133/81; O2SAT 97
[2023-04-05] MEDS ORDERED: VANCOMYCIN HCL 1,000 MG in IV FLUID PLACE HOLDER 1 EA IV ONE (03:05)
[2023-04-05] MEDS ORDERED: LINE1TAB6 PO (03:37)
[2023-04-05] MEDS ORDERED: VANCOMYCIN HCL 1,000 MG, VIAL MATE ADAPTER 1 EACH in D5W 250 ML IV ONE (04:00)
[2023-04-10] MEDS ORDERED: LEVO1TAB39 PO (08:56)
== END 2023-04-05 04:56 | disposition home or self-care (01) ==
LOC: M ED 22:44
DX: L03.115 Cellulitis of right lower limb (principal); E11.40 Type 2 diabetes mellitus with diabetic neuropathy, unspecified; I10 Essential (primary) hypertension; E78.5 Hyperlipidemia, unspecified; Z79.4 Long term (current) use of insulin; Z79.899 Other long term (current) drug therapy; Z88.0 Allergy status to penicillin
CPT/HCPCS: 73630; 80048; 83605; 85025; 85652; 86140; 87040; 87070; 87077; 87186; 96374; 99283; J3370

== ENCOUNTER → 2023-04-06 | Outpatient (REF) | payer BC ==
[~2023-04-06] MED LIST changes: +LEVO1TAB39 PO; +LINE1TAB6 PO
== END ==
LOC: M LAB REF 17:45
PROVIDERS: ATTEND Podiatrist Foot & Ankle Surgery
DX: L03.115 Cellulitis of right lower limb (principal)

== ENCOUNTER → 2023-04-20 | Outpatient (REF) | payer BC, OTHER | LOC: M LAB REF 12:29 | PROVIDERS: ATTEND Podiatrist Foot & Ankle Surgery | DX: L03.115 Cellulitis of right lower limb (principal) ==

== ENCOUNTER 2023-07-29 11:29 | Inpatient (IN) | payer BC ==
[~2023-07-29] VITALS: Ht 172.7 cm; Wt 84.4 kg
[2023-07-29] VITALS (7 sets, daily range): BP systolic 92–159; BP diastolic 70–95; TEMP 97.9–99.7; O2SAT 92–99
[~2023-07-29 11:29] MED LIST changes: +UNRESOLVED CLARIFICATION ENTRY XX SCH
[2023-07-29] MEDS ORDERED: MAALOX 30 ML SUSP *UDC PO PRN (13:20)
[2023-07-29] MEDS ORDERED: MOM 30ML SUSPENSION UDC PO PRN (13:20)
[2023-07-29] MEDS ORDERED: GLUCOSE 4GM CHEW TABLET PO PRN ×2 (13:40→17:15)
[2023-07-29] MEDS ORDERED: MED REC IN PROGRESS XX SCH (13:40)
[2023-07-29] MEDS ORDERED: DEXTROSE 50% 50ML SYRINGE IV PRN ×2 (13:40→17:15)
[2023-07-29] MEDS ORDERED: GLUCAGON INJ 1MG VIAL SC PRN ×2 (13:40→17:15)
[2023-07-29 14:18] LABS: BASO # 0.1 10^3/uL (0.0-0.2); BASO % 0.4 % (0.0-1.0); EOS # 0.2 10^3/uL (0.0-0.5); EOS % 1.3 % (0.0-3.0); HEMATOCRIT 42.3 % (42.0-52.0); HEMOGLOBIN 14.3 g/dl (13.5-17.5); LYMPH # 1.5 10^3/uL (1.5-5.0); LYMPH % 9.3 % (24.0-44.0); MEAN CORPUSCULAR HEMOGLOBIN 27.8 pg (27.0-33.0); MEAN CORPUSCULAR HGB CONC 33.8 g/dl (32.0-36.5); MEAN CORPUSCULAR VOLUME 82.1 fl (80.0-96.0); MONO # 2.3 10^3/uL (0.0-0.8); MONO % 14.1 % (2.0-8.0); NEUTROPHILS # 12.2 10^3/uL (1.5-8.5); NEUTROPHILS % 74.5 % (36.0-66.0); PLATELET COUNT, AUTOMATED 330 10^3/uL (150-450); RED BLOOD COUNT 5.15 10^6/uL (4.30-6.10); WHITE BLOOD COUNT 16.4 10^3/uL (4.0-10.0)
[2023-07-29 14:25] LABS: ERYTHROCYTE SEDIMENTATION RATE 64 mm/hr (0-15)
[2023-07-29 14:43] LABS: C REACTIVE PROTEIN QUANTITATIV 18.1 MG/DL (<1.0); MAGNESIUM LEVEL 1.6 MG/DL (1.8-2.4)
[2023-07-29] MEDS: NS 1,000 ML IV SCH (14:44)
[2023-07-29 14:45] LABS: BLOOD UREA NITROGEN 16 MG/DL (9-23); CALCIUM LEVEL 9.2 MG/DL (8.5-10.1); CARBON DIOXIDE LEVEL 27 MMOL/L (20-31); CHLORIDE LEVEL 104 MMOL/L (98-107); CREATININE FOR GFR 1.04 MG/DL (0.70-1.30); GLOMERULAR FILTRATION RATE > 60.0 (>60); GLUCOSE, FASTING 88 MG/DL (60-100); POTASSIUM SERUM 3.9 MMOL/L (3.5-5.1); SODIUM LEVEL 140 MMOL/L (136-145)
[2023-07-29] MEDS ORDERED: HOME MED LIST COMPLETE! XX SCH (14:50)
[2023-07-29] MEDS: INSULIN LISPRO (NovoLOG) PER UNIT SC SCH ×3 (14:54→21:00)
[2023-07-29 14:57] LABS: PROCALCITONIN 0.14 ng/ml
[2023-07-29] MEDS ORDERED: KETOROLAC 60MG 2ML VIAL As Ordered ONE (15:32)
[2023-07-29] MEDS ORDERED: LIDOCAINE 2% 100MG/5ML SDV (FOR ANES.) As Ordered ONE (15:32)
[2023-07-29] MEDS ORDERED: MIDAZOLAM INJ 2MG/2ML VIAL As Ordered ONE (15:32)
[2023-07-29] MEDS ORDERED: fentaNYL 100 MCG/2 ML INJECTION As Ordered ONE (15:32)
[2023-07-29] MEDS ORDERED: ONDANSETRON 4MG 2ML VIAL As Ordered ONE (15:32)
[2023-07-29] MEDS ORDERED: propofoL 200 MG/20 ML VIAL As Ordered ONE (15:32)
[2023-07-29] MEDS ORDERED: EPINEPHrine 1MG/10ML SYRINGE 1.5IN As Ordered ONE (15:36)
[2023-07-29] MEDS ORDERED: INSULIN LISPRO (NovoLOG) PER UNIT SC ONE (16:00)
[2023-07-29] MEDS: LIDOCAINE 1% SDV 30ML VIAL As Ordered ONE (16:14)
[2023-07-29] MEDS ORDERED: dexmedeTOMIDine (4MCG/ML)200MCG/50ML BTL (PRECEDEX) As Ordered ONE (16:27)
[2023-07-29] MEDS ORDERED: ACETAMINOPHEN 1000MG 100ML IV BAG As Ordered ONE (16:27)
[2023-07-29] MEDS ORDERED: PHENYLephrine 500MCG 5ML (100MCG/ML) SYRINGE As Ordered ONE (16:33)
[2023-07-29] MEDS: LevoFLOXacin IV 750 MG in IV 1 EA IV SCH (16:52)
[2023-07-29] MEDS: NS 1,000 ML IV ONE (17:35)
[2023-07-29] MEDS: MAGNESIUM OXIDE 400MG TAB (MAG-OX) PO ONE (17:58)
[2023-07-29] MEDS: VANCOMYCIN HCL 1,000 MG, VIAL MATE ADAPTER 1 EACH in D5W 250 ML IV ONE ×2 (20:56→23:32)
[2023-07-29] MEDS: ENOXAPARIN 40MG/0.4ML SYRINGE (J1650 PER 10MG) SC SCH (23:32)
[2023-07-29] MEDS: ACETAMINOPHEN TAB 650MG DOSE (2X325MG) PO PRN (23:34)
[2023-07-30] VITALS (8 sets, daily range): BP systolic 138–150; BP diastolic 83–85; TEMP 99–101.6; O2SAT 91–94
[2023-07-30 06:12] LABS: BASO % 0.4 % (0.0-1.0); EOS # 0.2 10^3/uL (0.0-0.5); EOS % 2.1 % (0.0-3.0); LYMPH % 10.1 % (24.0-44.0); MEAN CORPUSCULAR HEMOGLOBIN 27.9 pg (27.0-33.0); MEAN CORPUSCULAR HGB CONC 34.6 g/dl (32.0-36.5); MEAN CORPUSCULAR VOLUME 80.8 fl (80.0-96.0); MONO # 1.3 10^3/uL (0.0-0.8); MONO % 13.3 % (2.0-8.0); NEUTROPHILS % 73.8 % (36.0-66.0); PLATELET COUNT, AUTOMATED 241 10^3/uL (150-450); RED BLOOD COUNT 4.33 10^6/uL (4.30-6.10); WHITE BLOOD COUNT 9.4 10^3/uL (4.0-10.0)
[2023-07-30 06:20] LABS: HEMOGLOBIN 12.1 g/dl (13.5-17.5)
[2023-07-30 06:32] LABS: BLOOD UREA NITROGEN 16 MG/DL (9-23); CALCIUM LEVEL 8.3 MG/DL (8.5-10.1); CARBON DIOXIDE LEVEL 25 MMOL/L (20-31); CHLORIDE LEVEL 107 MMOL/L (98-107); CREATININE FOR GFR 1.05 MG/DL (0.70-1.30); GLOMERULAR FILTRATION RATE > 60.0 (>60); GLUCOSE, FASTING 110 MG/DL (60-100); MAGNESIUM LEVEL 1.3 MG/DL (1.8-2.4); POTASSIUM SERUM 4.4 MMOL/L (3.5-5.1); SODIUM LEVEL 140 MMOL/L (136-145)
[2023-07-30] MEDS ORDERED: VANCOMYCIN HCL 750 MG, VIAL MATE ADAPTER 1 EACH in D5W 250 ML IV SCH (08:00)
[2023-07-30] MEDS: MAG SULF 1GM/100ML (MAG RUN) 1 GM in IV 1 EA IV SCH (08:10)
[2023-07-30 08:23] LABS: VANCOMYCIN RANDOM 15.1 UG/ML
[2023-07-30] MEDS ORDERED: VANCOMYCIN HCL 500 MG in D5W MINI-BAG PLUS 100 ML IV SCH (09:00)
[2023-07-30] MEDS: VANCOMYCIN HCL 1,000 MG, VIAL MATE ADAPTER 1 EACH in D5W 250 ML IV SCH (09:35)
[2023-07-30] MEDS ORDERED: diphenhydrAMINE 50MG/ML VIAL IV PRN (13:30)
[2023-07-30] MEDS ORDERED: cefTRIAXone SOD 250 MG in D5W MINI-BAG PLUS 50 ML IV ONE (14:00)
[2023-07-30] MEDS: cefTRIAXone SOD 250 MG in D5W MINI-BAG PLUS 50 ML IV ONE (14:13)
[2023-07-30] MEDS: cefTRIAXone SOD 500 MG in D5W MINI-BAG PLUS 50 ML IV ONE (16:38)
[2023-07-30] MEDS: cefTRIAXone SOD 1 GM in D5W MINI-BAG PLUS 50 ML IV SCH (18:40)
[2023-07-31 04:51] VITALS: BP 155/89; TEMP 98.9; O2SAT 94
[2023-07-31 05:10] VITALS: BP 155/89; TEMP 98.9; O2SAT 94
[2023-07-31 08:10] LABS: BASO # 0.1 10^3/uL (0.0-0.2); BASO % 0.8 % (0.0-1.0); EOS # 0.3 10^3/uL (0.0-0.5); EOS % 4.4 % (0.0-3.0); HEMATOCRIT 35.1 % (42.0-52.0); HEMOGLOBIN 12.1 g/dl (13.5-17.5); LYMPH # 1.3 10^3/uL (1.5-5.0); LYMPH % 21.5 % (24.0-44.0); MEAN CORPUSCULAR HEMOGLOBIN 27.3 pg (27.0-33.0); MEAN CORPUSCULAR HGB CONC 34.5 g/dl (32.0-36.5); MEAN CORPUSCULAR VOLUME 79.2 fl (80.0-96.0); MONO # 1.3 10^3/uL (0.0-0.8); MONO % 20.7 % (2.0-8.0); NEUTROPHILS # 3.2 10^3/uL (1.5-8.5); NEUTROPHILS % 51.6 % (36.0-66.0); PLATELET COUNT, AUTOMATED 277 10^3/uL (150-450); RED BLOOD COUNT 4.43 10^6/uL (4.30-6.10); WHITE BLOOD COUNT 6.1 10^3/uL (4.0-10.0)
[2023-07-31 08:34] LABS: BLOOD UREA NITROGEN 9 MG/DL (9-23); CALCIUM LEVEL 8.2 MG/DL (8.5-10.1); CARBON DIOXIDE LEVEL 25 MMOL/L (20-31); CHLORIDE LEVEL 105 MMOL/L (98-107); CREATININE FOR GFR 0.88 MG/DL (0.70-1.30); GLOMERULAR FILTRATION RATE > 60.0 (>60); GLUCOSE, FASTING 134 MG/DL (60-100); MAGNESIUM LEVEL 1.4 MG/DL (1.8-2.4); POTASSIUM SERUM 4.2 MMOL/L (3.5-5.1); SODIUM LEVEL 137 MMOL/L (136-145); VANCOMYCIN LEVEL TROUGH 9.5 UG/ML (10.0-20.0)
[2023-07-31] MEDS: DAPAGLIFLOZIN PROPANEDIOL 10MG TABLET (FARXIGA) PO SCH (08:47)
[2023-07-31] MEDS: OMEPRAZOLE 20MG CAP PO SCH (08:47)
[2023-07-31] MEDS: amLODIPine 5 MG TAB PO SCH (08:47)
[2023-07-31] MEDS: lisinopriL 40MG TAB PO SCH (08:47)
[2023-07-31] MEDS: MAGNESIUM OXIDE 400MG TAB (MAG-OX) PO SCH (12:31)
[2023-07-31 14:00] VITALS: BP 148/85; TEMP 98.1; O2SAT 96
[2023-07-31] MEDS: VANCOMYCIN HCL 1,000 MG, VIAL MATE ADAPTER 1 EACH in D5W 250 ML IV SCH (15:05)
[2023-07-31 20:00] VITALS: BP 146/84; TEMP 99.6; O2SAT 95
[2023-07-31] MEDS: ATORVASTATIN 20 MG TAB PO SCH (21:29)
[2023-08-01 05:14] VITALS: BP 137/83; TEMP 100.2; O2SAT 92
[2023-08-01 05:36] LABS: BASO # 0.1 10^3/uL (0.0-0.2); BASO % 0.9 % (0.0-1.0); EOS # 0.4 10^3/uL (0.0-0.5); HEMATOCRIT 37.4 % (42.0-52.0); HEMOGLOBIN 12.9 g/dl (13.5-17.5); LYMPH # 1.2 10^3/uL (1.5-5.0); LYMPH % 17.4 % (24.0-44.0); MEAN CORPUSCULAR HEMOGLOBIN 27.7 pg (27.0-33.0); MEAN CORPUSCULAR HGB CONC 34.5 g/dl (32.0-36.5); MEAN CORPUSCULAR VOLUME 80.4 fl (80.0-96.0); MONO # 1.4 10^3/uL (0.0-0.8); MONO % 20.1 % (2.0-8.0); NEUTROPHILS # 3.9 10^3/uL (1.5-8.5); NEUTROPHILS % 55.3 % (36.0-66.0); PLATELET COUNT, AUTOMATED 290 10^3/uL (150-450); RED BLOOD COUNT 4.65 10^6/uL (4.30-6.10); WHITE BLOOD COUNT 7.1 10^3/uL (4.0-10.0)
[2023-08-01 06:07] LABS: VANCOMYCIN LEVEL TROUGH 13.2 UG/ML (10.0-20.0)
[2023-08-01 06:08] LABS: BLOOD UREA NITROGEN 10 MG/DL (9-23); CALCIUM LEVEL 8.3 MG/DL (8.5-10.1); CARBON DIOXIDE LEVEL 28 MMOL/L (20-31); CHLORIDE LEVEL 102 MMOL/L (98-107); CREATININE FOR GFR 1.01 MG/DL (0.70-1.30); GLOMERULAR FILTRATION RATE > 60.0 (>60); GLUCOSE, FASTING 210 MG/DL (60-100); MAGNESIUM LEVEL 1.5 MG/DL (1.8-2.4); POTASSIUM SERUM 4.2 MMOL/L (3.5-5.1); SODIUM LEVEL 136 MMOL/L (136-145)
[2023-08-01] MEDS: MAG SULF 1GM/100ML (MAG RUN) 1 GM in IV 1 EA IV SCH (08:24)
[2023-08-01] MEDS: MAGNESIUM OXIDE 400MG TAB (MAG-OX) PO SCH (08:25)
[2023-08-01] MEDS: CEFEPIME HCL 2 GM in D5W MINI-BAG PLUS 50 ML IV SCH (11:23)
[2023-08-01 14:00] VITALS: BP 135/82; TEMP 99.6; O2SAT 94
[2023-08-01 20:40] VITALS: BP 126/79; TEMP 101; O2SAT 91
[2023-08-01 23:19] VITALS: TEMP 99
[2023-08-02 05:41] LABS: BASO % 0.7 % (0.0-1.0); EOS # 0.3 10^3/uL (0.0-0.5); EOS % 5.6 % (0.0-3.0); HEMATOCRIT 39.7 % (42.0-52.0); HEMOGLOBIN 13.3 g/dl (13.5-17.5); LYMPH # 1.6 10^3/uL (1.5-5.0); LYMPH % 28.4 % (24.0-44.0); MEAN CORPUSCULAR HEMOGLOBIN 27.5 pg (27.0-33.0); MEAN CORPUSCULAR HGB CONC 33.5 g/dl (32.0-36.5); MONO # 1.3 10^3/uL (0.0-0.8); MONO % 23.9 % (2.0-8.0); NEUTROPHILS # 2.1 10^3/uL (1.5-8.5); NEUTROPHILS % 38.9 % (36.0-66.0); PLATELET COUNT, AUTOMATED 265 10^3/uL (150-450); RED BLOOD COUNT 4.84 10^6/uL (4.30-6.10); WHITE BLOOD COUNT 5.5 10^3/uL (4.0-10.0)
[2023-08-02 06:03] LABS: BLOOD UREA NITROGEN 13 MG/DL (9-23); CALCIUM LEVEL 8.4 MG/DL (8.5-10.1); CARBON DIOXIDE LEVEL 27 MMOL/L (20-31); CHLORIDE LEVEL 107 MMOL/L (98-107); CREATININE FOR GFR 1.05 MG/DL (0.70-1.30); GLOMERULAR FILTRATION RATE > 60.0 (>60); GLUCOSE, FASTING 202 MG/DL (60-100); POTASSIUM SERUM 4.4 MMOL/L (3.5-5.1); SODIUM LEVEL 141 MMOL/L (136-145); VANCOMYCIN LEVEL TROUGH 18.7 UG/ML (10.0-20.0)
[2023-08-02 06:07] VITALS: BP 119/77; TEMP 98.5; O2SAT 95
[2023-08-02] MEDS: LACTOBACILLUS ACIDOPHILUS CAP (BACID) PO SCH (13:04)
[2023-08-02 14:00] VITALS: BP 124/80; TEMP 98.1; O2SAT 96
[2023-08-02] MEDS: ceFAZolin SOD 2 GM in IV 1 EA IV SCH (17:11)
[2023-08-02 19:26] VITALS: BP 122/78; TEMP 99.8; O2SAT 96
[2023-08-03 05:14] VITALS: BP 108/66; TEMP 98.3; O2SAT 93
[2023-08-03 06:05] LABS: BASO % 0.7 % (0.0-1.0); EOS # 0.4 10^3/uL (0.0-0.5); EOS % 6.1 % (0.0-3.0); HEMATOCRIT 38.3 % (42.0-52.0); HEMOGLOBIN 13.1 g/dl (13.5-17.5); LYMPH % 32.1 % (24.0-44.0); MEAN CORPUSCULAR HGB CONC 34.2 g/dl (32.0-36.5); MEAN CORPUSCULAR VOLUME 81.8 fl (80.0-96.0); MONO # 1.1 10^3/uL (0.0-0.8); MONO % 17.3 % (2.0-8.0); NEUTROPHILS # 2.6 10^3/uL (1.5-8.5); PLATELET COUNT, AUTOMATED 274 10^3/uL (150-450); RED BLOOD COUNT 4.68 10^6/uL (4.30-6.10); WHITE BLOOD COUNT 6.1 10^3/uL (4.0-10.0)
[2023-08-03 06:31] LABS: BLOOD UREA NITROGEN 18 MG/DL (9-23); CALCIUM LEVEL 8.2 MG/DL (8.5-10.1); CARBON DIOXIDE LEVEL 27 MMOL/L (20-31); CHLORIDE LEVEL 105 MMOL/L (98-107); GLOMERULAR FILTRATION RATE > 60.0 (>60); GLUCOSE, FASTING 200 MG/DL (60-100); MAGNESIUM LEVEL 1.8 MG/DL (1.8-2.4); POTASSIUM SERUM 4.6 MMOL/L (3.5-5.1); SODIUM LEVEL 138 MMOL/L (136-145)
[2023-08-03 08:20] VITALS: BP 112/50
[2023-08-03] MEDS ORDERED: PROHANCE 279.3MG/ML 5ML VIAL As Ordered ONE (10:14)
[2023-08-03] MEDS ORDERED: PROHANCE 279.3MG/ML 15ML VIAL As Ordered ONE (10:14)
[2023-08-03 14:00] VITALS: BP 111/75; TEMP 98.6; O2SAT 95
[2023-08-03 20:16] VITALS: BP 136/82; TEMP 98.2; O2SAT 93
[2023-08-04 06:00] VITALS: BP 112/76; TEMP 98.2; O2SAT 93
[2023-08-04 06:35] LABS: BASO % 0.6 % (0.0-1.0); EOS # 0.4 10^3/uL (0.0-0.5); EOS % 5.6 % (0.0-3.0); HEMATOCRIT 39.6 % (42.0-52.0); HEMOGLOBIN 13.4 g/dl (13.5-17.5); LYMPH # 1.8 10^3/uL (1.5-5.0); LYMPH % 26.4 % (24.0-44.0); MEAN CORPUSCULAR HEMOGLOBIN 27.6 pg (27.0-33.0); MEAN CORPUSCULAR HGB CONC 33.8 g/dl (32.0-36.5); MEAN CORPUSCULAR VOLUME 81.5 fl (80.0-96.0); MONO # 1.3 10^3/uL (0.0-0.8); MONO % 17.9 % (2.0-8.0); NEUTROPHILS # 3.3 10^3/uL (1.5-8.5); NEUTROPHILS % 47.2 % (36.0-66.0); PLATELET COUNT, AUTOMATED 260 10^3/uL (150-450); RED BLOOD COUNT 4.86 10^6/uL (4.30-6.10)
[2023-08-04 07:00] LABS: BLOOD UREA NITROGEN 16 MG/DL (9-23); CALCIUM LEVEL 8.4 MG/DL (8.5-10.1); CARBON DIOXIDE LEVEL 29 MMOL/L (20-31); CHLORIDE LEVEL 102 MMOL/L (98-107); CREATININE FOR GFR 1.06 MG/DL (0.70-1.30); GLOMERULAR FILTRATION RATE > 60.0 (>60); GLUCOSE, FASTING 223 MG/DL (60-100); MAGNESIUM LEVEL 1.8 MG/DL (1.8-2.4); SODIUM LEVEL 135 MMOL/L (136-145)
[2023-08-04] MEDS: INSULIN LISPRO (NovoLOG) PER UNIT SC SCH (08:38)
[2023-08-04] MEDS ORDERED: CEPH750C PO (12:25)
[2023-08-04] MEDS ORDERED: MAGN400T2 PO (12:28)
[2023-08-04 14:00] VITALS: BP 134/75; TEMP 98.2; O2SAT 94
== END 2023-08-04 18:36 | disposition home or self-care (01) | DRG 710 ==
LOC: M MSPAV 13:16 → PREOBSVTOIN 13:25
PROVIDERS: ADMIT Student in an Organized Health Care Education/Training Program; ATTEND Student in an Organized Health Care Education/Training Program
PROC: 0Y6T0Z0 Detachment at Right 3rd Toe, Complete, Open Approach (ICD-10-PCS; principal; 2023-07-29 15:30)
DX: A41.9 Sepsis, unspecified organism (principal); E11.69 Type 2 diabetes mellitus with other specified complication; M86.8X7 Other osteomyelitis, ankle and foot; I10 Essential (primary) hypertension; L97.519 Non-pressure chronic ulcer of other part of right foot with unspecified severity; E83.42 Hypomagnesemia; E78.5 Hyperlipidemia, unspecified; Z89.422 Acquired absence of other left toe(s); Z89.411 Acquired absence of right great toe; E11.621 Type 2 diabetes mellitus with foot ulcer; Z79.84 Long term (current) use of oral hypoglycemic drugs; Z79.899 Other long term (current) drug therapy; Z88.0 Allergy status to penicillin

== ENCOUNTER → 2024-09-01 | Outpatient (REF) | payer BC, OTHER ==
[~2024-09-01] MED LIST changes: +CEPH750C PO; +DOXY-440 PO; -DOXY-444 PO; +GLIP10TA15 PO; -GLIP10TA6 PO; +MAGN400T2 PO; -UNRESOLVED CLARIFICATION ENTRY XX SCH
[2024-09-01 21:17] LABS: APPEARANCE, URINE CLEAR (CLEAR); BACTERIA, URINE AUTO NEGATIVE (NEGATIVE); BILIRUBIN, URINE AUTO NEGATIVE (NEGATIVE); BLOOD, URINE BLOOD 1+ (NEGATIVE); COLOR, URINE YELLOW (YELLOW); GLUCOSE, URINE (UA) AUTO 3+ mg/dL (NEGATIVE); KETONE, URINE AUTO NEGATIVE (NEGATIVE); LEUKOCYTE ESTERASE, URINE AUTO NEGATIVE (NEGATIVE); MUCUS, URINE SMALL (NEGATIVE); NITRITE, URINE AUTO NEGATIVE (NEGATIVE); PROTEIN, URINE AUTO 1+ mg/dL (NEGATIVE); RBC, URINE AUTO 0 /HPF (0-3); SPECIFIC GRAVITY URINE AUTO 1.028 (1.002-1.035); SQUAMOUS EPITHELIAL CELL UR AU 0 /HPF (0-6); UROBILINOGEN, URINE AUTO 0.2 mg/dL (0.0-2.0); WBC, URINE AUTO 0 /HPF (0-3)
[2024-09-01 22:46] LABS: Trichomonas vaginalis (AMP) NOT DETECTED (NEGATIVE)
[2024-09-01 23:10] LABS: GC DNA AMPLIFICATION NEGATIVE (NEGATIVE)
== END ==
LOC: M LAB REF 21:05
PROVIDERS: ATTEND Physician Assistant
DX: Z11.3 Encounter for screening for infections with a predominantly sexual mode of transmission (principal)

== ENCOUNTER 2025-02-23 19:26 | Emergency (ER) | payer OTHER ==
[~2025-02-23] VITALS: Ht 172.7 cm; Wt 90.9 kg
[~2025-02-23 19:26] MED LIST changes: +ASPI81TA26 PO; -IBUP-1022 PO; +IBUP600T42 PO; +LISI40TA10 PO; -LISI40TA4 PO; +SEMA0.257 INJ
[2025-02-23 21:02] LABS: BASO # 0.1 10^3/uL (0.0-0.2); BASO % 0.9 % (0.0-1.0); EOS # 0.3 10^3/uL (0.0-0.5); EOS % 4.6 % (0.0-3.0); LYMPH # 2.3 10^3/uL (1.5-5.0); LYMPH % 33.2 % (24.0-44.0); MONO # 0.9 10^3/uL (0.0-0.8); MONO % 12.8 % (2.0-8.0); NEUTROPHILS # 3.4 10^3/uL (1.5-8.5); NEUTROPHILS % 48.2 % (36.0-66.0); PLATELET COUNT, AUTOMATED 254 10^3/uL (150-450)
[2025-02-23 21:14] LABS: CK-MB VALUE MASS 3.2 NG/ML (<3.6)
[2025-02-23 21:16] LABS: ALT/SGPT 39 U/L (7.0-40); AST/SGOT 25 U/L (<34); CALCIUM LEVEL 9.5 MG/DL (8.5-10.1); CARBON DIOXIDE LEVEL 27 MMOL/L (20-31); CHLORIDE LEVEL 105 MMOL/L (98-107); CREATININE FOR GFR 0.75 MG/DL (0.70-1.30); GLOMERULAR FILTRATION RATE > 90.0 (>60); POTASSIUM SERUM 4.3 MMOL/L (3.5-5.1); SODIUM LEVEL 144 MMOL/L (136-145)
[2025-02-23 21:21] LABS: CPK CREATINE PHOSPHOKINASE 100 U/L (46-171); MB/CK RELATIVE INDEX 3.20 (< OR =4)
[2025-02-23 22:41] LABS: CK-MB VALUE MASS 2.8 NG/ML (<3.6)
[2025-02-23 22:46] LABS: CPK CREATINE PHOSPHOKINASE 92.0 U/L (46-171); MB/CK RELATIVE INDEX 3.04 (< OR =4)
[2025-02-24] MEDS: KETOROLAC 30 MG/ML 1 ML VIAL IV ONE (00:14)
[2025-02-24 00:45] VITALS: BP 140/73; TEMP 97.3; O2SAT 98
== END 2025-02-24 00:43 | disposition home or self-care (01) ==
LOC: M ED 19:26
DX: M94.0 Chondrocostal junction syndrome [Tietze] (principal); I25.10 Atherosclerotic heart disease of native coronary artery without angina pectoris; I25.2 Old myocardial infarction; I10 Essential (primary) hypertension; E78.5 Hyperlipidemia, unspecified; K21.9 Gastro-esophageal reflux disease without esophagitis; F32.A Depression, unspecified; Z98.84 Bariatric surgery status; Z79.82 Long term (current) use of aspirin; Z79.4 Long term (current) use of insulin; Z79.899 Other long term (current) drug therapy; Z88.0 Allergy status to penicillin
CPT/HCPCS: 71046; 80053; 82248; 82550; 82553; 83690; 84484; 85025; 93005; 93041; 94760; 96374; 99285; J1885